=== PATIENT | female | born 1935 | race Caucasian/White ===

== ENCOUNTER 2016-12-27 10:29 | Emergency (ER) | payer OTHER ==
[~2016-12-27] VITALS: Ht 162.6 cm; Wt 73.0 kg
[~2016-12-27 10:29] MED LIST: ADVA500A INH; ALBU6.7H INH; ALEN1TAB48 PO; ANAS1TAB PO; ASPI1TAB69 PO; AZOP1SUS LEFT EYE; DOXY100C PO; FURO1TAB62 PO; LISI-515 PO; MEDR4PAK PO; SPIRCAP INH
[2016-12-27 10:35] VITALS: BP 156/74; PULSE 122; RESP 20; TEMP 98.3; O2SAT 93
[2016-12-27] MEDS ORDERED: SODIUM CHLORIDE 0.9% FLUSH 10 ML FLUSH IVF PRN (11:15)
[2016-12-27] MEDS ORDERED: methylPREDNISolone SOD SUCC 125 MG/2 ML VIAL IVP ONE (11:15)
[2016-12-27] MEDS: RESP: ALBUTEROL 2.5 MG/IPRATROPIUM 0.5 MG NEB (SCH) INH (11:25)
--- NOTE | 2016-12-27 11:30 | RADHPO ---
EXAM DATE/TIME: 12/27/2016 11:19 [facility] COMPARISON: CHEST SINGLE AP, August 08, 2016, 0:17. INDICATIONS : Short of breath. MEDICAL HISTORY : Hypertension. Chronic obstructive pulmonary disease. SURGICAL HISTORY : None. ENCOUNTER: Initial ACUITY: 1 day PAIN SCORE: 0/10 LOCATION: Bilateral chest FINDINGS: A single view of the chest demonstrates the lungs to be symmetrically aerated without evidence of mas s, infiltrate or effusion. Minimal linear densities in the lower lobes. The cardiomediastinal contou rs are unremarkable. Osseous structures are intact. CONCLUSION: Bibasilar subsegmental atelectasis. Eliazar Mojica MD on December 27, 2016 at 11:28 Board Certified Radiologist. This report was verified electronically.
[2016-12-27 11:33] LABS: AUTOMATED NEUTROPHIL # 3.9 TH/MM3 (1.8-7.7); BASOPHIL # 0.1 TH/MM3 (0-0.2); EOSINOPHIL # 0.2 TH/MM3 (0-0.4); EOSINOPHIL % 3.1 % (0.0-4.0); HEMATOCRIT 42.6 % (35.0-46.0); HEMO FLAGS DIFF FINAL; LYMPH % 17.3 % (9.0-44.0); MEAN CELL VOLUME 93.5 FL (80.0-100.0); MEAN CORPUSCULAR HEMOGLOBIN 30.9 PG (27.0-34.0); MEAN CORPUSCULAR HGB CONC 33.1 % (32.0-36.0); MONO % 8.3 % (0.0-8.0); NEUT % 70.3 % (16.0-70.0); PLATELET COUNT 201 TH/MM3 (150-450); RED BLOOD COUNT 4.55 MIL/MM3 (4.00-5.30); RED CELL DISTRIBUTION WIDTH 13.1 % (11.6-17.2); WHITE BLOOD COUNT 5.7 TH/MM3 (4.0-11.0)
--- NOTE | 2016-12-27 11:38 | PD ---
HPI Chief Complaint: Respiratory Symptoms Time Seen by Provider: 11:11 Travel History International Travel<30 days: No Contact w/Intl Traveler<30days: No Traveled to known affect area: No History of Present Illness HPI 81-year-old female with history of asthma, multiple medical issues, presents to the ER today because she was trying to unclog her drain and used 2 different drain caulking products at the same time this morning and it caused a chemical reaction and released feels that went into her face, and she states she started getting airway irritations and started getting shortness of breath and coughing. She states it is starting to subside now. She denies any splash in the face with the chemicals. She denies loss of consciousness, facial swelling , throat swelling, drooling, or any other issues. Modifying Factors: None Associated Signs & Symptoms: Throat irritation and shortness of breath after being exposed to chemical fumes from brush cleaner's Risk Factors: Asthma history PFSH Past Medical History Hx Anticoagulant Therapy: Yes Arthritis: Yes Cancer: Yes (breast right) Cardiovascular Problems: Yes (htn on meds) COPD: Yes Diminished Hearing: No GERD: Yes Herniated Disk: Yes Hypertension: Yes Respiratory: Yes (copd) Tetanus Vaccination: < 5 Years Influenza Vaccination: No ?: Not Menopausal: Yes Past Surgical History Appendectomy: Yes Eye Surgery: Yes (CATARACT REMOVAL- left eye) Gynecologic Surgery: Yes (right breast lumpectomy) Hysterectomy: Yes Other Surgery: Yes (back repair of herniated disc) Social History Alcohol Use: Yes ( GLASS WINE socially) Tobacco Use: No (quit 14 yrs ago smoked 3 ppd) Substance Use: No Allergies-Medications (Allergen,Severity, Reaction): Coded Allergies: Amoxicillin (Verified Allergy, Intermediate, NAUSEA/CRAMPING/VOMITING, 07/05) Reported Meds & Prescriptions Reported Meds & Active Scripts Active Reported Azopt Opth Drops (Brinzolamide) 1% Susp 1 Drop LEFT EYE DAILY Spiriva Handihaler (Tiotropium Inh) 18 Mcg Cap 18 Mcg INH DAILY 1 capsule = 18 mcg Lasix (Furosemide) 20 Mg Tab 20 Mg PO DAILY Aspirin 81 Mg Tabdr 81 Mg PO DAILY Lisinopril 20 Mg Tab 20 Mg PO BID Advair Diskus Inh (Fluticasone-Salmeterol Inh) 500-50 Mcg/Blist Aer 1 Puff INH BID Rinse mouth after use. Proventil Hfa 6.7 GM Inh (Albuterol Sulfate) 90 Mcg/Act Aer 2 Puff INH Q6H PRN Alendronate (Alendronate Sodium) 70 Mg Tab 70 Mg PO Q7D Anastrozole 1 Mg Tab 1 Mg PO DAILY Review of Systems Except as stated in HPI: all other systems reviewed are Neg Physical Exam Narrative GENERAL: Well-developed elderly white female patient who is in mild distress. Awake and oriented 3. SKIN: Focused skin assessment warm/dry. HEAD: Atraumatic. Normocephalic. EYES: Pupils equal and round. No scleral icterus. No injection or drainage. ENT: No nasal bleeding or discharge. Mucous membranes pink and moist. No significant airway edema. NECK: Trachea midline. No JVD. CARDIOVASCULAR: Regular rate and rhythm. No murmur appreciated. RESPIRATORY: No accessory muscle use. Mild wheezing throughout auscultation. Breath sounds equal bilaterally. GASTROINTESTINAL: Abdomen soft, non-tender, nondistended. Hepatic and splenic margins not palpable. MUSCULOSKELETAL: No obvious deformities. No clubbing. No cyanosis. No edema. NEUROLOGICAL: Awake and alert. No obvious cranial nerve deficits. Motor grossly within normal limits. Normal speech. PSYCHIATRIC: Appropriate mood and affect; insight and judgment normal. Data Data Last Documented VS Vital Signs Date Time Temp Pulse Resp B/P Pulse Ox O2 Delivery O2 Flow Rate FiO2 12/27/16 12:04 95 Nasal Cannula 2 12/27/16 12:04 130 20 154/55 12/27/16 10:35 98.3 Orders Complete Blood Count With Diff (12/27/16 11:11) Basic Metabolic Panel (Bmp) (12/27/16 11:11) Iv Access Insert/Monitor (12/27/16 11:11) Ecg Monitoring (12/27/16 11:11) Oximetry (12/27/16 11:11) Oxygen Administration (12/27/16 11:11) Chest, Single Ap (12/27/16 11:11) Sodium Chloride 0.9% Flush (Ns Flush) (12/27/16 11:15) Methylprednisolone So Succ Inj (Solumedr (12/27/16 11:15) Albuterol-Ipratropium Neb (Duoneb Neb) (12/27/16 11:15) Labs Laboratory Tests Test 12/27/16 11:25 White Blood Count 5.7 TH/MM3 Red Blood Count 4.55 MIL/MM3 Hemoglobin 14.1 GM/DL Hematocrit 42.6 % Mean Corpuscular Volume 93.5 FL Mean Corpuscular Hemoglobin 30.9 PG Mean Corpuscular Hemoglobin 33.1 % Concent Red Cell Distribution Width 13.1 % Platelet Count 201 TH/MM3 Mean Platelet Volume 8.6 FL Neutrophils (%) (Auto) 70.3 % Lymphocytes (%) (Auto) 17.3 % Monocytes (%) (Auto) 8.3 % Eosinophils (%) (Auto) 3.1 % Basophils (%) (Auto) 1.0 % Neutrophils # (Auto) 3.9 TH/MM3 Lymphocytes # (Auto) 1.0 TH/MM3 Monocytes # (Auto) 0.5 TH/MM3 Eosinophils # (Auto) 0.2 TH/MM3 Basophils # (Auto) 0.1 TH/MM3 CBC Comment DIFF FINAL Differential Comment Sodium Level 146 MEQ/L Potassium Level 3.9 MEQ/L Chloride Level 107 MEQ/L Carbon Dioxide Level 31.3 MEQ/L Anion Gap 8 MEQ/L Blood Urea Nitrogen 23 MG/DL Creatinine 1.40 MG/DL Estimat Glomerular Filtration 36 ML/MIN Rate Random Glucose 120 MG/DL Calcium Level 8.9 MG/DL [facility] Medical Decision Making Medical Screen Exam Complete: Yes Emergency Medical Condition: Yes Medical Record Reviewed: Yes Interpretation(s) Laboratory Tests Test 12/27/16 11:25 Neutrophils (%) (Auto) 70.3 % (16.0-70.0) Monocytes (%) (Auto) 8.3 % (0.0-8.0) Sodium Level 146 MEQ/L (136-145) Blood Urea Nitrogen 23 MG/DL (7-18) Creatinine 1.40 MG/DL (0.50-1.00) Estimat Glomerular Filtration 36 ML/MIN (>89) Rate Random Glucose 120 MG/DL (74-106) Last 24 hours Impressions Chest X-Ray 12/27/16 1111 Signed Impressions: Service Date/Time: , December 27, 2016 11:19 - CONCLUSION: Bibasilar subsegmental atelectasis. Eliazar Mojica MD Differential Diagnosis Coughing, shortness of breath after exposure to chemicalsasthma exacerbation versus allergic reaction/angioedema Narrative Course Case was discussed with poison control and they state that the main concern would be chlorine gas which is a airway irritant. Nebulizers and Solu-Medrol's was given in the ER. On reevaluation at 12 PM, she is feeling improved, states that she feels ready to go home. Vital signs are stable in the ER. Chest x- ray shows some subsegmental atelectasis but was otherwise unremarkable. At this point, my plan would be to release the patient with further treatment for asthma exacerbation. Return for any worsening in symptoms as needed. The plan has been discussed with her and she states understanding. Diagnosis Primary Impression: Chlorine gas exposure Additional Impression: Asthma exacerbation Med/Other Pt SpecificInfo: Prescription(s) given Scripts Albuterol 6.7 GM Inh (Proventil Hfa 6.7 GM Inh)90 Mcg/Act Aer2 Puff INH Q4-6H PRN (SHORTNESS OF BREATH) #1 INHALER Ref 0 Prov:Josué Ramirez MD 12/27/16 Prednisone 50 Mg Tab50 Mg PO DAILY #3 TAB Ref 0 Prov:Josué Ramirez MD 12/27/16 Disposition: 01 DISCHARGE HOME Condition: Stable Josué Ramirez MD December 27, 2016 11:38
[2016-12-27 11:45] LABS: BICARBONATE 31.3 MEQ/L (21.0-32.0)
[2016-12-27 11:49] LABS: POTASSIUM 3.9 MEQ/L (3.5-5.1)
[2016-12-27 12:04] VITALS: BP 154/55; PULSE 130; RESP 20; O2SAT 95
[2016-12-27] MEDS ORDERED: ALBU6.7H INH (12:14)
[2016-12-27] MEDS ORDERED: PRED50 PO (12:14)
== END 2016-12-27 12:27 | disposition home or self-care (01) ==
LOC: PHED 10:29
DX: J45.901 Unspecified asthma with (acute) exacerbation (principal); Z77.098 Contact with and (suspected) exposure to other hazardous, chiefly nonmedicinal, chemicals; J44.9 Chronic obstructive pulmonary disease, unspecified; I10 Essential (primary) hypertension; K21.9 Gastro-esophageal reflux disease without esophagitis; M19.90 Unspecified osteoarthritis, unspecified site; Z87.891 Personal history of nicotine dependence; Z79.899 Other long term (current) drug therapy; Z79.82 Long term (current) use of aspirin
CPT/HCPCS: 71010; 80048; 85025; 94640; 94664; 96374; 99284; J2930

== ENCOUNTER 2017-07-14 13:14 | Emergency (ER) | payer OTHER ==
[~2017-07-14] VITALS: Ht 162.6 cm; Wt 72.6 kg
[~2017-07-14 13:14] MED LIST changes: -DOXY100C PO; -MEDR4PAK PO; +PRED50 PO
[2017-07-14 13:48] VITALS: BP 107/52; PULSE 94; RESP 20; TEMP 99.5; O2SAT 95
--- NOTE | 2017-07-14 15:21 | PD ---
HPI Chief Complaint: Cold / Flu Symptoms Time Seen by Provider: 15:20 Travel History International Travel<30 days: No Contact w/Intl Traveler<30days: No Traveled to known affect area: No History of Present Illness HPI coughing over past 3 days, USUALLY HAS LOW BACK PAIN AT BASELINE THAT IMPROVES THROUGHOUT DAY WITH ACTIVITY....BUT SINCE THESE COUGHING FITS PATIENTS BACK PAIN HAS WORSENED. DENIES ANY URINARY/FECAL INCONTINENCE. DENIES FEVER/N/V/D/ pcp pmhx: copd, htn, PFSH Past Medical History Hx Anticoagulant Therapy: Yes Arthritis: Yes Cancer: Yes (breast right) Cardiovascular Problems: Yes (htn on meds) COPD: Yes Diminished Hearing: No GERD: Yes Herniated Disk: Yes Hypertension: Yes Respiratory: Yes (COPD) Menopausal: Yes Past Surgical History Appendectomy: Yes Eye Surgery: Yes (CATARACT REMOVAL- left eye) Gynecologic Surgery: Yes (right breast lumpectomy) Hysterectomy: Yes Other Surgery: Yes (back repair of herniated disc) Social History Alcohol Use: Yes ( GLASS WINE socially) Tobacco Use: No (quit 14 yrs ago smoked 3 ppd) Substance Use: No Allergies-Medications (Allergen,Severity, Reaction): Coded Allergies: amoxicillin (Unverified Allergy, Intermediate, NAUSEA/CRAMPING/VOMITING, 07/14/17) Reported Meds & Prescriptions Reported Meds & Active Scripts Active Naproxen EC (Naproxen) 375 Mg Tabdr 375 Mg PO BID Flexeril (Cyclobenzaprine HCl) 10 Mg Tab 10 Mg PO TID Reported Claritin (Loratadine) 10 Mg Cap 10 Mg PO DAILY PRN Hm Cinnamon (Cinnamon) 500 Mg Cap 1,000 Mg PO DAILY Calcium 600 with Vitamin D (Calcium Carbonate-Cholecalciferol) 600-400 mg-Unit Tab 1 Tab PO BID Magnesium 250 Mg Tab 500 Mg PO BID Aspirin Low Dose (Aspirin) 81 Mg Chew 81 Mg CHEW DAILY Azopt Opth Drops (Brinzolamide) 1% Susp 1 Drop LEFT EYE DAILY Spiriva Handihaler (Tiotropium Inh) 18 Mcg Cap 18 Mcg INH DAILY 1 capsule = 18 mcg Lasix (Furosemide) 20 Mg Tab 20 Mg PO DAILY Lisinopril 20 Mg Tab 20 Mg PO BID Advair Diskus Inh (Fluticasone-Salmeterol Inh) 500-50 Mcg/Blist Aer 1 Puff INH BID Rinse mouth after use. Proventil Hfa 6.7 GM Inh (Albuterol Sulfate) 90 Mcg/Act Aer 2 Puff INH Q6H PRN Alendronate (Alendronate Sodium) 70 Mg Tab 70 Mg PO Q7D Anastrozole 1 Mg Tab 1 Mg PO DAILY Review of Systems Except as stated in HPI: all other systems reviewed are Neg General / Constitutional: No: Fever Eyes: No: Visual changes HENT: No: Headaches Cardiovascular: No: Chest Pain or Discomfort Respiratory: No: Shortness of Breath Gastrointestinal: No: Abdominal Pain Genitourinary: No: Dysuria Musculoskeletal: Positive: Pain Skin: No Rash Neurologic: No: Weakness Psychiatric: No: Depression Endocrine: No: Polydipsia Hematologic/Lymphatic: No: Easy Bruising Physical Exam Narrative GENERAL: SKIN: Warm and dry. HEAD: Atraumatic. Normocephalic. EYES: Pupils equal and round. No scleral icterus. No injection or drainage. ENT: No nasal bleeding or discharge. Mucous membranes pink and moist. NECK: Trachea midline. No JVD. CARDIOVASCULAR: Regular rate and rhythm. RESPIRATORY: No accessory muscle use. Clear to auscultation. Breath sounds equal bilaterally. GASTROINTESTINAL: Abdomen soft, non-tender, nondistended. MUSCULOSKELETAL: Extremities without clubbing, cyanosis, or edema. No obvious deformities. MILD LOWER BACK SPASM NOTED, NEG SLR NEUROLOGICAL: Awake and alert. No obvious cranial nerve deficits. Motor grossly within normal limits. Five out of 5 muscle strength in the arms and legs. Normal speech. PSYCHIATRIC: Appropriate mood and affect; insight and judgment normal. Data Data Last Documented VS Vital Signs Date Time Temp Pulse Resp B/P (MAP) Pulse Ox O2 Delivery O2 Flow Rate FiO2 07/14/17 16:50 94 20 124/86 (99) 94 Room Air 07/14/17 13:48 99.5 Orders Orders Complete Blood Count With Diff (07/14/17 15:26) Comprehensive Metabolic Panel (07/14/17 15:26) Troponin I (07/14/17 15:26) Urinalysis - C+S If Indicated (07/14/17 15:26) Influenzae A/B Antigen (07/14/17 15:26) Iv Access Insert/Monitor (07/14/17 15:26) Electrocardiogram (07/14/17 15:26) Ecg Monitoring (07/14/17 15:26) Oximetry (07/14/17 15:26) Oxygen Administration (07/14/17 15:26) Chest, Single Ap (07/14/17 15:26) Sodium Chloride 0.9% Flush (Ns Flush) (07/14/17 15:30) Ct Abd/Pel W/O Iv Contrast (07/14/17 15:26) Ketorolac Inj (Toradol Inj) (07/14/17 15:30) Ed Discharge Order (07/14/17 18:06) Labs Laboratory Tests Test 07/14/17 16:23 White Blood Count 7.4 TH/MM3 Red Blood Count 4.24 MIL/MM3 Hemoglobin 13.5 GM/DL Hematocrit 39.4 % Mean Corpuscular Volume 92.9 FL Mean Corpuscular Hemoglobin 31.9 PG Mean Corpuscular Hemoglobin Concent 34.4 % Red Cell Distribution Width 13.3 % Platelet Count 147 TH/MM3 Mean Platelet Volume 8.8 FL Neutrophils (%) (Auto) 75.2 % Lymphocytes (%) (Auto) 11.3 % Monocytes (%) (Auto) 12.4 % Eosinophils (%) (Auto) 0.2 % Basophils (%) (Auto) 0.9 % Neutrophils # (Auto) 5.6 TH/MM3 Lymphocytes # (Auto) 0.8 TH/MM3 Monocytes # (Auto) 0.9 TH/MM3 Eosinophils # (Auto) 0.0 TH/MM3 Basophils # (Auto) 0.1 TH/MM3 CBC Comment DIFF FINAL Differential Comment Blood Urea Nitrogen 17 MG/DL Creatinine 1.20 MG/DL Random Glucose 109 MG/DL Total Protein 6.6 GM/DL Albumin 3.2 GM/DL Calcium Level 8.5 MG/DL Alkaline Phosphatase 71 U/L Aspartate Amino Transf (AST/SGOT) 16 U/L Alanine Aminotransferase (ALT/SGPT) 21 U/L Total Bilirubin 1.4 MG/DL Sodium Level 137 MEQ/L Potassium Level 3.7 MEQ/L Chloride Level 104 MEQ/L Carbon Dioxide Level 23.0 MEQ/L Anion Gap 10 MEQ/L Estimat Glomerular Filtration Rate 43 ML/MIN Troponin I 0.03 NG/ML MDM Medical Decision Making Medical Screen Exam Complete: Yes Emergency Medical Condition: Yes Medical Record Reviewed: Yes Interpretation(s) SINUS TACH, 102, PVC'S , LBBB, NO STEMI PATTERN Differential Diagnosis COPD FLARE V PNA V KIDNEY STONE Diagnosis Primary Impression: COPD FLARE MILD Additional Impression: Low back strain Qualified Codes: S39.012A - Strain of muscle, fascia and tendon of lower back , initial encounter Patient Instructions: General Instructions, Low Back Strain (ED) Scripts Naproxen DR (Naproxen EC) 375 Mg Tabdr 375 MG PO BID, #12 TAB 0 Refills Prov: Hal Bass MD 07/14/17 Cyclobenzaprine (Flexeril) 10 Mg Tab 10 MG PO TID for Muscle Spasm, #15 TAB 0 Refills Prov: Hal Bass MD 07/14/17 Disposition: 01 DISCHARGE HOME Condition: Stable Hal Bass MD Jul 14, 2017 15:21
[2017-07-14] MEDS ORDERED: KETOROLAC TROMETHAMINE 30 MG/ML (IVP) VIAL IV PUSH ONE (15:30)
[2017-07-14] MEDS ORDERED: SODIUM CHLORIDE 0.9% FLUSH 10 ML FLUSH IVF PRN (15:30)
[2017-07-14 15:35] VITALS: RESP 20; O2SAT 94
[2017-07-14 16:33] LABS: AUTOMATED NEUTROPHIL # 5.6 TH/MM3 (1.8-7.7); BASOPHIL # 0.1 TH/MM3 (0-0.2); BASOPHIL % 0.9 % (0.0-2.0); EOSINOPHIL % 0.2 % (0.0-4.0); HEMATOCRIT 39.4 % (35.0-46.0); HEMO FLAGS DIFF FINAL; LYMPH % 11.3 % (9.0-44.0); LYMPHOCYTE # 0.8 TH/MM3 (1.0-4.8); MEAN CELL VOLUME 92.9 FL (80.0-100.0); MEAN CORPUSCULAR HEMOGLOBIN 31.9 PG (27.0-34.0); MEAN CORPUSCULAR HGB CONC 34.4 % (32.0-36.0); MONO % 12.4 % (0.0-8.0); NEUT % 75.2 % (16.0-70.0); PLATELET COUNT 147 TH/MM3 (150-450); RED BLOOD COUNT 4.24 MIL/MM3 (4.00-5.30); RED CELL DISTRIBUTION WIDTH 13.3 % (11.6-17.2); WHITE BLOOD COUNT 7.4 TH/MM3 (4.0-11.0)
--- NOTE | 2017-07-14 16:34 | RADRPT ---
EXAM DATE/TIME: 07/14/2017 15:57 [facility] COMPARISON: No previous studies available for comparison. INDICATIONS : Bilateral flank pain. Evaluate for renal stone. ORAL CONTRAST: No oral contrast ingested. RADIATION DOSE: 22.19 CTDIvol (mGy) ; Patient motion MEDICAL HISTORY : Carcinoma, breast. Gastroesophageal reflux disease. Chronic obstructive pulmonary disease.Hypertensio n. SURGICAL HISTORY : Appendectomy. Hysterectomy. ENCOUNTER: Initial ACUITY: 2 days PAIN SCALE: 5/10 LOCATION: Bilateral flank TECHNIQUE: Volumetric scanning of the abdomen and pelvis was performed. Using automated exposure control and ad justment of the mA and/or kV according to patient size, radiation dose was kept as low as reasonably achievable to obtain optimal diagnostic quality images. DICOM format image data is available electro nically for review and comparison. FINDINGS: lung bases clear. No acute findings in the liver, spleen, adrenals or pancreas. Bilateral renal cysts . No renal calculi or obstructive uropathy identified. No free fluid or free air. No bowel obstruction. Mild constipation. CONCLUSION: 1. No acute findings. Specifically no renal calculi or obstructive uropathy. Bilateral renal cysts. Cedrick Sullivan MD on July 14, 2017 at 16:19 Board Certified Radiologist. This report was verified electronically.
[2017-07-14 16:41] LABS: CHLORIDE 104 MEQ/L (98-107); POTASSIUM 3.7 MEQ/L (3.5-5.1); SODIUM (NA) 137 MEQ/L (136-145)
[2017-07-14 16:45] LABS: ANION GAP 10 MEQ/L (5-15); BLOOD UREA NITROGEN 17 MG/DL (7-18)
[2017-07-14 16:48] LABS: ALT (GPT) 21 U/L (10-53); AST (GOT) 16 U/L (15-37); GLOMERULAR FILTRATION RATE 43 ML/MIN (>89)
[2017-07-14 16:49] LABS: TOTAL BILIRUBIN ADULT 1.4 MG/DL (0.2-1.0)
--- NOTE | 2017-07-14 16:49 | RADRPT ---
EXAM DATE/TIME: 07/14/2017 15:28 [place] Corrected on: July 16, 2017; fixed date and time [facility] COMPARISON: No previous studies available for comparison. INDICATIONS : Short of breath. MEDICAL HISTORY : None. SURGICAL HISTORY : None. ENCOUNTER: Initial ACUITY: 1 day PAIN SCORE: 6/10 LOCATION: Bilateral chest FINDINGS: A single view of the chest demonstrates the lungs to be symmetrically aerated without evidence of mas s, infiltrate or effusion. Linear atelectasis or scarring in the perihilar regions. The cardiomediast inal contours are unremarkable. Osseous structures are intact. CONCLUSION: 1. Minimal linear atelectasis or scarring in the perihilar regions. No focal consolidation or effusio n. Cedrick Sullivan MD on July 14, 2017 at 16:45 Board Certified Radiologist. Board Certified Radiologist. This report was verified electronically.
[2017-07-14 16:50] VITALS: BP 124/86; PULSE 94; RESP 20; O2SAT 94
[2017-07-14 16:51] LABS: ALKALINE PHOSPHATASE 71 U/L (45-117)
[2017-07-14] MEDS ORDERED: CLAR10CA3 PO (17:08)
[2017-07-14] MEDS ORDERED: ESSE250T PO (17:08)
[2017-07-14] MEDS ORDERED: CALC1TAB87 PO (17:08)
[2017-07-14] MEDS ORDERED: ASPI81CH6 CHEW (17:08)
[2017-07-14] MEDS ORDERED: CINN1CAP PO (17:08)
[2017-07-14 17:25] VITALS: BP 100/42; PULSE 96; RESP 18; O2SAT 96
[2017-07-14] MEDS ORDERED: CYCL10TA PO (17:41)
[2017-07-14] MEDS ORDERED: NAPR375T4 PO (17:41)
[2017-07-14 18:25] VITALS: BP 102/49; PULSE 94; RESP 18; O2SAT 95
[2017-07-14 18:40] VITALS: RESP 18
--- NOTE | 2017-07-14 21:32 | EKG ---
Date Performed: 07/14/2017 Time Performed: 15:36:57 PTAGE: 81 years EKG: SINUS TACHYCARDIA WITH OCCASIONAL VENTRICULAR PREMATURE COMPLEXES WITH OCCASIONAL SUPRAVENT RICULAR PREMATURE COMPLEXES LEFT BUNDLE BRANCH BLOCK ABNORMAL ECG PREVIOUS TRACING : 08/08/2016 00.20 Compared to previous tracing, PVCs and PAC are now presentl . DOCTOR: Fito Quijano Interpretating Date/Time 07/14/2017 21:31:06
== END 2017-07-14 19:01 | disposition home or self-care (01) ==
LOC: PHED 13:14
DX: J44.1 Chronic obstructive pulmonary disease with (acute) exacerbation (principal); S39.012A Strain of muscle, fascia and tendon of lower back, initial encounter; I10 Essential (primary) hypertension; R00.0 Tachycardia, unspecified; X58.XXXA Exposure to other specified factors, initial encounter; Z87.891 Personal history of nicotine dependence
CPT/HCPCS: 71010; 74176; 80053; 84484; 85025; 87804; 93005; 96374; 99285; J1885

== ENCOUNTER 2018-03-24 07:46 | Observation (INO) ==
[2018-03-24] MEDS ORDERED: Morphine Inj 4 MG/ML Vial IV.PUSH ONE (08:10)
--- NOTE | 2018-03-24 08:29 | ED ---
HPI General Chief complaint: Back Pain/Injury Stated complaint: Back Pain Time Seen by Provider: 03/24/18 08:03 Source: patient and RN notes reviewed Mode of arrival: wheelchair History of Present Illness HPI narrative: 82yF presenting with low back pain. The patient states that around 10:30 PM last night she began to have sudden-onset severe low back pain which occurred at rest, is constant, radiates down her left leg, severe, worse with movement/ weight bearing and not made better by anything, associated with "pins and needles" sensation in her LLE. She admits to falling at home 1 week ago but says that she landed on her right side. Denies head injury or LOC, neck pain, chest pain, or abdominal pain. Additionally denies bowel or bladder incontinence/ retention or saddle anesthesia. She had surgery on her lower back for herniated discs (L3) in the . She takes a baby aspirin daily but denies using other anticoagulants/ antiplatelets. Related Data Home Medications Medication Instructions Recorded Confirmed albuterol sulfate [Proventil HFA] 2 puff INHALATION QID PRN 03/24/18 03/24/18 alendronate 70 mg PO QWEEK 03/24/18 03/24/18 aspirin [Aspirin Low Dose] 81 mg PO DAILY 03/24/18 03/24/18 fluticasone-salmeterol [Advair 1 inh INHALATION Q12H 03/24/18 03/24/18 Diskus] lisinopril 20 mg PO DAILY 03/24/18 03/24/18 tiotropium bromide [Spiriva with 1 cap INHALATION DAILY 03/24/18 03/24/18 HandiHaler] Allergies Allergy/AdvReac Type Severity Reaction Status Date / Time amoxicillin Allergy Intermediate NAUSEA/CRAM Verified 03/24/18 07:53 PING/VOMITI NG Review of Systems Except as stated in HPI: all other systems reviewed are negative Constitutional Denies fever(s) ENT Denies nasal congestion Cardiovascular Denies chest pain Respiratory Denies cough Gastrointestinal Denies nausea and Denies vomiting Genitourinary Denies dysuria Musculoskeletal Reports back pain Neurologic Denies confusion Psychiatric Denies confusion PMFSH History History Provided By: Patient Medical History Medical History Back pain (Acute) Benign neoplasm (Acute) Benign neoplasm of colon (Acute) Breast cancer, right (Acute) COPD (chronic obstructive pulmonary disease) (Acute) Cataract (Acute) Cervicalgia (Acute) Glaucoma (Acute) H/O: hysterectomy (Acute) HTN (hypertension) (Acute) History of radiation therapy (Acute) Hyperlipidemia (Acute) Osteoporosis (Acute) Surgical History Surgical History History of appendectomy (Acute) Previous back surgery (Acute) Social History Social History Substance History: No History of Abuse Smoking Status: Former smoker Tobacco Type: Cigarettes How Often Do You Have a Drink Containing Alcohol: 2 to 3 times a week Recent Out of Country Travel within the Last 8 Weeks: No Immunization History Tetanus Immunization: <5 Years Hx Influenza Vaccine This Season: No Exam Const Other: Frail, mild to moderate painful distress HENMT Head: normocephalic and atraumatic Face and sinus: normal facial exam Eyes General: appearance normal, both eyes and all related structures Pupils: PERRL Neck Other: No midline C spine tenderness Chest Chest: normal inspection of the chest Resp Effort & Inspection: normal respiratory effort Auscultation: no rhonchi and no wheezes Cardio Rate: regular rate Rhythm: regular rhythm GI Inspection: non-distended Palpation: soft and nontender Skin General: no rashes or lesions noted Neuro General: alert, awake, oriented x3 and no focal motor deficits Extrem Other: Large ecchymosis to right hip, normal ROM (+) tenderness to left lateral hip, decreased ROM (+) midline lumbar tenderness, no step-off or deformity Motor strength 5/5 in right hip/ knee flexion/ extension and plantar/ dorsiflexion of foot Motor strength 4/5 in left hip/ knee flexion/ extension, plantar/ dorsiflexion of foot, no foot drop Sensation intact to bilateral lower extremities but patient reports paresthesias of LLE Psych Affect: normal affect Course Reevaluation(s) Reevaluation #1: Attempted to ambulate patient twice (after 1st and 2nd rounds of pain medications); even with 2 person assist, she is unable to ambulate in the ED. Will d/w inpatient team. Time: 12:52 Initial Documented Vital Signs Temperature 98.8 F 03/24/18 07:47 Pulse Rate 100 H 03/24/18 07:47 Respiratory Rate 20 03/24/18 07:47 Blood Pressure 111/51 L 08/06/18 07:47 Pulse Oximetry 96 03/24/18 07:47 Last Documented Vital Signs Temperature 98.8 F 03/24/18 07:47 Pulse Rate 98 H 03/24/18 10:50 Respiratory Rate 20 03/24/18 10:50 Blood Pressure 147/51 H 03/24/18 10:50 Pulse Oximetry 95 03/24/18 10:50 Medical Decision Making MDM Narrative Medical decision making narrative: Assessment: 82yF presenting with severe low back pain and LLE paresthesias/ weakness Plan: Pain control X-ray left hip MRI lumbar spine Addendum: Patient's MRI and X-ray left hip showed no acute pathology. Patient still unable to ambulate in ED even with 2 person assist. She was also found to have a UTI and mild TONY and was given IV fluids and cipro (allergic to amoxil). Case discussed with Dr. Schmitz, who agrees with keeping the patient for observation, pain control, PT eval. The patient understands and agrees with plan. Differential Diagnosis Differential Diagnosis: Differential diagnosis includes, but is not limited to: hip fracture, pelvic fracture, lumbar fracture, acute disc herniation, sciatica Lab Data Lab results reviewed: Yes I reviewed the patient's lab results. Result diagrams: 03/24/18 08:20 03/24/18 08:20 Lab Results 03/24/18 03/24/18 03/24/18 Range/Units 08:20 08:20 09:25 CBC w Diff Auto diff final WBC 8.1 (4.0-11.0) th/mm3 RBC 4.29 (4.00-5.30) mil/mm3 Hgb 13.4 (11.6-15.3) gm/dL Hct 40.6 (35.0-46.0) % MCV 94.8 (80.0-100.0) fL MCH 31.4 (27.0-34.0) pg MCHC 33.1 (32.0-36.0) % RDW 12.6 (11.6-17.2) % Plt Count 271 (150-450) th/mm3 MPV 9.1 (7.0-11.0) fL Neut % (Auto) 84.4 H (16.0-70.0) % Lymph % (Auto) 7.0 L (9.0-44.0) % [place] % (Auto) 6.6 (0.0-8.0) % Eos % (Auto) 1.4 (0.0-4.0) % Baso % (Auto) 0.6 (0.0-2.0) % Neut # (Auto) 6.9 (1.8-7.7) th/mm3 Lymph # (Auto) 0.6 L (1.0-4.8) th/mm3 [place] # (Auto) 0.5 (0.0-0.9) th/mm3 Eos # (Auto) 0.1 (0.0-0.4) th/mm3 Baso # (Auto) 0.0 (0.0-0.2) th/mm3 WBC Differential . Differential Comment . Sodium 138 (136-145) meq/L Potassium 3.8 (3.5-5.1) meq/L Chloride 100 (98-107) meq/L Carbon Dioxide 31.6 (21.0-32.0) meq/L Anion Gap 6 (5-15) meq/L BUN 28 H (7-18) mg/dL Creatinine 2.10 H (0.50-1.00) mg/dL Estimated GFR 22 L (>89) mL/min Random Glucose 108 H (74-106) mg/dL Calcium 8.8 (8.5-10.1) mg/dL Urine Color Yellow (Yellw/Straw) Urine Clarity Clear (Clear) Urine pH 6.0 (5.0-8.5) Ur Specific [place] 1.010 (1.002-1.035) Urine Protein Trace (Neg-Trace) mg/dL Urine Glucose (UA) Negative (Negative) mg/dL Urine Ketones Negative (Negative) mg/dL Urine Occult Blood Negative (Negative) Urine Nitrate Negative (Negative) Urine Bilirubin Negative (Negative) Urine Urobilinogen 0.2 (Less than 2) mg/dL Ur Leukocyte Esterase Moderate H (Negative) Urine RBC 0-3 (0-3) /hpf Urine WBC 6-8 H (0-5) /hpf Urine WBC Clumps Occasional H (None) Ur Squamous Epith Cells 0-5 (0-5) /hpf Micro UA Comment Culture indicated Urine Culture Comments Culture indicated Imaging Data Radiologist's impression: Hip X-Ray 03/24/18 08:10 CONCLUSION: 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 Lumbar Spine MRI 03/24/18 08:10 CONCLUSION: 1. No acute findings. Moderate degenerative change as above. Facet arthropathy. No significant canal or foraminal stenosis. Discharge Plan Discharge Disposition Patient Disposition: 30 Still Patient Discharge Condition Condition: Good Discharge Details Diagnosis: Sciatica, Intractable low back pain, Acute UTI, Acute kidney injury Physicians Team ED Provider: Raisa Chavez Primary Care Provider: Annabel Gamboa Rxs /Orders / Referrals /Forms Prescriptions: No Action lisinopril 20 mg Tablet 20 mg PO DAILY RF: 0 alendronate 70 mg Tablet 70 mg PO QWEEK RF: 0 aspirin [Aspirin Low Dose] 81 mg Tablet,Delayed Release (Dr/Ec) 81 mg PO DAILY RF: 0 fluticasone-salmeterol [Advair Diskus] 500-50 mcg/dose Blister With Device 1 inh INHALATION Q12H RF: 0 albuterol sulfate [Proventil HFA] 90 mcg/actuation Hfa Aerosol Inhaler 2 puff INHALATION QID PRN (Reason: Shortness Of Breath) RF: 0 tiotropium bromide [Spiriva with HandiHaler] 18 mcg Capsule, W/Inhalation Device 1 cap INHALATION DAILY RF: 0 Discharge Interventions Interventions: Vital Signs Last Done: 03/24/18 10:50 Status ED Status: With Doctor
[2018-03-24 08:45] LABS: Potassium 3.8 meq/L (3.5-5.1)
[2018-03-24 08:48] LABS: Calcium 8.8 mg/dL (8.5-10.1); Carbon Dioxide 31.6 meq/L (21.0-32.0)
[2018-03-24 08:49] LABS: Baso % (Auto) 0.6 % (0.0-2.0); Eos # (Auto) 0.1 th/mm3 (0.0-0.4); Eos % (Auto) 1.4 % (0.0-4.0); Hematocrit 40.6 % (35.0-46.0); Hemoglobin 13.4 gm/dL (11.6-15.3); Lymph # (Auto) 0.6 th/mm3 (1.0-4.8); Mean Corpuscular HGB Conc 33.1 % (32.0-36.0); Mean Corpuscular Hemoglobin 31.4 pg (27.0-34.0); Mean Corpuscular Volume 94.8 fL (80.0-100.0); Mean Platelet Volume 9.1 fL (7.0-11.0); Mono # (Auto) 0.5 th/mm3 (0.0-0.9); Mono % (Auto) 6.6 % (0.0-8.0); Neut # (Auto) 6.9 th/mm3 (1.8-7.7); Neut % (Auto) 84.4 % (16.0-70.0); Platelet Count 271 th/mm3 (150-450); Red Blood Count 4.29 mil/mm3 (4.00-5.30); Red Cell Distribution Width 12.6 % (11.6-17.2); White Blood Count 8.1 th/mm3 (4.0-11.0)
[2018-03-24] MEDS ORDERED: Sodium Chlor 0.9% Inj 500 ML IV.SIG ONE (09:09)
[2018-03-24 09:38] LABS: Bilirubin,Urine Negative (Negative); Clarity,Urine Clear (Clear); Color,Urine Yellow (Yellw/Straw); Glucose,Urine (UA) Negative (Negative); Leukocyte Esterase,Urine Moderate (Negative); Nitrite,Urine Negative (Negative); Urobilinogen,Urine 0.2 mg/dL (Less than 2)
--- NOTE | 2018-03-24 09:39 | XR ---
EXAM DATE: 03/24/2018 9:20 AM EDT AGE/SEX: 82 years / Female INDICATIONS: Left hip pain CLINICAL DATA: This is the patient's initial encounter. Patient reports that signs and symptoms have been present for 1 day and indicates a pain score of 10/10. MEDICAL/SURGICAL HISTORY: None. None. COMPARISON: No prior exams available for comparison. FINDINGS: Views of the pelvis and left hip are obtained. No fracture. Mild osteoarthritis of each hip. Osteitis pubis.. Osseous density is normal. Soft tissues are unremarkable. No radiopaque foreign bodies se en. Degenerative changes left SI joint. 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 Electronically signed by: Eliazar Mojica MD 03/24/2018 9:37 AM EDT
[2018-03-24 09:44] LABS: RBC,Urine 0-3 /hpf (0-3); Squamous Epithelial Cell,Urine 0-5 /hpf (0-5)
--- NOTE | 2018-03-24 11:39 | MR ---
EXAM DATE: 03/24/2018 11:22 AM EDT AGE/SEX: 82 years / Female INDICATIONS: Pain. CLINICAL DATA: This is the patient's initial encounter. Patient reports that signs and symptoms have been present for 3 days and indicates a pain score of 5/10. MEDICAL/SURGICAL HISTORY: Carcinoma, breast. Chronic obstructive pulmonary disease. Hypertens ion. Appendectomy. Fusion, lumbar. COMPARISON: No prior exams available for comparison. TECHNIQUE: Multiplanar, multisequence MRI of the lumbar spine was performed without contrast. Patie nt was scanned in a sitting position; neutral, flexion, and extension scans were performed in the sa gittal plane. FINDINGS: There is normal alignment of the lumbar spine. Degenerative disc disease at L3-4 results in minimal e ncroachment on the lateral recesses and neural foramina. There is mild to moderate facet arthropathy. There is no significant central canal stenosis within the lumbar spine. No direct nerve root compress ion is identified. Conus medullaris is intact. CONCLUSION: 1. No acute findings. Moderate degenerative change as above. Facet arthropathy. No significant canal or foraminal stenosis. Electronically signed by: Cedrick Sullivan MD 03/24/2018 11:38 AM EDT
[2018-03-24] MEDS ORDERED: Lidocaine 5% Patch T-DERMAL ONE (11:55)
[2018-03-24] MEDS ORDERED: predniSONE 20 MG Tablet PO ONE (11:55)
[2018-03-24] MEDS ORDERED: Ciprofloxacin 200 MG/100 ML 200 MG/100 ML PIGGYBACK IV.SIG ONE (13:03)
[2018-03-24] MEDS ORDERED: Bisacodyl 10 MG Supp RECTAL PRN ×2 (13:05→13:07)
[2018-03-24] MEDS ORDERED: Temazepam 15 MG Capsule PO PRN ×2 (13:05→13:07)
[2018-03-24] MEDS ORDERED: Morphine Sulfate Inj 2 MG/ML Vial IV.PUSH PRN (13:09)
[2018-03-24] MEDS ORDERED: Sod Chloride 0.9% Inj 1,000 ML IV.CONT SCH (13:15)
[2018-03-24] MEDS: Heparin - SQ 10,000 UNITS/ML Vial SQ SCH (14:07)
--- NOTE | 2018-03-24 17:01 | P.HPIM ---
History of Present Illness Service: [facility] Primary Care Physician: Annabel Gamboa MD Chief Complaint: Low back pain History of Present Illness: 82-year-old female with a medical history significant for COPD, chronic back pain, hypertension, osteoporosis who presented to the emergency room with complaint of acute low back pain. Patient reports it started suddenly. She reports the pain is associated with pins and needles sensation in her lower extremities. She reports that she had a fall at home a week ago when she landed on her right side. She has been feeling okay up until yesterday. In the emergency room, the patient was given pain medication. She was not able to ambulate in the emergency room. There has been no bowel or bladder incontinence. Imaging in the emergency room including lumbar MRI is unremarkable except for degenerated disease. - Diagnosis (1) Sciatica (2) Intractable low back pain (3) Acute kidney injury (4) Abnormal urinalysis PMFSH - History History Provided By: Patient - Medical History Medical History: Medical History (Last Reviewed 03/24/18 @ 17:10 by Mariana Schmitz MD) Back pain Benign neoplasm Benign neoplasm of colon Breast cancer, right COPD (chronic obstructive pulmonary disease) Cataract Cervicalgia Glaucoma H/O: hysterectomy HTN (hypertension) History of radiation therapy Hyperlipidemia Osteoporosis - Surgical History Surgical History: Surgical History (Last Reviewed 03/24/18 @ 17:10 by Mariana Schmitz MD) History of appendectomy Previous back surgery - Family History Family History: Family History (Last Updated 03/24/18 @ 17:10 by Mariana Schmitz MD) Other Family history non-contributory - Tobacco History Second Hand Smoke Exposure: No Tobacco Use In Past 30 Days: No Smoking Status: Former smoker Tobacco Type: Cigarettes - Alcohol History How Often Do You Have a Drink Containing Alcohol: 4 or more times a week - Substance Use History Substance History: No History of Abuse - Travel History Recent Travel Out of the Country Within the Last 8 Weeks: No - Immunization History Tetanus Immunization: Unsure Hx Influenza Vaccine This Season: No Medications and Allergies Active Medications: Active Medications Al Hydroxide/Mg Hydroxide (Milk Of Magnesia Liq) 30 ml PO Q12H PRN PRN Reason: Mild Constipation Albuterol (Ventolin Hfa Inh) 2 puff INH QID PRN PRN Reason: Shortness Of Breath Aspirin (Ecotrin) 81 mg PO DAILY [facility] Bisacodyl (Dulcolax Supp) 10 mg RECTAL DAILY PRN PRN Reason: SEVERE CONSITIPATION Budesonide/Formoterol Fumarate (Symbicort 160/4.5 Mcg Inh) 2 puff INH BID [facility] Heparin Sodium (Porcine) (Heparin Inj) 5,000 units SQ Q12H [facility] Last Admin: 03/24/18 14:07 Dose: 5,000 units Sodium Chloride (Ns Inj) 1,000 mls @ 100 mls/hr IV.CONT .Q10H [facility] Stop: 03/24/18 23:14 Last Admin: 03/24/18 14:06 Dose: 100 mls/hr Lactulose (Lactulose Liq) 30 ml PO DAILY PRN PRN Reason: SEVERE CONSITIPATION Lisinopril (Prinivil) 20 mg PO DAILY [facility] Morphine Sulfate (Morphine Inj) 2 mg IV.PUSH Q4H PRN PRN Reason: BREAKTHROUGH PAIN Oxycodone/Acetaminophen (Percocet 7.5/325 Mg) 1 tab PO Q4H PRN PRN Reason: PAIN SCALE 6 TO 10 Patch Removal (Remove Old Patch) 1 each T-DERMAL HS [facility] Stop: 03/24/18 21:01 Prednisone (Deltasone) 20 mg PO BID [facility] Senna/Docusate Sodium (Gali-Colace) 1 tab PO BID [facility] Sennosides (Senokot) 17.2 mg PO Q12H PRN PRN Reason: Moderate Constipation Temazepam (Restoril) 15 mg PO HS PRN PRN Reason: INSOMNIA Allergies Allergy/AdvReac Type Severity Reaction Status Date / Time amoxicillin Allergy Intermediate NAUSEA/CRAM Verified 03/24/18 14:23 PING/VOMITI NG Home Medications Medication Instructions Recorded Confirmed Type albuterol sulfate [Proventil HFA] 2 puff INHALATION QID PRN 03/24/18 03/24/18 History alendronate 70 mg PO QWEEK 03/24/18 03/24/18 History aspirin [Aspirin Low Dose] 81 mg PO DAILY 03/24/18 03/24/18 History fluticasone-salmeterol [Advair 1 inh INHALATION Q12H 03/24/18 03/24/18 History Diskus] lisinopril 20 mg PO DAILY 03/24/18 03/24/18 History tiotropium bromide [Spiriva with 1 cap INHALATION DAILY 03/24/18 03/24/18 History HandiHaler] Exam Vital signs: Vital Signs 03/24/18 07:47 03/24/18 09:00 03/24/18 10:50 Temperature 98.8 F Pulse Rate 100 H 97 H 98 H Respiratory Rate 20 20 20 Blood Pressure 111/51 L 138/64 147/51 H Pulse Oximetry 96 90 L 95 03/24/18 13:04 Temperature Pulse Rate 93 H Respiratory Rate 18 Blood Pressure 143/72 H Pulse Oximetry Intake & Output 03/23/18 03/24/18 03/24/18 18:59 06:59 18:59 Intake Total 500 / 500 Balance 500 / 500 Weight 69 kg Intake: IV 500 / 500 Narrative: GENERAL: This is a well-nourished, well-developed patient, in no apparent distress. CARDIOVASCULAR: Normal rate and regular rhythm without murmurs, gallops, or rubs. RESPIRATORY: Good respiratory efforts. Breath sounds equal and clear to auscultation bilaterally. GASTROINTESTINAL: Abdomen soft, non-tender, non-distended. Normal active bowel sounds MUSCULOSKELETAL: Tender to palpation over the left lumbosacral area. Some lumbar discomfort with left straight leg test. NEURO: Alert & Oriented x4 to person, place, time, situation. Moves all ext x4 PSYCH: Appropriate mood and affect. Results - Labs CBC & Chem 7: 03/24/18 08:20 03/24/18 08:20 Labs: Short CBC 03/24/18 Range/Units 08:20 WBC 8.1 (4.0-11.0) th/mm3 Hgb 13.4 (11.6-15.3) gm/dL Hct 40.6 (35.0-46.0) % Plt Count 271 (150-450) th/mm3 BMP 03/24/18 08:20 Sodium 138 Potassium 3.8 Chloride 100 Carbon Dioxide 31.6 BUN 28 H Creatinine 2.10 H Calcium 8.8 Urine 03/24/18 Range/Units 09:25 Urine Color Yellow (Yellw/Straw) Urine Clarity Clear (Clear) Urine pH 6.0 (5.0-8.5) Ur Specific [place] 1.010 (1.002-1.035) Urine Protein Trace (Neg-Trace) mg/dL Urine Glucose (UA) Negative (Negative) mg/dL - Imaging Impressions Hip X-Ray 03/24/18 08:10 CONCLUSION: 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 Lumbar Spine MRI 03/24/18 08:10 CONCLUSION: 1. No acute findings. Moderate degenerative change as above. Facet arthropathy. No significant canal or foraminal stenosis. Caprini VTE Risk Assessment Caprini VTE Risk Assessment: Moderate/High Risk (score >= 2) Caprini Risk Assessment Model: Point Value = 1 Point Value = 2 Point Value = 3 Point Value = 5 Age 41-60 Minor surgery BMI > 25 kg/m2 Swollen legs Varicose veins or History of unexplained or recurrent spontaneous Oral contraceptives or hormone replacement Sepsis (< 1 month) Serious lung disease, including pneumonia (< 1 month) Abnormal pulmonary function Acute myocardial infarction Congestive heart failure (< 1 month) History of inflammatory bowel disease Medical patient at bed rest Age 61-74 Arthroscopic surgery Major open surgery (> 45 min) Laparoscopic surgery (> 45 min) Malignancy Confined to bed (> 72 hours) Immobilizing plaster cast Central venous access Age >= 75 History of VTE Family history of VTE Factor V Leiden Prothrombin 51525L Lupus anticoagulant Anticardiolipin antibodies Elevated serum homocysteine Heparin-induced thrombocytopenia Other congenital or acquired thrombophilia Stroke (< 1 month) Elective arthroplasty Hip, pelvis, or leg fracture Acute spinal cord injury (< 1 month) Prophylaxis Regimen: Total Risk Factor Score Risk Level Prophylaxis Regimen 0-1 Low Early ambulation 2 Moderate Order ONE of the following: *Sequential Compression Device (SCD) *Heparin 5000 units SQ BID 3-4 Higher Order ONE of the following medications: *Heparin 5000 units SQ TID *Enoxaparin/Lovenox 40 mg SQ daily (WT < 150 kg, CrCl > 30 mL/min) *Enoxaparin/Lovenox 30 mg SQ daily (WT < 150 kg, CrCl > 10-29 mL/min) *Enoxaparin/Lovenox 30 mg SQ BID (WT < 150 kg, CrCl > 30 mL/min) AND/OR *Sequential Compression Device (SCD) 5 or more Highest Order ONE of the following medications: *Heparin 5000 units SQ TID (Preferred with Epidurals) *Enoxaparin/Lovenox 40 mg SQ daily (WT < 150 kg, CrCl > 30 mL/min) *Enoxaparin/Lovenox 30 mg SQ daily (WT < 150 kg, CrCl > 10-29 mL/min) *Enoxaparin/Lovenox 30 mg SQ BID (WT < 150 kg, CrCl > 30 mL/min) AND *Sequential Compression Device (SCD) Assessment and Plan - Assessment (1) Sciatica Code(s): M54.30 - Sciatica, unspecified side Status: Acute (2) Intractable low back pain Code(s): M54.5 - Low back pain Status: Acute (3) Acute kidney injury Code(s): N17.9 - Acute kidney failure, unspecified Status: Acute (4) Abnormal urinalysis Code(s): R82.90 - Unspecified abnormal findings in urine Status: Acute - Plan 82-year-old female with: Intractable back pain/inability to ambulate: Probably sciatica. MRI does not reveal any acute changes. Pain control with Percocet as needed and IV morphine for breakthrough. -Prednisone 20 mg twice daily. -PT to evaluate. Acute kidney injury: -Renal function worse compared to prior. Previous fall may be contributed to elevated creatinine. -Gentle IV fluid hydration. Follow-up renal function in the morning. Abnormal urinalysis: - No urinary tract symptoms. Hold off on antibiotics. Follow urine cultures. COPD: No acute exacerbation. -Continue home dose inhalers. Discharge Planning: Will probably need home health versus SNF. H&P: Quality - VTE Deep Vein Thrombosis/Pulmonary Embolism Present on Admission: No
[2018-03-24] MEDS ORDERED: Senna/Docusate Sodium 8.6/50 MG Tablet PO SCH (21:00)
[2018-03-24] MEDS: Budesonide-Formoterol 160/4.5 MCG 6 GM Inhaler INH SCH (21:01)
[2018-03-24] MEDS: Senna/Docusate Sodium 8.6/50 MG Tablet PO SCH (21:02)
[2018-03-24] MEDS: predniSONE 20 MG Tablet PO SCH (21:02)
[2018-03-25] MEDS: Heparin - SQ 10,000 UNITS/ML Vial SQ SCH ×3 (01:41→13:02)
[2018-03-25 06:57] LABS: Potassium 4.2 meq/L (3.5-5.1)
[2018-03-25 07:17] LABS: Calcium 7.9 mg/dL (8.5-10.1); Carbon Dioxide 27.6 meq/L (21.0-32.0)
[2018-03-25] MEDS: Budesonide-Formoterol 160/4.5 MCG 6 GM Inhaler INH SCH (08:37)
[2018-03-25] MEDS: predniSONE 20 MG Tablet PO SCH (08:39)
[2018-03-25] MEDS: Senna/Docusate Sodium 8.6/50 MG Tablet PO SCH (08:39)
[2018-03-25] MEDS ORDERED: Lisinopril 20 MG Tablet PO SCH (09:00)
--- NOTE | 2018-03-25 11:49 | P.PNIM ---
Subjective Interval history: Patient reports she is feeling much better today. Back pain is improved with the pain medication. She would like to go home. Physical Exam Vital signs: Vital Signs 03/24/18 13:04 03/24/18 17:35 03/24/18 20:00 Temperature 98.1 F 97.8 F Pulse Rate 93 H 93 H 83 Respiratory Rate 18 16 18 Blood Pressure 143/72 H 124/58 L 121/55 L Pulse Oximetry 93 L 94 L 03/25/18 00:00 03/25/18 08:00 Temperature 96.7 F L 96.7 F L Pulse Rate 65 85 Respiratory Rate 18 19 Blood Pressure 113/57 L 109/68 Pulse Oximetry 93 L 91 L Intake & Output 03/24/18 03/25/18 03/25/18 18:59 06:59 18:59 Intake Total 600 / 600 120 / 120 1000 / 1000 Balance 600 / 600 120 / 120 1000 / 1000 Weight 69 kg 71.3 kg Intake: IV 600 / 600 1000 / 1000 NS Inj 1,000 ML @ 100 mls/hr IV 1000 / 1000 .CONT .Q10H ANDREA Rx#:[id number] Cipro 200 MG/100 ML Inj 200 mg 100 / 100 In 100 ml @ 100 mls/hr IV.SIG ONCE ONE Rx#:[id number] Oral 120 / 120 Other: # Voids 2 Narrative: GENERAL: This is a well-nourished, well-developed patient, in no apparent distress. CARDIOVASCULAR: Normal rate and regular rhythm without murmurs, gallops, or rubs. RESPIRATORY: Good respiratory efforts. Breath sounds equal and clear to auscultation bilaterally. GASTROINTESTINAL: Abdomen soft, non-tender, non-distended. Normal active bowel sounds MUSCULOSKELETAL: Some tenderness to palpation over the lumbosacral area on the left. She reports some back discomfort when she lift her left leg off the bed. NEURO: Alert & Oriented x4 to person, place, time, situation. Moves all ext x4 PSYCH: Appropriate mood and affect. Results - Labs CBC & Chem 7: 03/24/18 08:20 03/25/18 06:30 Laboratory Results - last 24 hr 03/25/18 06:30 Sodium 142 Potassium 4.2 Chloride 107 Carbon Dioxide 27.6 Anion Gap 7 BUN 22 H Creatinine 1.30 H Estimated GFR 39 L Random Glucose 130 H Calcium 7.9 L D Assessment and Plan - Assessment (1) Sciatica Code(s): M54.30 - Sciatica, unspecified side Status: Acute (2) Intractable low back pain Code(s): M54.5 - Low back pain Status: Acute (3) Acute kidney injury Code(s): N17.9 - Acute kidney failure, unspecified Status: Acute (4) Abnormal urinalysis Code(s): R82.90 - Unspecified abnormal findings in urine Status: Acute - Plan 82-year-old female with: Intractable back pain/inability to ambulate on presentation: Probably sciatica. MRI does not reveal any acute changes. Pain control with Percocet as needed and IV morphine for breakthrough. -Prednisone 20 mg twice daily. -PT to evaluate today. Acute kidney injury: -Renal function worse on presentation compared to prior. Previous fall may be contributed to elevated creatinine. -Renal functions improved with IV hydration. Advised patient to continue with oral hydration at home. Abnormal urinalysis: - No urinary tract symptoms. DW Lab. Possible strep on preliminary culture - Will give short course of Cefuroxime. COPD: No acute exacerbation. -Continue home dose inhalers. Discharge Planning: Discharge patient to home Condition on discharge: Improved Regular Diet as tolerated Ad Vianca activity Rx written:Per med rec Follow-up with primary care physician
--- NOTE | 2018-03-25 12:11 | P.DCO ---
- Physical Therapy Order: Evaluate and treat, Improve ambulation, Strength and gait training - Home Health Nursing Order: Medical education, Nursing assessment with vital signs - Certification I have seen patient Jacquelyn Forbes on 03/25/18. My clinical findings support the need for the requested home health care services because: Deconditioned with increased weakness, Limited ability to care for self I certify that my clinical findings support that this patient is homebound because: Unsteady gait/balance
[2018-03-25 22:05] VITALS: BP 109/68; PULSE 85; RESP 19; TEMP 96.7; O2SAT 91
== END 2018-03-25 13:37 | disposition home health service (06) ==
LOC: PHEDA 07:46 → PHED 07:46 → PH3 07:46
PROVIDERS: ADMIT Family Medicine; ATTEND Family Medicine
DX: Z92.3 Personal history of irradiation; G89.29 Other chronic pain; E78.5 Hyperlipidemia, unspecified; Z79.82 Long term (current) use of aspirin; I10 Essential (primary) hypertension; Z79.83 Long term (current) use of bisphosphonates; M81.0 Age-related osteoporosis without current pathological fracture; N39.0 Urinary tract infection, site not specified; R82.90 Unspecified abnormal findings in urine; Z87.891 Personal history of nicotine dependence; M54.40 Lumbago with sciatica, unspecified side; N17.9 Acute kidney failure, unspecified; H40.9 Unspecified glaucoma; Z85.3 Personal history of malignant neoplasm of breast; Z79.899 Other long term (current) drug therapy; J44.9 Chronic obstructive pulmonary disease, unspecified

== ENCOUNTER 2018-06-02 07:38 | Inpatient (IN) ==
[2018-06-02] MEDS ORDERED: Sod Chloride 0.9% Inj 1,000 ML IV.CONT SCH (08:15)
--- NOTE | 2018-06-02 08:29 | ED ---
HPI General Chief complaint: QUALITY PROCESS LEAD Stated complaint: vaginal area pain Time Seen by Provider: 06/02/18 08:02 Source: patient Mode of arrival: ambulatory Limitations: no limitations History of Present Illness HPI narrative: This 82-year-old female is complaining of pubic pain. She says that this pain started yesterday and has been fairly constant. She has been having abdominal pain for about 2-1/2 months. The pain she has been having is pain that goes across her abdomen. It is quite severe at times. It seems worse during the day than at night. 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 She says she has had a 30 pound weight loss in the last 2 months. She says that she is vomiting at times. When she tries to eat she just has a few bites and then she has a loss of appetite. She has not noted that eating makes the pain worse. She says she has not been able to urinate feels she does not have to urinate. She was admitted to the hospital in March of this year for back pain and had an MRI at that time which did not show any cord compression. She has intermittent dry heaves. She says that 3 years ago she was diagnosed with breast cancer. She is on anastrozole and she believes she is in remission. She has a history of COPD stopped smoking about 15 years ago. Onset (ago): week(s) Location: abdomen and pelvis Radiation: abdomen Related Data Home Medications Medication Instructions Recorded Confirmed alendronate 70 mg PO QWEEK 06/02/18 06/02/18 anastrozole 1 mg PO DAILY 06/02/18 06/02/18 aspirin [Aspirin Low Dose] 81 mg PO DAILY 06/02/18 06/02/18 cinnamon bark [Cinnamon] 06/02/18 diltiazem HCl 120 mg PO DAILY 06/02/18 06/02/18 fluticasone-salmeterol [Advair 1 inh INHALATION Q12H 06/02/18 06/02/18 Diskus] magnesium 250 mg PO DAILY 06/02/18 06/02/18 omeprazole 20 mg PO DAILY 06/02/18 06/02/18 tiotropium bromide [Spiriva with 1 cap INHALATION DAILY 06/02/18 06/02/18 HandiHaler] Allergies Allergy/AdvReac Type Severity Reaction Status Date / Time amoxicillin Allergy Intermediate NAUSEA/CRAM Verified 06/02/18 07:54 PING/VOMITI NG Review of Systems Constitutional Reports poor appetite and Reports weight loss Gastrointestinal Reports abdominal pain, Reports change in bowel habits, Reports early satiety and Reports nausea Genitourinary Reports difficulty voiding [facility] Medical History Medical History Back pain (Acute) Benign neoplasm (Acute) Benign neoplasm of colon (Acute) Breast cancer, right (Acute) COPD (chronic obstructive pulmonary disease) (Acute) Cataract (Acute) Cervicalgia (Acute) Glaucoma (Acute) H/O: hysterectomy (Acute) HTN (hypertension) (Acute) History of radiation therapy (Acute) Hyperlipidemia (Acute) Osteoporosis (Acute) Surgical History Surgical History History of appendectomy (Acute) Previous back surgery (Acute) Family History Family History Other Family history non-contributory Social History Social History Substance History: No History of Abuse Second Hand Smoke Exposure: No Smoking Status: Former smoker Tobacco Type: Cigarettes How Often Do You Have a Drink Containing Alcohol: 4 or more times a week Recent Travel in [facility] within the Last 8 Weeks: No Recent Out of Country Travel within the Last 8 Weeks: No Immunization History Tetanus Immunization: Unsure Exam Narrative Exam Narrative: GENERAL: Elderly female SKIN: Focused skin assessment warm/dry. HEAD: Atraumatic. Normocephalic. EYES: Pupils equal and round. No scleral icterus. No injection or drainage. ENT: No nasal bleeding or discharge. Mucous membranes pink and moist. NECK: Trachea midline. No JVD. CARDIOVASCULAR: Regular rate and rhythm. No murmur appreciated. RESPIRATORY: No accessory muscle use. Clear to auscultation. Breath sounds equal bilaterally. GASTROINTESTINAL: Abdomen soft, non-tender, there appears to be some abdominal distention. The abdomen is soft. Hepatic and splenic margins not palpable. Pubic. Area is not tender MUSCULOSKELETAL: No obvious deformities. No clubbing. No cyanosis. No edema. NEUROLOGICAL: Awake and alert. No obvious cranial nerve deficits. Motor grossly within normal limits. Normal speech. Sensation of the legs including perineal sensation is intact PSYCHIATRIC: Appropriate mood and affect; insight and judgment normal. Course Reevaluation(s) Reevaluation #1: I was concerned that urinary distention might be causing her suprapubic pain. A Gonzales catheter was inserted and there is elevated residual volume of 500 cc. This has not alleviated her pain and she is continuing to have suprapubic pain. She says it is aggravated by movement. She has had a previous MRI of her back which showed degenerative changes but she now has urinary retention of unexplained origin on I feel we need to repeat an MRI. Initial Documented Vital Signs Temperature 98.6 F 06/02/18 07:48 Pulse Rate 85 06/02/18 07:48 Respiratory Rate 16 06/02/18 07:48 Blood Pressure 113/52 L 06/02/18 07:48 Pulse Oximetry 95 06/02/18 07:48 Last Documented Vital Signs Temperature 98.6 F 06/02/18 07:48 Pulse Rate 81 06/02/18 12:38 Respiratory Rate 16 06/02/18 12:38 Blood Pressure 116/46 L 06/02/18 12:38 Pulse Oximetry 91 L 06/02/18 12:38 Medical Decision Making MDM Narrative Medical decision making narrative: Patient complained of inability to void and a Gonzales catheter was inserted and 500 cc of urine obtained. Urinalysis is negative for infection. A CT of the abdomen and pelvis does not reveal an etiology for the weight loss and abdominal pain. Even after insertion of the Gonzales the patient was continuing to complain of pain in the suprapubic area. In view of the back pain and urinary retention and MRI of the back was done even though one had been done in March and again there is no evidence of cord compression. Patient continues to complain of pain. Her lab work shows a creatinine of 1.9 which is higher than normal and I suspect represents some dehydration. He is complaining of abdominal pain and weakness. I think she needs further evaluation Medical Screen Exam Complete: Yes Emergency Medical Condition: Yes Differential Diagnosis Differential Diagnosis: Differential includes bowel obstruction, abdominal cancer, diverticulitis, exacerbation of back pain Lab Data Result diagrams: 06/02/18 08:00 06/02/18 08:00 Lab Results 06/02/18 06/02/18 06/02/18 Range/Units 08:00 08:00 08:30 CBC w Diff Auto diff final WBC 6.7 (4.0-11.0) th/mm3 RBC 3.85 L (4.00-5.30) mil/mm3 Hgb 11.4 L (11.6-15.3) gm/dL Hct 36.0 (35.0-46.0) % MCV 93.4 (80.0-100.0) fL MCH 29.6 (27.0-34.0) pg MCHC 31.7 L (32.0-36.0) % RDW 15.3 (11.6-17.2) % Plt Count 216 (150-450) th/mm3 MPV 9.4 (7.0-11.0) fL Neut % (Auto) 71.5 H (16.0-70.0) % Lymph % (Auto) 13.5 (9.0-44.0) % [place] % (Auto) 11.6 H (0.0-8.0) % Eos % (Auto) 2.5 (0.0-4.0) % Baso % (Auto) 0.9 (0.0-2.0) % Neut # (Auto) 4.7 (1.8-7.7) th/mm3 Lymph # (Auto) 0.9 L (1.0-4.8) th/mm3 [place] # (Auto) 0.8 (0.0-0.9) th/mm3 Eos # (Auto) 0.2 (0.0-0.4) th/mm3 Baso # (Auto) 0.1 (0.0-0.2) th/mm3 WBC Differential . Differential Comment . Sodium 139 (136-145) meq/L Potassium 4.3 (3.5-5.1) meq/L Chloride 107 (98-107) meq/L Carbon Dioxide 22.0 (21.0-32.0) meq/L Anion Gap 10 (5-15) meq/L BUN 33 H (7-18) mg/dL Creatinine 1.90 H (0.50-1.00) mg/dL Estimated GFR 25 L (>89) mL/min Random Glucose 77 (74-106) mg/dL Calcium 8.3 L (8.5-10.1) mg/dL Total Bilirubin 0.9 (0.2-1.0) mg/dL AST 31 (15-37) U/L ALT 19 (10-53) U/L Alkaline Phosphatase 93 (45-117) U/L Total Protein 5.8 L (6.4-8.2) g/dL Albumin 2.7 L (3.4-5.0) g/dL Lipase 265 (73-393) U/L Urine Color Yellow (Yellw/Straw) Urine Clarity Clear (Clear) Urine pH 5.5 (5.0-8.5) Ur Specific [place] 1.020 (1.002-1.035) Urine Protein Negative (Neg-Trace) mg/dL Urine Glucose (UA) Negative (Negative) mg/dL Urine Ketones Negative (Negative) mg/dL Urine Occult Blood Negative (Negative) Urine Nitrate Negative (Negative) Urine Bilirubin Negative (Negative) Urine Urobilinogen 0.2 (Less than 2) mg/dL Ur Leukocyte Esterase Trace H (Negative) Urine WBC 0-5 (0-5) /hpf Ur Squamous Epith Cells 0-5 (0-5) /hpf Urine Bacteria Occasional H (None) /hpf Hyaline Casts 4-10 H (0-3) /lpf Urine Mucus Few H (Occasional) /lpf Micro UA Comment Cath-culture ind Ur Microscopic Review Microscopic reviewed Urine Culture Comments Cath-cult indicated Imaging Data Radiologist's impression: Abdomen/Pelvis CT 06/02/18 08:10 CONCLUSION: 1. No acute CT abnormality in the abdomen or pelvis. 2. Patient is status post hysterectomy with no significant adnexal mass. 3. 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 Lumbar Spine MRI 06/02/18 09:45 CONCLUSION: 1. No evidence for acute lumbar spine compression fracture. 2. Mild multilevel degenerative spondylosis of the lumbar spine without significant central canal or neural foraminal stenosis. 3. Please see above for detailed description of each level. Discharge Plan Discharge Disposition Patient Disposition: 30 Still Patient Discharge Condition Condition: Fair Discharge Details Diagnosis: Dehydration Physicians Team ED Provider: Fabián Read Primary Care Provider: Annabel Gamboa Rxs /Orders / Referrals /Forms Prescriptions: No Action anastrozole 1 mg Tablet 1 mg PO DAILY RF: 0 alendronate 70 mg Tablet 70 mg PO QWEEK RF: 0 aspirin [Aspirin Low Dose] 81 mg Tablet,Delayed Release (Dr/Ec) 81 mg PO DAILY RF: 0 fluticasone-salmeterol [Advair Diskus] 500-50 mcg/dose Blister With Device 1 inh INHALATION Q12H RF: 0 omeprazole 20 mg Capsule,Delayed Release(Dr/Ec) 20 mg PO DAILY RF: 0 diltiazem HCl 120 mg Capsule,Extended Release 24hr 120 mg PO DAILY RF: 0 magnesium 250 mg Tablet 250 mg PO DAILY RF: 0 tiotropium bromide [Spiriva with HandiHaler] 18 mcg Capsule, W/Inhalation Device 1 cap INHALATION DAILY RF: 0 cinnamon bark [Cinnamon] 500 mg Capsule RF: 0 Status ED Status: With Doctor
[2018-06-02 08:37] LABS: Baso # (Auto) 0.1 th/mm3 (0.0-0.2); Baso % (Auto) 0.9 % (0.0-2.0); Eos # (Auto) 0.2 th/mm3 (0.0-0.4); Eos % (Auto) 2.5 % (0.0-4.0); Hemoglobin 11.4 gm/dL (11.6-15.3); Lymph # (Auto) 0.9 th/mm3 (1.0-4.8); Lymph % (Auto) 13.5 % (9.0-44.0); Mean Corpuscular HGB Conc 31.7 % (32.0-36.0); Mean Corpuscular Hemoglobin 29.6 pg (27.0-34.0); Mean Corpuscular Volume 93.4 fL (80.0-100.0); Mean Platelet Volume 9.4 fL (7.0-11.0); Mono # (Auto) 0.8 th/mm3 (0.0-0.9); Mono % (Auto) 11.6 % (0.0-8.0); Neut # (Auto) 4.7 th/mm3 (1.8-7.7); Neut % (Auto) 71.5 % (16.0-70.0); Platelet Count 216 th/mm3 (150-450); Red Blood Count 3.85 mil/mm3 (4.00-5.30); Red Cell Distribution Width 15.3 % (11.6-17.2); White Blood Count 6.7 th/mm3 (4.0-11.0)
[2018-06-02 08:39] LABS: Bilirubin,Urine Negative (Negative); Clarity,Urine Clear (Clear); Color,Urine Yellow (Yellw/Straw); Glucose,Urine (UA) Negative (Negative); Leukocyte Esterase,Urine Trace (Negative); Nitrite,Urine Negative (Negative); PH,Urine 5.5 (5.0-8.5); Urobilinogen,Urine 0.2 mg/dL (Less than 2)
[2018-06-02 08:59] LABS: Chloride 107 meq/L (98-107); Potassium 4.3 meq/L (3.5-5.1); Sodium 139 meq/L (136-145)
[2018-06-02 09:01] LABS: Calcium 8.3 mg/dL (8.5-10.1)
[2018-06-02 09:01] LABS: Bacteria,Urine Occasional /hpf; Mucus,Urine Few /lpf (Occasional); Squamous Epithelial Cell,Urine 0-5 /hpf (0-5); WBC,Urine 0-5 /hpf (0-5)
[2018-06-02 09:02] LABS: Albumin 2.7 g/dL (3.4-5.0); Anion Gap 10 meq/L (5-15); Blood Urea Nitrogen 33 mg/dL (7-18); Glucose,Random 77 mg/dL (74-106); Lipase 265 U/L (73-393)
[2018-06-02 09:05] LABS: Alanine Aminotransferase 19 U/L (10-53); Aspartate Aminotransferase 31 U/L (15-37); Glomerular Filtration Rate 25 mL/min (>89)
[2018-06-02 09:06] LABS: Total Protein 5.8 g/dL (6.4-8.2)
[2018-06-02 09:08] LABS: Alkaline Phosphatase 93 U/L (45-117)
--- NOTE | 2018-06-02 09:10 | CT ---
EXAM DATE: 06/02/2018 8:26 AM EDT AGE/SEX: 82 years / Female INDICATIONS: Vaginal pain. No injury. CLINICAL DATA: This is the patient's initial encounter. Patient reports that signs and symptoms have been present for 1 day and indicates a pain score of 10/10. MEDICAL/SURGICAL HISTORY: Carcinoma, breast. Chronic obstructive pulmonary disease. Hypertens ion. Hysterectomy. Appendectomy. Back surgery. RADIATION DOSE: 12.30 CTDI (mGy) COMPARISON: [facility], US KIDNEY, BILATERAL, 05/28/2018. . TECHNIQUE: Multiple contiguous axial images were obtained through the abdomen. Images were obtained using multiple row detector helical technique. Using automated exposure control and adjustment of the mA and/or kV according to patient size, radiation dose was kept as low as reasonably achievable to o btain optimal diagnostic quality images. DICOM format image data is available electronically for rev iew and comparison. FINDINGS: LOWER LUNGS: The visualized lower lungs are clear. LIVER: Diffusely decreased hepatic density without volume loss. No intrahepatic ductal dilatation. SPLEEN: Homogeneous density without enlargement. PANCREAS: Grossly unremarkable. KIDNEYS: Kidneys are symmetrical in size without evidence for radiopaque renal calculi or hydronephr osis. There are multiple bilateral renal cysts with a dominant 2.2 cm cyst in the superior pole of th e right kidney. Several lesions are too small to fully characterize. There is a 5 mm hyperdense lesio n in the mid posterior left kidney likely reflecting a hemorrhagic cyst. ADRENAL GLANDS: Unremarkable. AORTA: Focal ectasia of the infrarenal abdominal aorta measuring up to 2.4 cm. BOWEL/MESENTERY: Mild sigmoid diverticulosis. Bowel otherwise appears unremarkable. No dilated small bowel loops. No free fluid or drainable fluid collections. ABDOMINAL WALL: Intact. BLADDER: Completely decompressed secondary to Gonzales catheter. REPRODUCTIVE: Uterus is surgically absent. No significant adnexal mass. BONY STRUCTURES: Degenerative spondylosis of the lumbar spine. CONCLUSION: 1. No acute CT abnormality in the abdomen or pelvis. 2. Patient is status post hysterectomy with no significant adnexal mass. 3. Extensive findings include hepatic steatosis, multiple bilateral renal cysts some of which are to o small to fully characterize, focal ectasia of the infrarenal aorta measuring up to 2.4 cm, sigmoid diverticulosis and degenerative spondylosis of the lumbar spine. Electronically signed by: Rodríguez Gaspar MD 06/02/2018 9:09 AM EDT
[2018-06-02] MEDS ORDERED: Morphine Sulfate Inj 2 MG/ML Vial IV.PUSH ONE (10:17)
--- NOTE | 2018-06-02 13:31 | MR ---
EXAM DATE: 06/02/2018 10:49 AM EDT AGE/SEX: 82 years / Female INDICATIONS: Pain. Low back pain and pelvic pain for two days. CLINICAL DATA: This is the patient's initial encounter. Patient reports that signs and symptoms have been present for 2 days and indicates a pain score of 7/10. MEDICAL/SURGICAL HISTORY: Hypertension. Carcinoma, breast. Chronic renal failure. COPD Hyst erectomy. Appendectomy. Back sx. COMPARISON: [facility], CT ABDOMEN & PELVIS W/O CONTRAST, 06/02/2018. . TECHNIQUE: Multiplanar, multisequence MRI of the lumbar spine was performed without contrast. Patie nt was scanned in a sitting position; neutral, flexion, and extension scans were performed in the sa gittal plane. FINDINGS: Vertebra: The most caudal-appearing lumbar vertebra is numbered as L5. Vertebral Body heights are in tact. Sagital alignment is maintained. Diffusely heterogeneous degenerative signal. Discs: Diffuse disc desiccation throughout the lumbar spine with disc space narrowing at L2-3 and L3 -4. Conus: Normal level and configuration. Paraspinal Soft Tissues: Multiple bilateral T2 hyperintense renal cystic lesions. Mild ectasia of the distal abdominal aorta similar to prior CT exam. No Retroperitoneal adenopathy. T12-L1: The thecal sac has a normal diameter. No evidence of disc bulge or protrusion. The neural foramina are patent bilaterally. L1-L2: Mild diffuse disc bulge. Mild effacement anterior thecal sac. No significant neural foramina l stenosis. L2-L3: Mild diffuse disc bulge with marginal osteophytes. Minimal ligamentum flavum hypertrophy and mild facet arthropathy. Mild effacement anterior thecal sac without significant neural foraminal ion nosis. L3-L4: Diffuse disc bulge with effacement of flavum hypertrophy and mild bilateral facet arthropath y. Mild effacement anterior thecal sac. No significant neural foraminal stenosis. L4-L5: Mild diffuse disc bulge, ligamentum flavum hypertrophy and bilateral facet arthropathy. Very mild effacement anterior thecal sac. No significant neural foraminal stenosis. L5-S1: Mild diffuse disc bulge and ligamentum flavum hypertrophy. Mild to moderate bilateral facet arthropathy. Mild effacement of the posterior lateral recesses, left greater than right secondary to facet hypertrophy. No significant neural foraminal stenosis. CONCLUSION: 1. No evidence for acute lumbar spine compression fracture. 2. Mild multilevel degenerative spondylosis of the lumbar spine without significant central canal or neural foraminal stenosis. 3. Please see above for detailed description of each level. Electronically signed by: Rodríguez Gaspar MD 06/02/2018 1:30 PM EDT
[2018-06-02] MEDS ORDERED: Bisacodyl 10 MG Supp RECTAL PRN (18:00)
[2018-06-02] MEDS ORDERED: Acetaminophen 325 MG Tablet PO PRN (18:00)
[2018-06-02] MEDS: Sod Chloride 0.9% Inj 1,000 ML IV.CONT SCH (18:21)
[2018-06-02] MEDS: Budesonide-Formoterol 160/4.5 MCG 6 GM Inhaler INH SCH (21:28)
[2018-06-02] MEDS: Senna/Docusate Sodium 8.6/50 MG Tablet PO SCH (21:28)
[2018-06-02] MEDS: Temazepam 15 MG Capsule PO PRN (21:32)
[2018-06-03] MEDS: Sod Chloride 0.9% Inj 1,000 ML IV.CONT SCH ×2 (04:21→14:23)
[2018-06-03 06:31] LABS: Baso # (Auto) 0.3 th/mm3 (0.0-0.2); Baso % (Auto) 4.5 % (0.0-2.0); Eos # (Auto) 0.1 th/mm3 (0.0-0.4); Eos % (Auto) 0.8 % (0.0-4.0); Hematocrit 31.7 % (35.0-46.0); Hemoglobin 10.9 gm/dL (11.6-15.3); Lymph # (Auto) 0.7 th/mm3 (1.0-4.8); Lymph % (Auto) 8.8 % (9.0-44.0); Mean Corpuscular HGB Conc 34.5 % (32.0-36.0); Mean Corpuscular Hemoglobin 31.8 pg (27.0-34.0); Mean Corpuscular Volume 92.3 fL (80.0-100.0); Mean Platelet Volume 9.9 fL (7.0-11.0); Mono # (Auto) 0.8 th/mm3 (0.0-0.9); Mono % (Auto) 10.3 % (0.0-8.0); Neut # (Auto) 5.5 th/mm3 (1.8-7.7); Neut % (Auto) 75.6 % (16.0-70.0); Platelet Count 174 th/mm3 (150-450); Red Blood Count 3.43 mil/mm3 (4.00-5.30); Red Cell Distribution Width 15.6 % (11.6-17.2); White Blood Count 7.4 th/mm3 (4.0-11.0)
[2018-06-03 06:43] LABS: Calcium 7.7 mg/dL (8.5-10.1)
[2018-06-03 06:44] LABS: Carbon Dioxide 22.8 meq/L (21.0-32.0)
[2018-06-03] MEDS ORDERED: Pantoprazole Sodium 20 MG DR Tablet PO SCH (09:00)
[2018-06-03] MEDS: dilTIAZem CD 120 MG Capsule PO SCH (09:05)
[2018-06-03] MEDS: Senna/Docusate Sodium 8.6/50 MG Tablet PO SCH ×2 (09:05→20:34)
--- NOTE | 2018-06-03 09:50 | P.HP ---
History of Present Illness Primary Care Physician: Annabel Gamboa MD Chief Complaint: Abdominal pain/pubic pain/back pain History of Present Illness: This is a pleasant 82-year-old female patient with a known medical history of breast cancer in remission, hypertension, COPD, hyperlipidemia, osteoporosis who presented to the ED with complaints of abdominal pain, pubic pain and back pain. Patient states that around Saturday in the morning as she was doing some housework she developed a sharp pain in her lower pubic area as well as her back. She states that the pain has been ongoing for the past couple days and is worse at night and with activity. Patient states that Saturday her significant other neighbor had to help her out of bed, with complaints of inability to walk. It should be noted that patient has had abdominal pain intermittently over the past couple months, she states that the abdominal pain is cramping and has been associated with nausea. She does have vomiting intermittently as well. She admits to a 30 pound weight loss over the past couple months. She has been unable to eat due to nausea and loss of appetite. PCP is Dr. Milian, last seen a week ago, was referred to a production controller who did adjust her blood pressure medications and stopped her diuretic. She does have some chronic kidney disease. It should be noted that patient was hospitalized in March for back pain, at that time an MRI was done and did not show any cord compression. Since that time patient has been suffering from intermittent back pain has been taking prescribed Percocet on and off as needed. Patient does have a scheduled appointment with a fire and explosion investigator in early June, she states that her last colonoscopy was years ago when with no significant findings. She denies any changes to her bowel habits, no bleeding or black stools. She does have a history of breast cancer is on anastrozole and she states that she has been in remission. She sees Dr. Alanis on a yearly basis, last seen in August. - Diagnosis (1) Intractable low back pain (2) Acute UTI (3) Acute kidney injury (4) Debility (5) Dehydration Review of Systems All other systems reviewed negative except as stated in HPI PMFSH - History History Provided By: Patient - Medical History Medical History: Medical History (Last Reviewed 06/03/18 @ 09:57 by Bonita Bceker) Back pain Benign neoplasm Benign neoplasm of colon Breast cancer, right COPD (chronic obstructive pulmonary disease) Cataract Cervicalgia Glaucoma H/O: hysterectomy HTN (hypertension) History of radiation therapy Hyperlipidemia Osteoporosis - Surgical History Surgical History: Surgical History (Last Reviewed 06/03/18 @ 09:57 by Bonita Becker) History of appendectomy Previous back surgery - Family History Family History: Family History (Last Reviewed 06/03/18 @ 09:57 by Bonita Becker) Other Family history non-contributory - Social History I have reviewed the patient's Social History: Yes - Tobacco History Second Hand Smoke Exposure: No Tobacco Use In Past 30 Days: No Smoking Status: Former smoker Tobacco Type: Cigarettes - Alcohol History How Often Do You Have a Drink Containing Alcohol: 4 or more times a week - Substance Use History Substance History: No History of Abuse - Travel History Recent Travel in the [place] Within the Last 8 Weeks: No Recent Travel Out of the Country Within the Last 8 Weeks: No - Immunization History Tetanus Immunization: Unsure Medications and Allergies Active Medications: Active Medications Acetaminophen (Tylenol) 650 mg PO Q4H PRN PRN Reason: Temp > 100.4, pain 1-5 Al Hydroxide/Mg Hydroxide (Milk Of Magnesia Liq) 30 ml PO Q12H PRN PRN Reason: Mild Constipation Anastrozole (Arimidex) 1 mg PO DAILY [facility] Aspirin (Ecotrin) 81 mg PO DAILY [facility] Last Admin: 06/03/18 09:05 Dose: 81 mg Bisacodyl (Dulcolax Supp) 10 mg RECTAL DAILY PRN PRN Reason: SEVERE CONSITIPATION Budesonide/Formoterol Fumarate (Symbicort 160/4.5 Mcg Inh) 2 puff INH BID [facility] Last Admin: 06/02/18 21:28 Dose: Not Given Diltiazem HCl (Cardizem Cd 24hr) 120 mg PO DAILY [facility] Last Admin: 06/03/18 09:05 Dose: 120 mg Sodium Chloride (Ns Inj) 1,000 mls @ 100 mls/hr IV.CONT .Q10H [facility] Last Admin: 06/03/18 04:21 Dose: 100 mls/hr Lactulose (Lactulose Liq) 30 ml PO DAILY PRN PRN Reason: SEVERE CONSITIPATION Ondansetron HCl (Zofran Inj) 4 mg IV.PUSH Q6H PRN PRN Reason: NAUSEA OR VOMITING Last Admin: 06/02/18 18:21 Dose: 4 mg Pantoprazole Sodium (Protonix) 20 mg PO DAILY [facility] Last Admin: 06/03/18 09:05 Dose: 20 mg Senna/Docusate Sodium (Gali-Colace) 1 tab PO BID [facility] Last Admin: 06/03/18 09:05 Dose: 1 tab Sennosides (Senokot) 17.2 mg PO Q12H PRN PRN Reason: Moderate Constipation Sodium Chloride (Ns Flush) 2 ml IV.FLUSH PRN PRN PRN Reason: FLUSH AFTER USING IV ACCESS Temazepam (Restoril) 15 mg PO HS PRN PRN Reason: INSOMNIA Last Admin: 06/02/18 21:32 Dose: 15 mg Tramadol HCl (Ultram) 50 mg PO Q8H PRN PRN Reason: PAIN SCALE 6 TO 10 Last Admin: 06/03/18 03:11 Dose: 50 mg Allergies Allergy/AdvReac Type Severity Reaction Status Date / Time amoxicillin Allergy Intermediate NAUSEA/CRAM Verified 06/02/18 07:54 PING/VOMITI NG Home Medications Medication Instructions Recorded Confirmed Type alendronate 70 mg PO QWEEK 06/02/18 06/02/18 History anastrozole 1 mg PO DAILY 06/02/18 06/02/18 History aspirin [Aspirin Low Dose] 81 mg PO DAILY 06/02/18 06/02/18 History cinnamon bark [Cinnamon] 06/02/18 History diltiazem HCl 120 mg PO DAILY 06/02/18 06/02/18 History fluticasone-salmeterol [Advair 1 inh INHALATION Q12H 06/02/18 06/02/18 History Diskus] magnesium 250 mg PO DAILY 06/02/18 06/02/18 History omeprazole 20 mg PO DAILY 06/02/18 06/02/18 History tiotropium bromide [Spiriva with 1 cap INHALATION DAILY 06/02/18 06/02/18 History HandiHaler] Exam Vital signs: Vital Signs 06/02/18 10:50 06/02/18 12:38 06/02/18 14:25 Temperature Pulse Rate 83 81 80 Respiratory Rate 16 16 16 Blood Pressure 116/40 L 116/46 L 118/49 L Pulse Oximetry 96 91 L 93 L 06/03/18 00:00 06/03/18 08:00 Temperature 97.6 F 97.7 F Pulse Rate 97 H 94 H Respiratory Rate 18 21 Blood Pressure 115/54 L 118/56 L Pulse Oximetry 96 95 Intake & Output 06/02/18 06/03/18 06/03/18 18:59 06:59 18:59 Intake Total 803 / 803 1000 / 1000 240 / 240 Output Total 550 / 550 500 / 500 Balance 253 / 253 500 / 500 240 / 240 Weight 62.2 kg Intake: IV 803 / 803 1000 / 1000 NS Inj 1,000 ML @ 100 mls/hr IV 803 / 803 1000 / 1000 .CONT .Q10H [facility] Rx#:[id number] Oral 0 / 0 240 / 240 Output: Urine 550 / 550 500 / 500 Other: Weight On Admission 62.2 kg Narrative: GENERAL: Well-developed, well-nourished patient complains of lower pubic and abdominal pain as well as back pain. Nauseous. SKIN: Warm and dry. No rash. HEAD: Normocephalic. Atraumatic. EYES: Pupils equal and round. No scleral icterus. No injection or drainage. ENT: No nasal bleeding or discharge. Mucous membranes pink and moist. NECK: Supple. Trachea midline. CARDIOVASCULAR: Regular rate and rhythm. S1, S2 noted. No murmur appreciated. Chest pain to palpation. RESPIRATORY: No accessory muscle use. Clear to auscultation. Breath sounds equal bilaterally. GASTROINTESTINAL: Abdomen soft, non-tender, nondistended. Normoactive bowel sounds x4. MUSCULOSKELETAL: No obvious deformities. Extremities without clubbing, cyanosis , or edema. NEUROLOGICAL: Awake and alert. No obvious cranial nerve deficits. Motor grossly within normal limits. 4/5 muscle strength in bilateral upper and lower extremities. Normal speech. PSYCHIATRIC: Appropriate mood and affect; insight and judgment normal. Results - Labs CBC & Chem 7: 06/03/18 06:15 06/03/18 06:15 Labs: Laboratory Results - last 24 hr 06/03/18 06/03/18 06:15 06:15 CBC w Diff Auto diff final WBC 7.4 RBC 3.43 L Hgb 10.9 L Hct 31.7 L MCV 92.3 MCH 31.8 MCHC 34.5 RDW 15.6 Plt Count 174 MPV 9.9 Neut % (Auto) 75.6 H Lymph % (Auto) 8.8 L [place] % (Auto) 10.3 H Eos % (Auto) 0.8 Baso % (Auto) 4.5 H Neut # (Auto) 5.5 Lymph # (Auto) 0.7 L [place] # (Auto) 0.8 Eos # (Auto) 0.1 Baso # (Auto) 0.3 H WBC Differential . Differential Comment . Sodium 144 Potassium 4.0 Chloride 112 H Carbon Dioxide 22.8 Anion Gap 9 BUN 22 H Creatinine 1.10 H Estimated GFR 47 L Random Glucose 66 L Calcium 7.7 L - Imaging Impressions Lumbar Spine MRI 06/02/18 09:45 CONCLUSION: 1. No evidence for acute lumbar spine compression fracture. 2. Mild multilevel degenerative spondylosis of the lumbar spine without significant central canal or neural foraminal stenosis. 3. Please see above for detailed description of each level. Caprini VTE Risk Assessment Caprini VTE Risk Assessment: Moderate/High Risk (score >= 2) Caprini Risk Assessment Model: Point Value = 1 Point Value = 2 Point Value = 3 Point Value = 5 Age 41-60 Minor surgery BMI > 25 kg/m2 Swollen legs Varicose veins or History of unexplained or recurrent spontaneous Oral contraceptives or hormone replacement Sepsis (< 1 month) Serious lung disease, including pneumonia (< 1 month) Abnormal pulmonary function Acute myocardial infarction Congestive heart failure (< 1 month) History of inflammatory bowel disease Medical patient at bed rest Age 61-74 Arthroscopic surgery Major open surgery (> 45 min) Laparoscopic surgery (> 45 min) Malignancy Confined to bed (> 72 hours) Immobilizing plaster cast Central venous access Age >= 75 History of VTE Family history of VTE Factor V Leiden Prothrombin [id number] Lupus anticoagulant Anticardiolipin antibodies Elevated serum homocysteine Heparin-induced thrombocytopenia Other congenital or acquired thrombophilia Stroke (< 1 month) Elective arthroplasty Hip, pelvis, or leg fracture Acute spinal cord injury (< 1 month) Prophylaxis Regimen: Total Risk Factor Score Risk Level Prophylaxis Regimen 0-1 Low Early ambulation 2 Moderate Order ONE of the following: *Sequential Compression Device (SCD) *Heparin 5000 units SQ BID 3-4 Higher Order ONE of the following medications: *Heparin 5000 units SQ TID *Enoxaparin/Lovenox 40 mg SQ daily (WT < 150 kg, CrCl > 30 mL/min) *Enoxaparin/Lovenox 30 mg SQ daily (WT < 150 kg, CrCl > 10-29 mL/min) *Enoxaparin/Lovenox 30 mg SQ BID (WT < 150 kg, CrCl > 30 mL/min) AND/OR *Sequential Compression Device (SCD) 5 or more Highest Order ONE of the following medications: *Heparin 5000 units SQ TID (Preferred with Epidurals) *Enoxaparin/Lovenox 40 mg SQ daily (WT < 150 kg, CrCl > 30 mL/min) *Enoxaparin/Lovenox 30 mg SQ daily (WT < 150 kg, CrCl > 10-29 mL/min) *Enoxaparin/Lovenox 30 mg SQ BID (WT < 150 kg, CrCl > 30 mL/min) AND *Sequential Compression Device (SCD) Assessment and Plan - Assessment (1) Intractable low back pain Code(s): M54.5 - Low back pain Status: Acute (2) Acute UTI Code(s): N39.0 - Urinary tract infection, site not specified Status: Acute (3) Acute kidney injury Code(s): N17.9 - Acute kidney failure, unspecified Status: Acute (4) Debility Code(s): R53.81 - Other malaise Status: Acute (5) Dehydration Code(s): E86.0 - Dehydration Status: Acute - Plan This is a pleasant 82-year-old female patient with: Debility, inability to walk Intractable back pain -Patient states she has been unable to walk times 2 days. Patient states she is usually able to walk at baseline and perform ADLs per self, uses walker at home. -MRI of lumbar spine was done did not show any cord compression. -Physical therapy has been consulted, evaluation pending. -Pain control with Ultram as needed per pain scale. IV morphine added as well. -Supportive care. Abnormal UA rule out UTI Acute on chronic kidney disease Urinary retention in ED -Creatinine 1.9 on presentation, has improved with IV fluids overnight. Will continue. -Avoid nephrotoxins. -Continue to monitor BMP. -UA showing presence of leukocyte esterase as well as white blood cells. Urine culture pending and follow. For now we will start on ciprofloxacin IV. Continue to monitor. -A Gonzales catheter was placed in ED, will attempt removal, monitor for any retention. Abdominal pain Loss of appetite Nausea and vomiting -Reports of 30-pound weight loss over the past 2 months as well as chronic nausea and abdominal pain. -Abdominal/pelvis CT done in ED, and reviewed showing no obvious etiology for the weight loss of abdominal pain. -MRI of the back as above. -IV Zofran available for nausea. Megace added to the regimen. -Supportive care. Ensure hydration, continue IV fluids for now. Encourage p.o. intake. History of hypertension: Continue to monitor BP trends. Continue home medications. History of hyperlipidemia: Continue home statin. DVT prophylaxis: SCDs. Heparin.
[2018-06-03] MEDS ORDERED: Aluminum/Magnesium/Simethacone Susp 30 ML UDC PO PRN (09:52)
[2018-06-03] MEDS: Budesonide-Formoterol 160/4.5 MCG 6 GM Inhaler INH SCH ×2 (10:22→20:35)
[2018-06-03] MEDS: Morphine Sulfate Inj 2 MG/ML Vial IV.PUSH PRN ×2 (10:35→16:19)
[2018-06-03] MEDS: Ciprofloxacin 400 MG/200 ML 400 MG/200 ML PIGGYBACK IV.SIG SCH ×2 (10:44→22:41)
[2018-06-03] MEDS: Anastrozole 1 MG Tablet PO SCH (12:49)
[2018-06-03] MEDS: Temazepam 15 MG Capsule PO PRN (20:34)
[2018-06-04] MEDS: Morphine Sulfate Inj 2 MG/ML Vial IV.PUSH PRN ×3 (02:40→22:39)
[2018-06-04] MEDS: Sod Chloride 0.9% Inj 1,000 ML IV.CONT SCH (02:46)
[2018-06-04] MEDS: Anastrozole 1 MG Tablet PO SCH (08:52)
[2018-06-04] MEDS: Senna/Docusate Sodium 8.6/50 MG Tablet PO SCH ×2 (08:53→22:40)
[2018-06-04] MEDS: dilTIAZem CD 120 MG Capsule PO SCH (08:53)
[2018-06-04] MEDS: Tiotropium Bromide 18 MCG/ACT Inhaler INH SCH (08:56)
[2018-06-04] MEDS: Budesonide-Formoterol 160/4.5 MCG 6 GM Inhaler INH SCH ×2 (08:57→22:40)
--- NOTE | 2018-06-04 09:29 | P.PNIM ---
Subjective Interval history: Follow up inability to walk, generalized weakness, and UTI. Patient seen and examined, no acute events overnight. Slept well. This morning she is complaining of continued abdominal pain, requiring prn Morphine. Abdomen is mildly distended. Has been eating slightly more. Continued on IVF. Still working with PT. Encouraged OOB to chair today. PT with recs to rehab at this point. Will continue to monitor. VSS. Afebrile. Physical Exam Vital signs: Vital Signs 06/03/18 10:37 06/03/18 12:00 06/03/18 16:00 Temperature 97.8 F 99.5 F Pulse Rate 61 90 Respiratory Rate 18 21 21 Blood Pressure 175/73 H 107/62 Pulse Oximetry 99 95 06/03/18 18:21 06/03/18 20:00 06/04/18 00:00 Temperature 99.1 F 98.7 F Pulse Rate 86 85 Respiratory Rate 18 18 17 Blood Pressure 108/51 L 106/50 L Pulse Oximetry 93 L 94 L 06/04/18 02:53 Temperature Pulse Rate Respiratory Rate 18 Blood Pressure Pulse Oximetry Intake & Output 06/03/18 06/04/18 06/04/18 18:59 06:59 18:59 Intake Total 1440 / 1440 1120 / 1120 Output Total 400 / 400 450 / 450 Balance 1040 / 1040 670 / 670 Weight 62.5 kg Intake: IV 1200 / 1200 1000 / 1000 NS Inj 1,000 ML @ 42 mls/hr IV. 1000 / 1000 800 / 800 CONT .[id number] [facility]RE[facility] Rx#: [id number] Cipro 400 MG/200 ML Inj 400 mg 200 / 200 200 / 200 In 200 ml @ 200 mls/hr IV.SIG Q12H [facility] Rx#:[id number] Oral 240 / 240 120 / 120 Output: Urine Amount (Catheter) 400 / 400 450 / 450 Indwelling Urethral Catheter 400 / 400 Straight 450 / 450 Narrative: GENERAL: Well-developed, well-nourished patient complains of lower pubic and abdominal pain SKIN: Warm and dry. No rash. HEAD: Normocephalic. Atraumatic. EYES: Pupils equal and round. No scleral icterus. No injection or drainage. ENT: No nasal bleeding or discharge. Mucous membranes pink and moist. NECK: Supple. Trachea midline. CARDIOVASCULAR: Regular rate and rhythm. S1, S2 noted. No murmur appreciated. Chest pain to palpation. RESPIRATORY: No accessory muscle use. Clear to auscultation. Breath sounds equal bilaterally. GASTROINTESTINAL: Abdomen soft, mildly distended. Pain to palpation in lower quadrants. Normoactive bowel sounds x4. MUSCULOSKELETAL: No obvious deformities. Extremities without clubbing, cyanosis , or edema. NEUROLOGICAL: Awake and alert. No obvious cranial nerve deficits. Motor grossly within normal limits. 4/5 muscle strength in bilateral upper and lower extremities. Normal speech. PSYCHIATRIC: Appropriate mood and affect; insight and judgment normal. - Urinary Catheter Management Indwelling Urethral Catheter Cath placed during this visit: yes Reason for continuing: Not indwelling catheter Insertion date: 06/02/18 Insertion time: 08:22 Straight Cath placed during this visit: yes, but has since been removed by the nurse Reason for continuing: Not indwelling catheter Insertion date: 06/04/18 Insertion time: 02:25 Removal date: 06/04/18 Removal time: 02:35 Results - Labs CBC & Chem 7: 06/03/18 06:15 06/03/18 06:15 Laboratory Results - last 24 hr 06/02/18 08:30 Urine Color Yellow Urine Clarity Clear Urine pH 5.5 Ur Specific [place] 1.020 Urine Protein Negative Urine Glucose (UA) Negative Urine Ketones Negative Urine Occult Blood Negative Urine Nitrate Negative Urine Bilirubin Negative Urine Urobilinogen 0.2 Ur Leukocyte Esterase Trace H Urine WBC 0-5 Ur Squamous Epith Cells 0-5 Urine Bacteria Occasional H Hyaline Casts 4-10 H Urine Mucus Few H Micro UA Comment Cath-culture ind Ur Microscopic Review Microscopic reviewed Urine Culture Comments Cath-cult indicated Microbiology 06/02/18 08:30 Catheterized Urine Urine Culture - Final Klebsiella pneumoniae Assessment and Plan - Assessment (1) Intractable low back pain Code(s): M54.5 - Low back pain Status: Acute (2) Acute UTI Code(s): N39.0 - Urinary tract infection, site not specified Status: Acute (3) Acute kidney injury Code(s): N17.9 - Acute kidney failure, unspecified Status: Acute (4) Debility Code(s): R53.81 - Other malaise Status: Acute (5) Dehydration Code(s): E86.0 - Dehydration Status: Acute - Plan This is a pleasant 82-year-old female patient with: Debility, inability to walk Intractable back pain -Patient states she has been unable to walk times 2 days. Patient states she is usually able to walk at baseline and perform ADLs per self, uses walker at home. -MRI of lumbar spine was done did not show any cord compression. -Physical therapy has been consulted, appreciate input recommendations. -Pain control with Ultram as needed per pain scale. IV morphine added as well. -Supportive care. UTI Acute on chronic kidney disease Urinary retention in ED -Creatinine 1.9 on presentation, has improved with IV fluids overnight. Will continue. -Avoid nephrotoxins. -Continue to monitor BMP. -UA showing presence of leukocyte esterase as well as white blood cells. Urine culture showing Klebsiella. Continue on ciprofloxacin IV. -A Gonzales catheter was placed in ED, will attempt removal, monitor for any retention. No retention overnight. Abdominal pain, continued Loss of appetite Nausea and vomiting -Reports of 30-pound weight loss over the past 2 months as well as chronic nausea and abdominal pain. -Abdominal/pelvis CT done in ED, and reviewed showing no obvious etiology for the weight loss of abdominal pain. -MRI of the back as above. -IV Zofran available for nausea. Megace added to the regimen. -Supportive care. Ensure hydration, continue IV fluids for now. Encourage p.o. intake. -Will add KUB today. Mildly distended. History of hypertension: Continue to monitor BP trends. Continue home medications. History of hyperlipidemia: Continue home statin. DVT prophylaxis: SCDs. Heparin. Discharge Planning: Await clinical improvement. Patient still with abdominal pain and pubic pain as well as generalized weakness.
[2018-06-04] MEDS: Ciprofloxacin 400 MG/200 ML 400 MG/200 ML PIGGYBACK IV.SIG SCH ×2 (10:31→22:39)
--- NOTE | 2018-06-04 13:51 | XR ---
EXAM DATE: 06/04/2018 12:00 AM EDT AGE/SEX: 82 years / Female INDICATIONS: Abdominal pain and distention. CLINICAL DATA: This is the patient's subsequent encounter. Patient reports that signs and symptoms h ave been present for 1 day and indicates a pain score of 5/10. MEDICAL/SURGICAL HISTORY: None. None. COMPARISON: No prior exams available for comparison. FINDINGS: There is mild gaseous distention of colon throughout. Small bowel is minimally distended. The appear ance would be potentially suggestive of some degree of ileus. No suspicious calcific densities. Nothi ng to suggest mass or visceromegaly. Degenerative changes in the spine and hips. CONCLUSION: Mild gaseous distention of bowel. Electronically signed by: Francisco Scales MD 06/04/2018 1:50 PM EDT
[2018-06-04] MEDS ORDERED: Simethicone 80 MG Chew Tablet PO ONE (13:53)
[2018-06-04] MEDS ORDERED: Fluconazole 100 MG Tablet PO ONE (14:48)
--- NOTE | 2018-06-04 18:43 | XR ---
EXAM DATE: 06/04/2018 12:00 AM EDT AGE/SEX: 82 years / Female INDICATIONS: Pain in back. CLINICAL DATA: This is the patient's subsequent encounter. Patient reports that signs and symptoms h ave been present for 2 days and indicates a pain score of 5/10. MEDICAL/SURGICAL HISTORY: Carcinoma, breast. Chronic obstructive pulmonary disease. Hypertens ion. Hysterectomy. Appendectomy. Back surgery. COMPARISON: [facility], HIP LEFT W AP PELVIS 2V, 03/24/2018. . FINDINGS: Examination of the pelvis demonstrates no evidence of fracture or dislocation. Bony mineralization i s decreased. Diffuse ileus noted. CONCLUSION: No acute bony abnormality. Osteopenia. Diffuse ileus. Electronically signed by: Cedrick Sullivan MD 06/04/2018 6:41 PM EDT
--- NOTE | 2018-06-04 19:23 | MB ---
cc: Alejo Szymanskin [place] DO DATE: 06/04/2018 HISTORY OF PRESENT ILLNESS: Ms. Forbes is a very pleasant 82-year-old female who developed pelvic pain on Saturday and had difficulty with urination as well as ambulation. She states that she is unable to empty her bladder and she had a Gonzales catheter inserted at that time for over 1 liter of fluid. Approximately 2 months ago, she states she developed a urinary tract infection. Along with this, she developed abdominal distention, bloating with nausea. She said she has had bowel movements, but denies any constipation. She denies any urinary retention prior to this episode. She also denies any prior urinary tract infections other than the one 2 months ago. She notes nocturia x 1 in the past. 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 A KUB x-ray was performed, consistent with an ileus. ALLERGIES: SHE IS ALLERGIC TO AMOXICILLIN. PAST MEDICAL HISTORY: Includes breast cancer, chronic low back pain, COPD, cataracts, glaucoma, hyperlipidemia, osteoporosis, hypertension. PAST SURGICAL HISTORY: Right breast lumpectomy, followed by XRT, hysterectomy for fibroid disease, appendectomy and back surgery. FAMILY HISTORY: Noncontributory. SOCIAL HISTORY: Former smoker, occasional drinker. No history of abuse. REVIEW OF SYSTEMS: Generalized weakness, difficulty ambulating, pelvic pain, abdominal distention, nausea, incomplete bladder emptying all noted. Denies chest pain, shortness of breath, headaches, vision changes. She does have a history of sciatica. The remaining review of systems were reviewed and were negative. PHYSICAL EXAMINATION: VITAL SIGNS: Temperature 98.3, heart rate 84, respiratory rate 20, blood pressure 104/51. GENERAL: Well-developed, well-nourished, 82-year-old female in no acute distress. HEENT: Normocephalic, atraumatic. Pupils equal, round, regular and reactive to light. Extraocular movements intact. NECK: Supple. HEART: Regular rate and rhythm. LUNGS: Clear bilaterally. ABDOMEN: Distended. It is soft. There is no rebound or guarding. She has pain on palpation over the symphysis pubis region and pain with abducting her lower extremities. Gonzales catheter is in place draining clear urine. EXTREMITIES: Show no cyanosis, clubbing, or edema. NEUROLOGIC: Cranial nerves 2-12 intact. LABORATORY DATA: White count 7.4, hemoglobin 10.9, hematocrit 31.7, platelet count 174, sodium 144, potassium 4.0, chloride 112, CO2 22.8, BUN 20, creatinine 1.10, down from 1.9, glucose is 7.7. Urinalysis: Occasional bacteria, 0-5 white cells, nitrate is negative. No blood was noted. ASSESSMENT AND PLAN: An 82-year-old white female with abdominal distention, possibly due to ileus with urinary tract infection 2 months ago, now with urinary retention with severe pelvic pain limiting mobility. Recommend maintaining Gonzales catheter. Would recommend orthopedic consult to evaluate for pelvic pain over the pubic tubercle and symphysis pubic region. Weaning narcotics is appropriate as this will affect retention. Continue Gonzales catheter now until the patient is ambulating, pain is controlled and ileus has resolved, then will give a void trial. Thank you for the consult and allowing me to participate in the care of this patient. DO Micheal Barriga , 05:48 PM , 05:59 PM
[2018-06-04] MEDS ORDERED: Sod Chloride 0.9% Inj 1,000 ML IV.SIG SCH (23:23)
[2018-06-05] MEDS: Sod Chloride 0.9% Inj 1,000 ML IV.CONT SCH ×3 (01:26→22:56)
[2018-06-05 06:35] LABS: Baso # (Auto) 0.1 th/mm3 (0.0-0.2); Baso % (Auto) 0.6 % (0.0-2.0); Eos % (Auto) 0.5 % (0.0-4.0); Hematocrit 31.1 % (35.0-46.0); Hemoglobin 10.3 gm/dL (11.6-15.3); Lymph # (Auto) 0.4 th/mm3 (1.0-4.8); Mean Corpuscular HGB Conc 33.1 % (32.0-36.0); Mean Corpuscular Hemoglobin 30.9 pg (27.0-34.0); Mean Corpuscular Volume 93.6 fL (80.0-100.0); Mean Platelet Volume 9.9 fL (7.0-11.0); Mono # (Auto) 0.8 th/mm3 (0.0-0.9); Neut # (Auto) 7.7 th/mm3 (1.8-7.7); Neut % (Auto) 84.9 % (16.0-70.0); Platelet Count 149 th/mm3 (150-450); Red Blood Count 3.33 mil/mm3 (4.00-5.30); Red Cell Distribution Width 14.8 % (11.6-17.2)
[2018-06-05 06:54] LABS: Potassium 3.7 meq/L (3.5-5.1)
[2018-06-05 07:18] LABS: Calcium 7.6 mg/dL (8.5-10.1)
--- NOTE | 2018-06-05 09:36 | P.PNIM ---
Subjective Interval history: Follow-up generalized weakness, inability to walk, urinary retention and severe pain. Patient seen and examined, lying flat in bed with continued pain in pubic area. She states she did sleep well overnight. Eating minimal amounts. Decreased appetite. Daughter at bedside and updated. Patient with continued Gonzales catheter, urology and to see patient yesterday. Encourage increase in mobility. It is felt that patient has a ileus. Continued gas distention of the abdomen. No BM times 3 days. Rest bowel. Continue IV fluids. Woke to family at length regarding patient's decompensation as well as debility and increased weakness. A palate of care consult has been placed to determine goals of care. Physical Exam Vital signs: Vital Signs 06/04/18 12:00 06/04/18 16:00 06/04/18 20:00 Temperature 98.3 F 99.1 F 98.9 F Pulse Rate 84 97 H 95 H Respiratory Rate 20 20 Blood Pressure 104/51 L 110/52 L 108/57 L Pulse Oximetry 91 L 92 L 92 L 06/04/18 23:19 06/05/18 00:35 06/05/18 04:00 Temperature 97.4 F L 99.2 F Pulse Rate 80 88 Respiratory Rate 18 20 Blood Pressure 88/45 L 96/45 L 105/55 L Pulse Oximetry 92 L 92 L 06/05/18 08:00 Temperature 98.5 F Pulse Rate 87 Respiratory Rate 20 Blood Pressure 119/58 L Pulse Oximetry 93 L Intake & Output 06/04/18 06/05/18 06/05/18 18:59 06:59 18:59 Intake Total 680 / 680 2320 / 2320 Output Total 600 / 600 625 / 625 Balance 80 / 80 1695 / 1695 Weight 61.4 kg Intake: IV 200 / 200 2200 / 2200 NS Inj 1,000 ML @ 42 mls/hr IV. 1000 / 1000 CONT .[id number] ANDREA Rx#: [id number] Cipro 400 MG/200 ML Inj 400 mg 200 / 200 200 / 200 In 200 ml @ 200 mls/hr IV.SIG Q12H ANDREA Rx#:[id number] NS Inj 1,000 ML @ Wide Open IV. 1000 / 1000 SIG BOLUS ANDREA Rx#:[id number] Oral 480 / 480 120 / 120 Output: Urine 600 / 600 625 / 625 Narrative: GENERAL: Well-developed, well-nourished patient complains of lower pubicpain SKIN: Warm and dry. No rash. HEAD: Normocephalic. Atraumatic. EYES: Pupils equal and round. No scleral icterus. No injection or drainage. ENT: No nasal bleeding or discharge. Mucous membranes pink and moist. NECK: Supple. Trachea midline. CARDIOVASCULAR: Regular rate and rhythm. S1, S2 noted. No murmur appreciated. Chest pain to palpation. RESPIRATORY: No accessory muscle use. Clear to auscultation. Breath sounds equal bilaterally. GASTROINTESTINAL: Abdomen soft, mildly distended. Pain to palpation in lower quadrants. Normoactive bowel sounds x4. MUSCULOSKELETAL: No obvious deformities. Extremities without clubbing, cyanosis , or edema. NEUROLOGICAL: Awake and alert. No obvious cranial nerve deficits. Motor grossly within normal limits. 3/5 muscle strength in bilateral upper and lower extremities. Normal speech. PSYCHIATRIC: Appropriate mood and affect; insight and judgment normal. - Urinary Catheter Management Indwelling Urethral Catheter Cath placed during this visit: yes Reason for continuing: Not indwelling catheter Insertion date: 06/02/18 Insertion time: 08:22 Straight Cath placed during this visit: yes, but has since been removed by the nurse Reason for continuing: Acute urinary retention Insertion date: 06/04/18 Insertion time: 15:00 Removal date: 06/04/18 Removal time: 02:35 Results - Labs CBC & Chem 7: 06/05/18 06:08 06/05/18 06:08 Laboratory Results - last 24 hr 06/05/18 06/05/18 06:08 06:08 CBC w Diff Auto diff final WBC 9.0 RBC 3.33 L Hgb 10.3 L Hct 31.1 L MCV 93.6 MCH 30.9 MCHC 33.1 RDW 14.8 Plt Count 149 L MPV 9.9 Neut % (Auto) 84.9 H Lymph % (Auto) 5.0 L [place] % (Auto) 9.0 H Eos % (Auto) 0.5 Baso % (Auto) 0.6 Neut # (Auto) 7.7 Lymph # (Auto) 0.4 L [place] # (Auto) 0.8 Eos # (Auto) 0.0 Baso # (Auto) 0.1 WBC Differential . Differential Comment . Sodium 138 Potassium 3.7 Chloride 107 Carbon Dioxide 23.0 Anion Gap 8 BUN 12 Creatinine 0.92 Estimated GFR 58 L Random Glucose 97 Calcium 7.6 L Microbiology 06/02/18 08:30 Catheterized Urine Urine Culture - Final Klebsiella pneumoniae - Imaging Impressions Abdomen X-Ray 06/04/18 00:00 CONCLUSION: Mild gaseous distention of bowel. Pelvis X-Ray 06/04/18 00:00 CONCLUSION: No acute bony abnormality. Osteopenia. Diffuse ileus. Assessment and Plan - Assessment (1) Intractable low back pain Code(s): M54.5 - Low back pain Status: Acute (2) Acute UTI Code(s): N39.0 - Urinary tract infection, site not specified Status: Acute (3) Acute kidney injury Code(s): N17.9 - Acute kidney failure, unspecified Status: Acute (4) Debility Code(s): R53.81 - Other malaise Status: Acute (5) Dehydration Code(s): E86.0 - Dehydration Status: Acute - Plan This is a pleasant 82-year-old female patient with: Debility, inability to walk Intractable back pain -Patient states she has been unable to walk times 2 days. Patient states she is usually able to walk at baseline and perform ADLs per self, uses walker at home. -MRI of lumbar spine was done did not show any cord compression. -Physical therapy has been consulted, appreciate input recommendations. Ultimately will need rehab at discharge. -Pain control with Ultram as needed per pain scale. IV morphine added as well. -Supportive care. UTI Acute on chronic kidney disease Urinary retention in ED -Creatinine 1.9 on presentation, has improved with IV fluids overnight. Will continue. GFR improved to 58 today creatinine within normal. -Avoid nephrotoxins. -Continue to monitor BMP. -UA showing presence of leukocyte esterase as well as white blood cells. Urine culture showing Klebsiella. Continue on ciprofloxacin IV. -A Gonzales catheter was placed in ED, attempted removal of catheter patient had resultant urinary retention. Consult placed to urology, appreciate input. Increase mobility. Abdominal pain, continued Loss of appetite Nausea and vomiting -Reports of 30-pound weight loss over the past 2 months as well as chronic nausea and abdominal pain. -Abdominal/pelvis CT done in ED, and reviewed showing no obvious etiology for the weight loss of abdominal pain. -MRI of the back as above. Will add MRI of the pelvis. -IV Zofran available for nausea. Megace added to the regimen. -Supportive care. Ensure hydration, continue IV fluids for now. -KUB showing mild ileus. Mildly distended. Rest bowel. Clear liquid diet. Pain control. History of hypertension: Continue to monitor BP trends. Continue home medications. History of hyperlipidemia: Continue home statin. DVT prophylaxis: SCDs. Heparin. Discharge Planning: Await clinical improvement. Patient still with abdominal pain and pubic pain as well as generalized weakness. Palliative care consult today.
[2018-06-05] MEDS: Morphine Sulfate Inj 2 MG/ML Vial IV.PUSH PRN ×3 (09:50→21:01)
[2018-06-05] MEDS: Anastrozole 1 MG Tablet PO SCH (09:55)
[2018-06-05] MEDS: dilTIAZem CD 120 MG Capsule PO SCH (09:55)
[2018-06-05] MEDS: Senna/Docusate Sodium 8.6/50 MG Tablet PO SCH ×2 (09:58→21:01)
[2018-06-05] MEDS: Tiotropium Bromide 18 MCG/ACT Inhaler INH SCH (09:59)
[2018-06-05] MEDS: Budesonide-Formoterol 160/4.5 MCG 6 GM Inhaler INH SCH ×2 (10:02→21:07)
[2018-06-05] MEDS: Ciprofloxacin 400 MG/200 ML 400 MG/200 ML PIGGYBACK IV.SIG SCH ×2 (11:08→22:32)
--- NOTE | 2018-06-05 11:17 | P.CONPAL ---
Consult Service: Palliative Care Requesting Physician: Bonita Becker Reason for Consult: a. To assist with evaluation and management of symptoms including: pain, debility, decreased appetite b. To assist medical decision maker(s) with: better understanding of current medical conditions; weighing benefits/burdens of medical treatment options; making medical treatment decisions. Primary Care Provider: Annabel Gamboa MD History of Present Illness History of Present Illness: Ms. Forbes is an 82-year-old female who presented to [facility] [place] on 06/02/2018 for evaluation of pubic pain that began 1 day earlier and had been relatively constant since that time. She reported that she has had diffuse abdominal pain that can be severe at times for approximately 2-1/2 months. Pain seems to be worse during the day and is exacerbated by eating. She reports intermittent vomiting and dry heaves. Patient reported a decrease in appetite with associated weight loss of approximately 30 pounds in the past 2 months. Patient has a history of chronic kidney disease. Her PCP (Dr. Milian) referred her to a insect control inspector who adjusted her blood pressure medications and stopped her diuretic. Patient was hospitalized in March with back pain. An MRI done at that time show any cord compression. Patient reports that since then she pain and has been using Percocet off and on as needed. She has an appointment to see a anesthesia associate in early June. Patient states her last colonoscopy was many years ago with no significant findings. Denies changes in bowel habits, rectal bleeding or black stools. Patient does have a history of breast cancer, diagnosed approximately 3 years ago. She is on anastrozole and believes she is in remission. She sees Dr. Alanis annually, last seen in August. Diagnostic data: * Vital signs: Pulse 85, respirations 16, BP 113/52, oxygen saturation 95% on room air and oral temperature 98.6 * WBC: 6.7, hemoglobin 11.4, hematocrit 36.0, platelets 216, neutrophils 71.5% * Sodium: 139, potassium 4.3, chloride 107, carbon dioxide 22.0, glucose 77, calcium 8.3 * BUN: 33, creatinine 1.90, GFR 25 * Total bilirubin: 0.9, AST 31, ALT 19, alkaline phosphatase 93 * Total protein: 5.8, albumin 2.7 * UA showing presence of leukocyte esterase as well as white blood cells. * CT abdomen/pelvis revealed no acute abnormalities. Stents of findings include hepatic steatosis, multiple bilateral renal cysts some of which are too small to characterize, focal ectasia of the infrarenal aorta measuring up to 2.4 cm degenerative spondylolisthesis lumbar spine. * MRI spine showed no evidence of acute lumbar spine compression fracture; mild multilevel degenerative spondylosis of the lumbar spine without significant central canal or neural foraminal stenosis Patient complained of inability to void. A Gonzales catheter was inserted and 500 mL's of urine drained. CT abdomen/pelvis did not reveal etiology for weight loss or abdominal pain. Her creatinine was slightly elevated from her baseline likely secondary to some dehydration. Patient was admitted for further evaluation. Urinalysis showing presence of leukocyte esterase as well as WBCs. Patient was started on IV ciprofloxacin. Urine culture + Klebsiella pneumoniae. KUB revealed mild gaseous distention of the bowel. Pelvis x-ray showed no acute bony abnormality; osteopenia; diffuse ileus. Urology was consulted to evaluate abdominal distention, possibly related to ileus with UTI a few months ago. Patient now has urinary retention and significant pelvic pain limiting mobility. Weaning narcotics is appropriate as they will affect urinary retention. Dr. Szymanski recommended orthopedic consult to evaluate for pelvic pain over the pubic tubercle and symphysis pubic region. Will maintain Gonzales catheter for now until the patient is ambulating, pain and ileus have resolved, then will attempt voiding trial. Follow-up chest x-ray this morning 06/05/2018 showing worsening gaseous colonic distention. Patient having ongoing generalized weakness, overall debilitation. She continues to have moderate pain in pubic symphysis region. Appetite is poor, eating small amounts. Persistent gas distention of the abdomen. No BM times 3 + days per patient. Patient is on a clear diet, receiving IVF. Palliative Care was consulted to assist with symptom management and to discuss with the family the benefits and burdens of her current illnesses and the options regarding future care. Function/Cognitive Trajectory: Patient/family report an acute decline in the past few months. Daughter states the patient was traveling to [facility] in January and [place] in February. Patient reports increased weakness and decreased appetite. She states she eats a few bites and then can not eat. Having intermittent vomiting and dry heaves. In recent days, the patient as been non-ambulatory secondary to pain and weakness. Review of Systems Constitutional: Reports anorexia, Reports weight loss (30 pound reported weight loss in the past 2 months) Gastrointestinal: Reports abdominal pain, Reports constipation (No BM in 3+ days ), Reports vomiting (Intermittent), Reports other (Abdominal distention) Comments: Urinary retention Psychiatric: Reports change in appetite (Decreased appetite) PMFSH - History History Provided By: Patient (Attention) - Medical History Medical History: Medical History (Last Updated 06/05/18 @ 10:45 by MARINA Delgado) Back pain Benign neoplasm of colon Breast cancer, right COPD (chronic obstructive pulmonary disease) Cataract Cervicalgia Glaucoma HTN (hypertension) History of radiation therapy Hyperlipidemia Osteoporosis - Surgical History Surgical History: Surgical History (Last Updated 06/05/18 @ 10:45 by MARINA Delgado) History of hysterectomy (Acute) History of appendectomy Previous back surgery - Family History Family History: Family History (Last Updated 06/05/18 @ 10:48 by MARINA Delgado) Mother Hypertension Hemorrhagic stroke Father Hypertension Hemorrhagic stroke - Social History I have reviewed the patient's Social History: Yes - Tobacco History Second Hand Smoke Exposure: No Tobacco Use In Past 30 Days: No Smoking Status: Former smoker (Quit smoking 15 years ago) Tobacco Type: Cigarettes years: 100 - Alcohol History How Often Do You Have a Drink Containing Alcohol: 4 or more times a week - Substance Use History Substance History: No History of Abuse - Travel History Recent Travel in the [place] Within the Last 8 Weeks: No Recent Travel Out of the Country Within the Last 8 Weeks: No - Immunization History Tetanus Immunization: Unsure Medications and Allergies Active Medications: Active Medications Acetaminophen (Tylenol) 650 mg PO Q4H PRN PRN Reason: Temp > 100.4, pain 1-5 Al Hydrox/Mg Hydrox/Simethicone (Mag-Al Plus Susp Liq) 30 ml PO Q6H PRN PRN Reason: DYSPEPSIA Al Hydroxide/Mg Hydroxide (Milk Of Magnesia Liq) 30 ml PO Q12H PRN PRN Reason: Mild Constipation Last Admin: 06/04/18 15:41 Dose: 30 ml Anastrozole (Arimidex) 1 mg PO DAILY [facility] Last Admin: 06/05/18 09:55 Dose: 1 mg Aspirin (Ecotrin) 81 mg PO DAILY [facility] Last Admin: 06/05/18 09:57 Dose: 81 mg Bisacodyl (Dulcolax Supp) 10 mg RECTAL DAILY PRN PRN Reason: SEVERE CONSITIPATION Budesonide/Formoterol Fumarate (Symbicort 160/4.5 Mcg Inh) 2 puff INH BID [facility] Last Admin: 06/05/18 10:02 Dose: 2 puff Clonidine HCl (Catapres) 0.1 mg PO Q6H PRN PRN Reason: SBP>160, DBP>90 Diltiazem HCl (Cardizem Cd 24hr) 120 mg PO DAILY [facility] Last Admin: 06/05/18 09:55 Dose: 120 mg Sodium Chloride (Ns Inj) 1,000 mls @ 42 mls/hr IV.CONT .[id number] [facility] Last Admin: 06/05/18 01:26 Dose: 42 mls/hr Ciprofloxacin/Dextrose (Cipro 400 Mg/200 Ml Inj) 400 mg in 200 mls @ 200 mls/ hr IV.SIG Q12H [facility] Last Infusion: 06/05/18 01:25 Dose: Infused Lactulose (Lactulose Liq) 30 ml PO DAILY PRN PRN Reason: SEVERE CONSITIPATION Megestrol Acetate (Megace) 40 mg PO BID [facility] Last Admin: 06/05/18 09:56 Dose: 40 mg Morphine Sulfate (Morphine Inj) 2 mg IV.PUSH Q4H PRN PRN Reason: PAIN SCALE 1 TO 10 Last Admin: 06/05/18 09:50 Dose: 2 mg Ondansetron HCl (Zofran Inj) 4 mg IV.PUSH Q6H PRN PRN Reason: NAUSEA OR VOMITING Last Admin: 06/04/18 12:08 Dose: 4 mg Pantoprazole Sodium (Protonix) 40 mg PO DAILY [facility] Last Admin: 06/05/18 09:57 Dose: 40 mg Senna/Docusate Sodium (Gali-Colace) 1 tab PO BID [facility] Last Admin: 06/05/18 09:58 Dose: 1 tab Sennosides (Senokot) 17.2 mg PO Q12H PRN PRN Reason: Moderate Constipation Sodium Chloride (Ns Flush) 2 ml IV.FLUSH PRN PRN PRN Reason: FLUSH AFTER USING IV ACCESS Last Admin: 06/03/18 10:37 Dose: 2 ml Tamsulosin HCl (Flomax) 0.4 mg PO DAILY [facility] Last Admin: 06/05/18 09:57 Dose: 0.4 mg Temazepam (Restoril) 15 mg PO HS PRN PRN Reason: INSOMNIA Last Admin: 06/03/18 20:34 Dose: 15 mg Tiotropium [place] (Spiriva 18 Mcg Inh) 18 mcg INH DAILY [facility] Last Admin: 06/05/18 09:59 Dose: Not Given Tramadol HCl (Ultram) 50 mg PO Q8H PRN PRN Reason: PAIN SCALE 6 TO 10 Last Admin: 06/05/18 03:23 Dose: 50 mg Allergies Allergy/AdvReac Type Severity Reaction Status Date / Time amoxicillin Allergy Intermediate NAUSEA/CRAM Verified 06/02/18 07:54 PING/VOMITI NG Home Medications Medication Instructions Recorded Confirmed Type alendronate 70 mg PO QWEEK 06/02/18 06/02/18 History anastrozole 1 mg PO DAILY 06/02/18 06/02/18 History aspirin [Aspirin Low Dose] 81 mg PO DAILY 06/02/18 06/02/18 History cinnamon bark [Cinnamon] 06/02/18 History diltiazem HCl 120 mg PO DAILY 06/02/18 06/02/18 History fluticasone-salmeterol [Advair 1 inh INHALATION Q12H 06/02/18 06/02/18 History Diskus] magnesium 250 mg PO DAILY 06/02/18 06/02/18 History omeprazole 20 mg PO DAILY 06/02/18 06/02/18 History tiotropium bromide [Spiriva with 1 cap INHALATION DAILY 06/02/18 06/02/18 History HandiHaler] Advance Directives Advance Directives Date on File: 08/25/13 Living Will: Yes Healthcare Surrogate: Yes Health Care Surrogate Name and Number: Maryebl Lares (daughter) Today's verbally stated goals: Goals are aggressive at this time. Patient's primary goal is symptom management of pain and then rehab to become stronger. Family/friends goals: Daughter states they will be supportive what ever the patient verbalizes as her medical treatment goals. She states she would not want her mother to suffer unnecessarily if she were to be diagnosed with a terminal condition or no treatment options were available to her. Ethical and Legal Issues: No known ethical or legal issues at this time. Physical Exam Vital Signs: Vital Signs - 24 hr 06/04/18 12:00 06/04/18 16:00 06/04/18 20:00 Temperature 98.3 F 99.1 F 98.9 F Pulse Rate 84 97 H 95 H Respiratory Rate 20 20 Blood Pressure 104/51 L 110/52 L 108/57 L Pulse Oximetry 91 L 92 L 92 L 06/04/18 23:19 06/05/18 00:35 06/05/18 04:00 Temperature 97.4 F L 99.2 F Pulse Rate 80 88 Respiratory Rate 18 20 Blood Pressure 88/45 L 96/45 L 105/55 L Pulse Oximetry 92 L 92 L 06/05/18 08:00 06/05/18 10:06 Temperature 98.5 F Pulse Rate 87 Respiratory Rate 20 17 Blood Pressure 119/58 L Pulse Oximetry 93 L I&O: Intake & Output 06/03/18 06/04/18 06/05/18 06/06/18 06:59 06:59 06:59 06:59 Intake Total 1803 / 1803 2560 / 2560 3000 / 3000 Output Total 1050 / 1050 850 / 850 1225 / 1225 Balance 753 / 753 1710 / 1710 1775 / 1775 Weight 62.2 kg 62.5 kg 61.4 kg Physical Exam: CONSTITUTIONAL/GENERAL: This is a frail, elderly female patient experiencing moderate abdominal pain TUBES/LINES/DRAINS: PIVm, Gonzales catheter SKIN: No jaundice, rashes, or lesions. No wounds seen anteriorly. Skin temperature appropriate. Not diaphoretic. HEAD: Atraumatic. Normocephalic. EYES: Pupils equal and round and reactive. Extraocular motions intact. No scleral icterus. No injection or drainage. Fundi not examined. ENT: Hearing grossly normal. Nose without bleeding or purulent drainage. NECK: Trachea midline. Supple, nontender. No palpable thyroid enlargement or nodularity. CARDIOVASCULAR: Regular rate and rhythm without murmurs, gallops, or rubs. No JVD. Peripheral pulses symmetric. RESPIRATORY/CHEST: Symmetric, unlabored respirations. Clear to auscultation. Breath sounds equal bilaterally. No wheezes, rales, or rhonchi. GASTROINTESTINAL: Abdomen distended, painful to palpation. Bowel sounds hypoactive GENITOURINARY: Without palpable bladder distension. Gonzales catheter in place. MUSCULOSKELETAL: Extremities without clubbing, cyanosis, or edema. No mottling or clubbing. LYMPHATICS: No palpable cervical or supraclavicular adenopathy. NEUROLOGICAL: Awake and alert. Motor and sensory grossly within normal limits. Follows commands. Cognitively sharp. Moves all extremities. PSYCHIATRIC: No obvious anxiety/depression. No apparent hallucinations or other psychotic thought process. Diagnostic Tests Laboratory: Laboratory Results - last 72 hr 06/02/18 06/03/18 06/03/18 08:30 06:15 06:15 CBC w Diff Auto diff final WBC 7.4 RBC 3.43 L Hgb 10.9 L Hct 31.7 L MCV 92.3 MCH 31.8 MCHC 34.5 RDW 15.6 Plt Count 174 MPV 9.9 Neut % (Auto) 75.6 H Lymph % (Auto) 8.8 L [place] % (Auto) 10.3 H Eos % (Auto) 0.8 Baso % (Auto) 4.5 H Neut # (Auto) 5.5 Lymph # (Auto) 0.7 L [place] # (Auto) 0.8 Eos # (Auto) 0.1 Baso # (Auto) 0.3 H WBC Differential . Differential Comment . Sodium 144 Potassium 4.0 Chloride 112 H Carbon Dioxide 22.8 Anion Gap 9 BUN 22 H Creatinine 1.10 H Estimated GFR 47 L Random Glucose 66 L Calcium 7.7 L Urine Color Yellow Urine Clarity Clear Urine pH 5.5 Ur Specific [place] 1.020 Urine Protein Negative Urine Glucose (UA) Negative Urine Ketones Negative Urine Occult Blood Negative Urine Nitrate Negative Urine Bilirubin Negative Urine Urobilinogen 0.2 Ur Leukocyte Esterase Trace H Urine WBC 0-5 Ur Squamous Epith Cells 0-5 Urine Bacteria Occasional H Hyaline Casts 4-10 H Urine Mucus Few H Micro UA Comment Cath-culture ind Ur Microscopic Review Microscopic reviewed Urine Culture Comments Cath-cult indicated 06/05/18 06/05/18 06:08 06:08 CBC w Diff Auto diff final WBC 9.0 RBC 3.33 L Hgb 10.3 L Hct 31.1 L MCV 93.6 MCH 30.9 MCHC 33.1 RDW 14.8 Plt Count 149 L MPV 9.9 Neut % (Auto) 84.9 H Lymph % (Auto) 5.0 L [place] % (Auto) 9.0 H Eos % (Auto) 0.5 Baso % (Auto) 0.6 Neut # (Auto) 7.7 Lymph # (Auto) 0.4 L [place] # (Auto) 0.8 Eos # (Auto) 0.0 Baso # (Auto) 0.1 WBC Differential . Differential Comment . Sodium 138 Potassium 3.7 Chloride 107 Carbon Dioxide 23.0 Anion Gap 8 BUN 12 Creatinine 0.92 Estimated GFR 58 L Random Glucose 97 Calcium 7.6 L Urine Color Urine Clarity Urine pH Ur Specific [place] Urine Protein Urine Glucose (UA) Urine Ketones Urine Occult Blood Urine Nitrate Urine Bilirubin Urine Urobilinogen Ur Leukocyte Esterase Urine WBC Ur Squamous Epith Cells Urine Bacteria Hyaline Casts Urine Mucus Micro UA Comment Ur Microscopic Review Urine Culture Comments Result Diagrams: 06/05/18 06:08 06/05/18 06:08 Microbiology: Microbiology 06/02/18 08:30 Urine Culture - Final Catheterized Urine Klebsiella pneumoniae Imaging: Abdomen/Pelvis CT 06/02/18 08:10 CONCLUSION: 1. No acute CT abnormality in the abdomen or pelvis. 2. Patient is status post hysterectomy with no significant adnexal mass. 3. 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 Lumbar Spine MRI 06/02/18 09:45 CONCLUSION: 1. No evidence for acute lumbar spine compression fracture. 2. Mild multilevel degenerative spondylosis of the lumbar spine without significant central canal or neural foraminal stenosis. 3. Please see above for detailed description of each level. Pelvis X-Ray 06/04/18 00:00 CONCLUSION: No acute bony abnormality. Osteopenia. Diffuse ileus. Abdomen X-Ray 06/05/18 00:00 CONCLUSION: Worsening gaseous colonic distention. Patient/Family Conference Issues Discussed: * Palliative care role, purpose, approach * Additional medical, psychosocial, and spiritual history * Patients general health, functional status, and cognitive changes in the months leading up to the current hospitalization * Patient/family understanding of the current medical problems * Patient/family understanding of prognosis * Patients goals of care as best understood from advance directives and/or conversations and/or values * Current medical treatment options and benefits/burdens of those options * Likely scenarios comparing ongoing aggressive care with a transition to comfort measures only * Questions answered to the best of my ability * Palliative care contact information provided Assessment and Plan - Disease Oriented Problem List (1) Acute UTI (2) Acute kidney injury (3) Dehydration Pertinent Non-Medical Issues: Psychosocial: Patient is originally from [place]. She and her family moved to [place] in the mid 1970s. She is a retired business sales clerk supervisor. She is . She had 4 adult children apparently only 2 children are living. She has had a significant other for approximately 20 years; his name is Luis. Spiritual: Islam salvador Legal: Patient completed a living will in 2013. Her daughter, Marybel, is designated as the healthcare surrogate decision-maker. Ethical issues impacting care: No known ethical issues impacting care at this time. Important Contacts: Luis Heart, significant other: [phone] (H) or [phone] (W) Marybel Lares, daughter: [phone] Prognosis: Patient is an 82-year-old female who has experienced an acute decline in recent months as evidenced by increased weakness, poor appetite and a 30 pound weight loss. She currently hospitalized with acute UTI, acute kidney injury and dehydration. She has severe abdominal pain, etiology unknown. Additional information is necessary to determine patient's overall prognosis, however given her poor performance status he will likely need rehab at discharge. Code Status: Full Code Plan: * FULL CODE * Decision making: Patient has designated her daughter, Marybel as the healthcare surrogate decision-maker. * Goals are aggressive at this time. Patient's primary goal is symptom management of pain and then rehab to become stronger. * Discussed patient with Bonita Becker APRN, case management and RN * Palliative care contact information was provided to the patient's family * Symptom management: Pain: Patient reports moderate to severe abdominal pain that began a few months ago. Pain is diffuse. Pain is currently being managed with Ultram PRN. IV morphine was added to the regimen. Decreased appetite: Patient reports a 30 pound weight loss over the past 2 months with associated nausea and abdominal pain. She states she eats a few bites and then has no appetite. CT done in the ED showed no obvious etiology for weight loss or abdominal pain. PRN Zofran is available for nausea. Megace was added to the regimen. Debility: Patient reports increased weakness in recent months that recently became severe she states she has been unable to walk for The past few days. MRI of the lumbar spine did not show any cord compression. Patient states she ambulates with a walker at home and is independent with ADLs. Physical therapy has been consulted. Patient will need rehabilitation at discharge. * Palliative care will continue to follow this patient throughout her hospitalization to establish trust, assist with symptom management and clarification of medical treatment goals. Appreciation Thank you for the opportunity to participate in the care of Jacquelyn Forbes.
--- NOTE | 2018-06-05 13:45 | XR ---
EXAM DATE: 06/05/2018 12:00 AM EDT AGE/SEX: 82 years / Female INDICATIONS: Abdominal pain & distention. CLINICAL DATA: This is the patient's subsequent encounter. Patient reports that signs and symptoms h ave been present for 4 - 6 days and indicates a pain score of 10/10. MEDICAL/SURGICAL HISTORY: Hypertension. Carcinoma, breast. Chronic renal failure. COPD Hysterec gregorio. Back sx. Appendectomy. COMPARISON: [facility], ABDOMEN 1V KUB, 06/04/2018. . FINDINGS: Moderate gaseous distention of bowel throughout. There is slightly worse than on prior exam. This ap pears to be mostly colon with nondilated small bowel loops seen over the pelvis. CONCLUSION: Worsening gaseous colonic distention. Electronically signed by: Francisco Scales MD 06/05/2018 1:44 PM EDT
[2018-06-05] MEDS ORDERED: Gadobutrol PF 7.5 MMOL/7.5 ML Vial (for RAD) IV.SIG ONE (15:38)
--- NOTE | 2018-06-05 16:02 | MR ---
EXAM DATE: 06/05/2018 2:26 PM EDT AGE/SEX: 82 years / Female INDICATIONS: Metastatic disease. CLINICAL DATA: This is the patient's initial encounter. Patient reports that signs and symptoms have been present for 1 day and indicates a pain score of 6/10. MEDICAL/SURGICAL HISTORY: Carcinoma, breast. Hypertension. Hysterectomy. Appendectomy. Back s urgery. COMPARISON: [facility], ABDOMEN 1V KUB, 06/05/2018. . TECHNIQUE: Multiplanar, multisequence MRI examination of the pelvis was performed with 6.1 ml Gada vist (gadobutrol) contrast and without contrast as a single exam dose. FINDINGS: Bowel/Mesentery: Moderate gaseous distention of the colon. Bladder: Decompressed with Gonzales catheter. Retroperitoneum: No evidence of deep pelvic adenopathy. The fat planes about the pelvic sidewalls ar e intact. Reproductive Organs: Uterus surgically absent. Vaginal cuff is unremarkable. Inguinal: Grossly unremarkable. Bony Structures: No suspicious marrow signal abnormalities.. Free Fluid: Minimal Post Contrast: No abnormal areas of enhancement seen. CONCLUSION: 1. Gaseous distention of the colon. 2. Minimal free pelvic fluid. Electronically signed by: Francisco Scales MD 06/05/2018 4:00 PM EDT
[2018-06-06] MEDS ORDERED: Bisacodyl 10 MG Supp RECTAL ONE (08:00)
--- NOTE | 2018-06-06 09:13 | P.PNIM ---
Subjective Interval history: Follow up generalized weakness, abdominal pain and ileus. Patient seen and examined, lying in bed with continued NGT, states she feels some relief with the ngt LIWS. Continued intermittent nausea. Pain is improving. Spoke to daughter extensively regarding patient's status and plan. MRI results reviewed and updated about plan. Will continue to monitor for resolution of the patient' s ileus. VSS. Keep NPO for now. Physical Exam Vital signs: Vital Signs 06/05/18 10:06 06/05/18 12:00 06/05/18 16:00 Temperature 97.1 F L 99.6 F Pulse Rate 98 H 93 H Respiratory Rate 17 20 20 Blood Pressure 119/56 L 104/52 L Pulse Oximetry 93 L 93 L 06/05/18 20:00 06/06/18 00:00 06/06/18 04:00 Temperature 99.1 F 98.1 F 98.2 F Pulse Rate 91 H 96 H 96 H Respiratory Rate 20 20 20 Blood Pressure 112/52 L 103/54 L 113/55 L Pulse Oximetry 92 L 90 L 92 L Intake & Output 06/05/18 06/06/18 06/06/18 18:59 06:59 18:59 Intake Total 1320 / 1320 260 / 260 Output Total 250 / 250 350 / 350 Balance 1070 / 1070 -90 / -90 Weight 64.9 kg Intake: IV 1200 / 1200 200 / 200 NS Inj 1,000 ML @ 42 mls/hr IV. 1000 / 1000 CONT .[id number] [facility] Rx#: [id number] Cipro 400 MG/200 ML Inj 400 mg 200 / 200 200 / 200 In 200 ml @ 200 mls/hr IV.SIG Q12H [facility] Rx#:[id number] Oral 120 / 120 60 / 60 Output: Urine 250 / 250 350 / 350 Other: Date of Last Bowel Movement 06/01/18 Narrative: GENERAL: Well-developed, well-nourished patient lying in bed with NGT in place. SKIN: Warm and dry. No rash. HEAD: Normocephalic. Atraumatic. EYES: Pupils equal and round. No scleral icterus. No injection or drainage. ENT: No nasal bleeding or discharge. Mucous membranes pink and moist. NECK: Supple. Trachea midline. CARDIOVASCULAR: Regular rate and rhythm. S1, S2 noted. No murmur appreciated. Chest pain to palpation. RESPIRATORY: No accessory muscle use. Clear to auscultation. Breath sounds equal bilaterally. GASTROINTESTINAL: Abdomen soft. Mild pain to palpation in lower quadrants. Normoactive bowel sounds x4. NGT in place. MUSCULOSKELETAL: No obvious deformities. Extremities without clubbing, cyanosis , or edema. NEUROLOGICAL: Awake and alert. No obvious cranial nerve deficits. Motor grossly within normal limits. 3/5 muscle strength in bilateral upper and lower extremities. Normal speech. PSYCHIATRIC: Appropriate mood and affect; insight and judgment normal. - Urinary Catheter Management Indwelling Urethral Catheter Cath placed during this visit: yes Reason for continuing: Acute urinary retention Insertion date: 06/02/18 Insertion time: 08:22 Straight Cath placed during this visit: yes, but has since been removed by the nurse Reason for continuing: Acute urinary retention Insertion date: 06/04/18 Insertion time: 15:00 Removal date: 06/04/18 Removal time: 02:35 Results - Labs CBC & Chem 7: 06/05/18 06:08 06/05/18 06:08 - Imaging Impressions Abdomen X-Ray 06/05/18 00:00 CONCLUSION: Worsening gaseous colonic distention. Pelvis MRI 06/05/18 00:00 CONCLUSION: 1. Gaseous distention of the colon. 2. Minimal free pelvic fluid. Assessment and Plan - Assessment (1) Intractable low back pain Code(s): M54.5 - Low back pain Status: Acute (2) Acute UTI Code(s): N39.0 - Urinary tract infection, site not specified Status: Acute (3) Acute kidney injury Code(s): N17.9 - Acute kidney failure, unspecified Status: Acute (4) Debility Code(s): R53.81 - Other malaise Status: Acute (5) Dehydration Code(s): E86.0 - Dehydration Status: Acute - Plan This is a pleasant 82-year-old female patient with: Debility, inability to walk Intractable back pain, improving -Patient states she has been unable to walk x 2 days prior to presentation. Patient's baseline is ability to walk at baseline and perform ADLs per self, uses walker at home. -MRI of lumbar spine was done did not show any cord compression. MRI of the pelvis is showing ileus. Pelvis x-ray unremarkable for fracture. -Physical therapy has been consulted, appreciate input recommendations. Ultimately will need rehab at discharge. -Pain control with Ultram as needed per pain scale. IV morphine added as well. -Supportive care. Urinary tract infection Acute on chronic kidney disease Acute urinary retention -Creatinine 1.9 on presentation, has improved with IV fluids overnight. Will continue. GFR improved to 58 today creatinine within normal. -Avoid nephrotoxins. -Continue to monitor BMP. -UA showing presence of leukocyte esterase as well as white blood cells. Urine culture showing Klebsiella. Continue on ciprofloxacin IV. -A Gonzales catheter was placed in ED, attempted removal of catheter, patient had resultant urinary retention. Consult placed to urology, appreciate input. Increase mobility. Continue Gonzales catheter for now. Abdominal pain, improving Loss of appetite Nausea and vomiting, improving -Reports of 30-pound weight loss over the past 2 months as well as chronic nausea and abdominal pain. -Abdominal/pelvis CT done in ED, and reviewed showing no obvious etiology for the weight loss of abdominal pain. -MRI of the back as above. MRI pelvis showing presence of ileus. -IV Zofran available for nausea. Megace added to the regimen. -Supportive care. Ensure hydration, continue IV fluids for now. -KUB showing mild ileus. Mildly distended. Rest bowel. NPO. Pain control. NGT to LIWS. History of hypertension: Continue to monitor BP trends. Continue home medications. History of hyperlipidemia: Continue home statin. DVT prophylaxis: SCDs. Heparin. Discharge Planning: Await clinical improvement. Patient still with abdominal pain and pubic pain as well as generalized weakness. Palliative care following.
[2018-06-06] MEDS: Senna/Docusate Sodium 8.6/50 MG Tablet PO SCH ×2 (09:30→20:11)
[2018-06-06] MEDS: Budesonide-Formoterol 160/4.5 MCG 6 GM Inhaler INH SCH ×2 (10:01→22:20)
[2018-06-06] MEDS: Tiotropium Bromide 18 MCG/ACT Inhaler INH SCH (10:02)
[2018-06-06] MEDS ORDERED: Sod Phosphate/Sod Biphosphate (Adult) Enema 133 ML Bottle RECTAL ONE (11:00)
[2018-06-06] MEDS: Anastrozole 1 MG Tablet PO SCH (12:25)
[2018-06-06] MEDS: Morphine Sulfate Inj 2 MG/ML Vial IV.PUSH PRN (13:32)
[2018-06-06] MEDS: Ciprofloxacin 400 MG/200 ML 400 MG/200 ML PIGGYBACK IV.SIG SCH ×2 (13:32→22:20)
[2018-06-06] MEDS: dilTIAZem CD 120 MG Capsule PO SCH (14:39)
--- NOTE | 2018-06-06 15:37 | P.PNPAL ---
Reason for Visit Reason for visit: a. To assist with evaluation and management of symptoms including: pain, debility, decreased appetite b. To assist medical decision maker(s) with: better understanding of current medical conditions; weighing benefits/burdens of medical treatment options; making medical treatment decisions. Subjective Subjective/Interval History: Follow up visit for symptom management of pain, debility and decreased appetite as well as clarification of medical treatment goals. Patient seen and assessed lying in bed. MRI of the pelvis on 06/05/18 showed gaseous distention of the colon;minimal free fluid. Patient reports some relief secondary to NGT to LIWS. She continues to have some intermittent nausea; PRN Zofran is available for nausea. Patient reports abdominal pain has decreased somewhat. Will continue to monitor for resolution of the patient's ileus; patient remains NPO for now. Physical therapy continues to follow reporting patient was able to participate more today. Daughter was present, educated on assisting patient with gentle ROM in bilateral lower extremities. Recommendations for rehab at discharge. Advance Directives Advance Directives Date on File: 08/25/13 Health Care Surrogate Name and Number: Marybel Lares (daughter) Objective Vital Signs: Vital Signs 06/05/18 16:00 06/05/18 20:00 06/06/18 00:00 Temperature 99.6 F 99.1 F 98.1 F Pulse Rate 93 H 91 H 96 H Respiratory Rate 20 20 20 Blood Pressure 104/52 L 112/52 L 103/54 L Pulse Oximetry 93 L 92 L 90 L 06/06/18 04:00 06/06/18 08:00 06/06/18 12:00 Temperature 98.2 F 97.1 F L 97.0 F L Pulse Rate 96 H 92 H 87 Respiratory Rate 20 19 20 Blood Pressure 113/55 L 118/56 L 110/51 L Pulse Oximetry 92 L 92 L 92 L Intake & Output 06/05/18 06/06/18 06/06/18 18:59 06:59 18:59 Intake Total 1320 / 1320 260 / 260 200 / 200 Output Total 250 / 250 350 / 350 Balance 1070 / 1070 -90 / -90 200 / 200 Weight 64.9 kg Intake: IV 1200 / 1200 200 / 200 200 / 200 NS Inj 1,000 ML @ 42 mls/hr IV. 1000 / 1000 CONT .[id number] [facility] Rx#: [id number] Cipro 400 MG/200 ML Inj 400 mg 200 / 200 200 / 200 200 / 200 In 200 ml @ 200 mls/hr IV.SIG Q12H [facility] Rx#:[id number] Oral 120 / 120 60 / 60 Output: Urine 250 / 250 350 / 350 Other: Date of Last Bowel Movement 06/01/18 Physical Exam: CONSTITUTIONAL/GENERAL: This is a frail, elderly female patient experiencing moderate abdominal pain TUBES/LINES/DRAINS: PIVm, Gonzales catheter SKIN: No jaundice, rashes, or lesions. No wounds seen anteriorly. Skin temperature appropriate. Not diaphoretic. HEAD: Atraumatic. Normocephalic. EYES: Pupils equal and round and reactive. Extraocular motions intact. No scleral icterus. No injection or drainage. Fundi not examined. ENT: Hearing grossly normal. Nose without bleeding or purulent drainage. NECK: Trachea midline. Supple, nontender. No palpable thyroid enlargement or nodularity. CARDIOVASCULAR: Regular rate and rhythm without murmurs, gallops, or rubs. No JVD. Peripheral pulses symmetric. RESPIRATORY/CHEST: Symmetric, unlabored respirations. Clear to auscultation. Breath sounds equal bilaterally. No wheezes, rales, or rhonchi. GASTROINTESTINAL: Abdomen distended, tender to palpation. NGT to LIWS GENITOURINARY: Without palpable bladder distension. Gonzales catheter in place. MUSCULOSKELETAL: Extremities without clubbing, cyanosis, or edema. No mottling or clubbing. LYMPHATICS: No palpable cervical or supraclavicular adenopathy. NEUROLOGICAL: Awake and alert. Lethargic. Answers questions;follows simple 1 step commands. PSYCHIATRIC: No obvious anxiety/depression. No apparent hallucinations or other psychotic thought process. Diagnostic Tests Laboratory: Laboratory Results - last 72 hr 06/05/18 06/05/18 06:08 06:08 CBC w Diff Auto diff final WBC 9.0 RBC 3.33 L Hgb 10.3 L Hct 31.1 L MCV 93.6 MCH 30.9 MCHC 33.1 RDW 14.8 Plt Count 149 L MPV 9.9 Neut % (Auto) 84.9 H Lymph % (Auto) 5.0 L Ritchie % (Auto) 9.0 H Eos % (Auto) 0.5 Baso % (Auto) 0.6 Neut # (Auto) 7.7 Lymph # (Auto) 0.4 L Ritchie # (Auto) 0.8 Eos # (Auto) 0.0 Baso # (Auto) 0.1 WBC Differential . Differential Comment . Sodium 138 Potassium 3.7 Chloride 107 Carbon Dioxide 23.0 Anion Gap 8 BUN 12 Creatinine 0.92 Estimated GFR 58 L Random Glucose 97 Calcium 7.6 L Result Diagrams: 06/09/18 05:53 06/09/18 05:53 Microbiology: Microbiology 06/02/18 08:30 Urine Culture - Final Catheterized Urine Klebsiella pneumoniae Imaging: Abdomen/Pelvis CT 06/02/18 08:10 CONCLUSION: 1. No acute CT abnormality in the abdomen or pelvis. 2. Patient is status post hysterectomy with no significant adnexal mass. 3. 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 Lumbar Spine MRI 06/02/18 09:45 CONCLUSION: 1. No evidence for acute lumbar spine compression fracture. 2. Mild multilevel degenerative spondylosis of the lumbar spine without significant central canal or neural foraminal stenosis. 3. Please see above for detailed description of each level. Pelvis X-Ray 06/04/18 00:00 CONCLUSION: No acute bony abnormality. Osteopenia. Diffuse ileus. Abdomen X-Ray 06/05/18 00:00 CONCLUSION: Worsening gaseous colonic distention. Pelvis MRI 06/05/18 00:00 CONCLUSION: 1. Gaseous distention of the colon. 2. Minimal free pelvic fluid. Procedures: 06/06/2018: NGT to [facility] Assessment and Plan - Disease Oriented Problem List (1) Acute UTI (2) Dehydration (3) [id number] kidney injury - Symptom Scale (1) Pain 0-10 Scale: Unable to quantify (2) Debility 0-10 Scale: Unable to quantify (3) Decreased appetite 0-10 Scale: Unable to quantify Pertinent Non-Medical Issues: Psychosocial: Patient is originally from [place]. She and her family moved to [place] in the mid 1970s. She is a retired business intermodal owner operator truck driver. She is . She had 4 adult children apparently only 2 children are living. She has had a significant other for approximately 20 years; his name is Luis. Spiritual: Islam salvador Legal: Patient completed a living will in 2013. Her daughter, Marybel, is designated as the healthcare surrogate decision-maker. Ethical issues impacting care: No known ethical issues impacting care at this time. Important Contacts: Luis Heart, significant other: [phone] (H) or [phone] (W) Marybel Lares, daughter: [phone] Prognosis: Patient is an 82-year-old female who has experienced an acute decline in recent months as evidenced by increased weakness, poor appetite and a 30 pound weight loss. She currently hospitalized with acute UTI, acute kidney injury and dehydration. She has severe abdominal pain, etiology unknown. Additional information is necessary to determine patient's overall prognosis, however given her poor performance status he will likely need rehab at discharge. Code Status: Full Code Plan: * FULL CODE * Decision making: Patient has designated her daughter, Marybel as the healthcare surrogate decision-maker. * Goals are aggressive at this time. Patient's primary goal is symptom management of pain and then rehab to become stronger. * Discussed patient with Bonita Becker APRN * Symptom management: Pain: Patient admitted with severe abdominal pain that began a few months ago. Pain is diffuse. PRN Ultram, Toradol and IV Morphine available. MRI of the pelvis on 06/05/18 showed gaseous distention of the colon; minimal free fluid. Patient reports some relief secondary to NGT to LIWS. Patient reports pain has decreased somewhat Decreased appetite: Patient reports a 30 pound weight loss over the past 2 months with associated nausea and abdominal pain. She states she eats a few bites and then has no appetite. CT done in the ED showed no obvious etiology for weight loss or abdominal pain. She continues to have intermittent nausea; PRN Zofran is available. Patient is NPO for now. Debility: Patient reports increased weakness in recent months that recently became severe she states she has been unable to walk for The past few days. MRI of the lumbar spine did not show any cord compression. Patient states she ambulates with a walker at home and is independent with ADLs. Physical therapy continues to follow reporting patient was able to participate more today. Daughter was present, educated on assisting patient with gentle ROM in bilateral lower extremities. Patient will need rehabilitation at discharge. * Palliative care will continue to follow this patient throughout her hospitalization to establish trust, assist with symptom management and clarification of medical treatment goals. Attestation Attestation: To help prompt me to consider important information that might be impacting today's encounter and assessment, information from prior notes written by myself or my colleagues may have been "brought forward" into today's note. My signature on this note, however, is an attestation that I personally performed the exam, history, and/or decision-making noted today, and, unless otherwise indicated, the interactions with patient, family, and staff as well as the review of records all occurred today. I also attest that the listed assessment and stated plan reflect my best clinical judgment today based on the combination of historical information, prior notes, and today's exam/ interactions. When time spent is documented, it refers only to time spent today by the signer, or if indicated, combined time spent today by collaborating physician/nurse practitioner.
[2018-06-06] MEDS ORDERED: Morphine Sulfate Inj 2 MG/ML Vial IV.PUSH PRN (16:39)
[2018-06-06] MEDS: Ketorolac Inj 30 MG/ML (IVP) Vial IV.PUSH PRN (17:01)
[2018-06-06] MEDS: Sod Chloride 0.9% Inj 1,000 ML IV.CONT SCH (18:09)
[2018-06-07] MEDS: Sod Chloride 0.9% Inj 1,000 ML IV.CONT SCH ×3 (05:30→22:11)
[2018-06-07 07:59] LABS: Potassium 3.4 meq/L (3.5-5.1)
[2018-06-07 08:02] LABS: Calcium 7.4 mg/dL (8.5-10.1); Carbon Dioxide 22.9 meq/L (21.0-32.0)
[2018-06-07 08:35] LABS: Total Protein 4.6 g/dL (6.4-8.2)
[2018-06-07] MEDS: dilTIAZem CD 120 MG Capsule PO SCH (08:48)
[2018-06-07] MEDS: Anastrozole 1 MG Tablet PO SCH (08:48)
[2018-06-07] MEDS: Senna/Docusate Sodium 8.6/50 MG Tablet PO SCH ×2 (08:48→20:43)
--- NOTE | 2018-06-07 09:09 | XR ---
EXAM DATE: 06/07/2018 12:00 AM EDT AGE/SEX: 82 years / Female INDICATIONS: Abdominal pain. Follow-up colonic distention. CLINICAL DATA: This is the patient's subsequent encounter. Patient reports that signs and symptoms h ave been present for 3 days and indicates a pain score of 10/10. MEDICAL/SURGICAL HISTORY: . Hypertension. Carcinoma, breast. Chronic renal failure. COPD . Hysterectomy. Back sx. Appendectomy. COMPARISON: [facility], ABDOMEN 1V KUB, 06/05/2018. . FINDINGS: 2 AP portable views of the chest interval placement of a nasogastric tube with the tip in the proxim al stomach. The side port is located near the gastroesophageal junction. Moderate gaseous distention of the colon is again noted which appears slightly more prominent. The transverse colon now measures up to approximately 9.4 cm in greatest diameter compared to 8.3 cm. There are multiple loops of nondi lated air-containing small bowel again noted. There is no evidence of free air on this supine study. The bony structures are stable and intact. CONCLUSION: 1. Interval placement of nasogastric tube with the tip in the proximal stomach. The side port appear s located at the level of gastroesophageal junction and could be advanced. 2. Mild increasing gaseous distention in the colon. Electronically signed by: Facundo Vann MD 06/07/2018 9:07 AM EDT
--- NOTE | 2018-06-07 09:37 | P.PNIM ---
Subjective Interval history: Follow-up generalized weakness, abdominal pain, ileus and UTI. Patient seen and examined, lying in bed awake and alert, there is some improvement today in pain, not as tender to bilateral lower quadrants. NG tube continued. Abdominal x-ray worsened at this morning. Gastroenterology consulted and awaiting input. Patient does state pain relief with the Toradol. Will continue. Still complained of nausea. Reports of 2 bowel movements overnight. Physical Exam Vital signs: Vital Signs 06/06/18 12:00 06/06/18 12:35 06/06/18 16:00 Temperature 97.0 F L 98.1 F Pulse Rate 87 97 H 92 H Respiratory Rate 20 20 Blood Pressure 110/51 L 114/54 L Pulse Oximetry 92 L 92 L 06/06/18 20:00 06/07/18 00:00 06/07/18 04:00 Temperature 97.2 F L 96.7 F L 96.6 F L Pulse Rate 81 82 87 Respiratory Rate 18 18 18 Blood Pressure 98/52 L 105/52 L 103/51 L Pulse Oximetry 93 L 92 L 92 L Intake & Output 06/06/18 06/07/18 06/07/18 18:59 06:59 18:59 Intake Total 1200 / 1200 1200 / 1200 Output Total 250 / 250 150 / 150 100 / 100 Balance 950 / 950 1050 / 1050 -100 / -100 Weight 64.7 kg Intake: IV 1200 / 1200 1200 / 1200 NS Inj 1,000 ML @ 84 mls/hr IV. 1000 / 1000 1000 / 1000 CONT .[id number] [facility] Rx#: [id number] Cipro 400 MG/200 ML Inj 400 mg 200 / 200 200 / 200 In 200 ml @ 200 mls/hr IV.SIG Q12H [facility] Rx#:[id number] Oral 0 / 0 Output: Urine 150 / 150 Urine Amount (Catheter) 250 / 250 Indwelling Urethral Catheter 250 / 250 Gastric Drainage 100 / 100 Left Nare Nasogastric Tube 100 / 100 Other: Date of Last Bowel Movement 06/01/18 # Bowel Movements 2 Narrative: GENERAL: Well-developed, well-nourished patient lying in bed with NGT in place. SKIN: Warm and dry. No rash. HEAD: Normocephalic. Atraumatic. EYES: Pupils equal and round. No scleral icterus. No injection or drainage. ENT: No nasal bleeding or discharge. Mucous membranes pink and moist. NECK: Supple. Trachea midline. CARDIOVASCULAR: Regular rate and rhythm. S1, S2 noted. No murmur appreciated. Chest pain to palpation. RESPIRATORY: No accessory muscle use. Clear to auscultation. Breath sounds equal bilaterally. GASTROINTESTINAL: Abdomen soft, round. Mild pain to palpation in lower quadrants. Normoactive bowel sounds x4. NGT in place. MUSCULOSKELETAL: No obvious deformities. Extremities without clubbing, cyanosis , or edema. NEUROLOGICAL: Awake and alert. No obvious cranial nerve deficits. Motor grossly within normal limits. 3/5 muscle strength in bilateral upper and lower extremities. Normal speech. PSYCHIATRIC: Appropriate mood and affect; insight and judgment normal. - Urinary Catheter Management Indwelling Urethral Catheter Cath placed during this visit: yes Reason for continuing: Acute urinary retention Insertion date: 06/02/18 Insertion time: 08:22 Straight Cath placed during this visit: yes, but has since been removed by the nurse Reason for continuing: Acute urinary retention Insertion date: 06/04/18 Insertion time: 15:00 Removal date: 06/04/18 Removal time: 02:35 Results - Labs CBC & Chem 7: 06/05/18 06:08 06/07/18 06:55 Laboratory Results - last 24 hr 06/07/18 06:55 Sodium 139 Potassium 3.4 L Chloride 107 Carbon Dioxide 22.9 Anion Gap 9 BUN 19 H Creatinine 1.10 H Estimated GFR 47 L Random Glucose 80 Calcium 7.4 L* Prot Corrected Calcium 8.8 Total Protein 4.6 L D - Imaging Impressions Abdomen X-Ray 06/07/18 00:00 CONCLUSION: 1. Interval placement of nasogastric tube with the tip in the proximal stomach. The side port appears located at the level of gastroesophageal junction and could be advanced. 2. Mild increasing gaseous distention in the colon. Assessment and Plan - Assessment (1) Intractable low back pain Code(s): M54.5 - Low back pain Status: Acute (2) Acute UTI Code(s): N39.0 - Urinary tract infection, site not specified Status: Acute (3) Acute kidney injury Code(s): N17.9 - Acute kidney failure, unspecified Status: Acute (4) Debility Code(s): R53.81 - Other malaise Status: Acute (5) Dehydration Code(s): E86.0 - Dehydration Status: Acute - Plan This is a pleasant 82-year-old female patient with: Debility, inability to walk Generalized weakness Intractable back pain, improving -Patient states she has been unable to walk x 2 days prior to presentation. Patient's baseline is ability to walk at baseline and perform ADLs per self, uses walker at home. -MRI of lumbar spine was done did not show any cord compression. MRI of the pelvis is showing ileus, no acute findings to explain weakness. Pelvis x-ray unremarkable for fracture. -Physical therapy has been consulted, appreciate input recommendations. Ultimately will need rehab at discharge. -Pain control with Ultram as needed per pain scale. IV morphine added as well. -Supportive care. Urinary tract infection Acute on chronic kidney disease, improving Acute urinary retention -Creatinine 1.9 on presentation, has improved with IV fluids overnight. Will continue. GFR improved to 58 today creatinine within normal. -Avoid nephrotoxins. -Continue to monitor BMP. -UA showing presence of leukocyte esterase as well as white blood cells. Urine culture showing Klebsiella. Continue on ciprofloxacin IV. -A Gonzales catheter was placed in ED, attempted removal of catheter, patient had resultant urinary retention. -Consult placed to urology, appreciate input. Recommendations to increase mobility as tolerated. Continue Gonzales catheter for now. Bowel training when mobility improved. Abdominal pain, improving Nausea and vomiting, improving -Reports of 30-pound weight loss over the past 2 months as well as chronic nausea and abdominal pain. -Abdominal/pelvis CT done in ED, and reviewed showing no obvious etiology for the weight loss of abdominal pain. -MRI of the back as above. MRI pelvis showing presence of ileus. -IV Zofran available for nausea. Megace added to the regimen. -Supportive care. Ensure hydration, continue IV fluids for now. -KUB showing mild ileus, worsening imaging today despite NGT placement. Mildly distended. Rest bowel. NPO. Pain control. NGT to LIWS. -Bowel regimen, reports of 2 BMs yesterday. Active bowel sounds. -Add Reglan. -Gastroenterology consulted and spoke to personally, input and recommendations pending. Will see her today. History of hypertension: Continue to monitor BP trends. Continue home medications. History of hyperlipidemia: Continue home statin. DVT prophylaxis: SCDs. Heparin. Discharge Planning: Await clinical improvement. Patient still with ileus as well as generalized weakness. GI consulted. Palliative care following.
[2018-06-07] MEDS: Tiotropium Bromide 18 MCG/ACT Inhaler INH SCH (10:26)
[2018-06-07] MEDS: Budesonide-Formoterol 160/4.5 MCG 6 GM Inhaler INH SCH ×2 (10:26→22:11)
[2018-06-07] MEDS: Ciprofloxacin 400 MG/200 ML 400 MG/200 ML PIGGYBACK IV.SIG SCH ×2 (10:26→22:11)
[2018-06-07] MEDS: Ketorolac Inj 30 MG/ML (IVP) Vial IV.PUSH PRN (10:27)
--- NOTE | 2018-06-08 02:18 | MB ---
cc: Joaquina Livingston MD DATE: 06/07/2018 REASON FOR REFERRAL: Abdominal distention, abnormal imaging. Thank you for the consultation. HISTORY OF PRESENT ILLNESS: An 82-year-old lady with multiple medical problems. The patient has breast cancer, hypertension, COPD. The patient came to the emergency room with abdominal pain, back pain. The patient stated that the abdominal pain has been going on for a few days and the back pain also more chronic than that. The patient was found to have a UTI and dehydration. The patient started having distention of her abdomen a little bit. Imaging showed possible distention of her colon, consistent with ileus. The patient had an NG tube placed with minimal output, about 200 mL in the last 18 hours according to the patient and her family. The patient is stating that she is having a hard time passing gas or stool and she is having more generalized abdominal pain with some nausea. REVIEW OF SYSTEMS: All 12-points negative except as in HPI. PAST MEDICAL HISTORY: Significant for: 1. Back pain. 2. Colon polyps. 3. Breast cancer. 4. COPD. 5. Glaucoma. 6. Hysterectomy. 7. Hypertension. 8. Radiation therapy. 9. Hyperlipidemia. 10. Osteoporosis. 11. Appendectomy. 12. Back surgery. SOCIAL HISTORY: Negative for tobacco at this point. She used to smoke in the past. Occasional alcohol use. No drugs. No travel. FAMILY HISTORY: Noncontributory. MEDICATIONS: Reviewed in the chart. ALLERGIES: PENICILLIN. PHYSICAL EXAMINATION: GENERAL: Alert, oriented, in no acute distress at this time. VITAL SIGNS: Stable. No fever. HEENT: Pupils are reactive to light. NECK: Supple. SKIN: Dry and warm. CHEST: Clear to auscultation and percussion at this time. CARDIAC: Regular rate and rhythm. No murmur or gallops. ABDOMEN: Soft, mild tenderness. The patient has an NG tube. Reduced bowel sounds. NEUROLOGIC: Intact, alert, oriented. Muscle strength symmetrical and appropriate for age. PSYCHOLOGIC: Appropriate. LABORATORY DATA: White count 9.0, hemoglobin 10.3, platelets 149. Liver function test normal. Lipase 265 a few days ago. Albumin 2.7, BUN 19, creatinine 1.0. IMAGING: Abdominal x-ray showed gaseous distention of the colon, slightly worse from the previous exam. No dilation of small bowel. The patient had CT scan on admission. This showed no acute CT abnormality. 1. Status post hysterectomy. 2. Extensive findings including hepatic steatosis. 3. Renal cyst. 4. Focal ectasia. 5. Diverticulosis. ASSESSMENT AND PLAN: An 82-year-old lady with a history of breast cancer. The patient came complaining of abdominal pain. She had a urinary tract infection. The patient is also on pain medication, could be causing ileus. I advised to try to reduce the pain medication as much as possible, continue treatment for urinary tract infection, continue NG tube. If symptoms persist, we might need to repeat CT scan and maybe place a rectal tube. The patient was encouraged to try to move around to try to promote bowel movements and the patient verbalized understanding. MD BERTIN Childs/merry , 10:44 PM , 10:55 PM
[2018-06-08] MEDS: Sod Chloride 0.9% Inj 1,000 ML IV.CONT SCH ×2 (05:49→10:05)
[2018-06-08] MEDS ORDERED: Albumin Human 25% Inj 100 ML IV.SIG ONE (07:33)
[2018-06-08 08:03] LABS: Baso % (Auto) 0.5 % (0.0-2.0); Eos # (Auto) 0.4 th/mm3 (0.0-0.4); Eos % (Auto) 7.5 % (0.0-4.0); Hematocrit 31.2 % (35.0-46.0); Hemoglobin 10.7 gm/dL (11.6-15.3); Lymph # (Auto) 0.4 th/mm3 (1.0-4.8); Lymph % (Auto) 8.2 % (9.0-44.0); Mean Corpuscular HGB Conc 34.3 % (32.0-36.0); Mean Corpuscular Hemoglobin 31.4 pg (27.0-34.0); Mean Corpuscular Volume 91.5 fL (80.0-100.0); Mean Platelet Volume 9.6 fL (7.0-11.0); Mono # (Auto) 0.8 th/mm3 (0.0-0.9); Mono % (Auto) 15.5 % (0.0-8.0); Neut # (Auto) 3.7 th/mm3 (1.8-7.7); Neut % (Auto) 68.3 % (16.0-70.0); Platelet Count 225 th/mm3 (150-450); Red Blood Count 3.41 mil/mm3 (4.00-5.30); Red Cell Distribution Width 15.9 % (11.6-17.2); White Blood Count 5.3 th/mm3 (4.0-11.0)
[2018-06-08 08:13] LABS: Potassium 3.2 meq/L (3.5-5.1)
[2018-06-08 08:20] LABS: Calcium 7.1 mg/dL (8.5-10.1); Carbon Dioxide 18.8 meq/L (21.0-32.0)
[2018-06-08 08:46] LABS: Total Protein 4.9 g/dL (6.4-8.2)
--- NOTE | 2018-06-08 08:53 | P.PNIM ---
Subjective Interval history: Follow-up generalized weakness, back pain, UTI and ileus. Patient seen and examined, lying in bed with continued NG tube. Pain is improved, she does express discouragement regarding continued lack of improvement with ileus. She is not passing gas. Bowel movement yesterday. Continued nausea. GI consulted and appreciated input and recommendations. Continue supportive care. Physical Exam Vital signs: Vital Signs 06/07/18 12:50 06/07/18 16:00 06/07/18 20:00 Temperature 96 F L 98.1 F 97.2 F L Pulse Rate 92 H 94 H 80 Respiratory Rate 18 Blood Pressure 113/53 L 116/56 L 105/52 L Pulse Oximetry 94 L 91 L 92 L 06/08/18 00:00 06/08/18 04:00 06/08/18 07:53 Temperature 97.2 F L 97.7 F Pulse Rate 88 91 H Respiratory Rate 18 18 Blood Pressure 106/53 L 117/54 L Pulse Oximetry 91 L 91 L 93 L Intake & Output 06/07/18 06/08/18 06/08/18 18:59 06:59 18:59 Intake Total 1440 / 1440 1200 / 1200 Output Total 250 / 250 150 / 150 Balance 1190 / 1190 1050 / 1050 Weight 64.2 kg Intake: IV 1200 / 1200 1200 / 1200 NS Inj 1,000 ML @ 84 mls/hr IV. 1000 / 1000 1000 / 1000 CONT .[id number] [facility] Rx#: [id number] Cipro 400 MG/200 ML Inj 400 mg 200 / 200 200 / 200 In 200 ml @ 200 mls/hr IV.SIG Q12H [facility] Rx#:[id number] Oral 240 / 240 0 / 0 Output: Urine 150 / 150 150 / 150 Urine/Stool Mix 0 / 0 Gastric Drainage 100 / 100 Left Nare Nasogastric Tube 100 / 100 Other: # Voids 1 Date of Last Bowel Movement 06/07/18 06/07/18 Narrative: GENERAL: Well-developed, well-nourished patient lying in bed with NGT in place. SKIN: Warm and dry. No rash. HEAD: Normocephalic. Atraumatic. EYES: Pupils equal and round. No scleral icterus. No injection or drainage. ENT: No nasal bleeding or discharge. Mucous membranes pink and moist. NECK: Supple. Trachea midline. CARDIOVASCULAR: Regular rate and rhythm. S1, S2 noted. No murmur appreciated. Chest pain to palpation. RESPIRATORY: No accessory muscle use. Clear to auscultation. Breath sounds equal bilaterally. GASTROINTESTINAL: Abdomen soft, round. No tenderness today. Normoactive bowel sounds x4. NGT in place. MUSCULOSKELETAL: No obvious deformities. Extremities without clubbing, cyanosis , or edema. NEUROLOGICAL: Awake and alert. No obvious cranial nerve deficits. Motor grossly within normal limits. 4/5 muscle strength in bilateral upper and lower extremities. Normal speech. PSYCHIATRIC: Appropriate mood and affect; insight and judgment normal. - Urinary Catheter Management Indwelling Urethral Catheter Cath placed during this visit: yes Reason for continuing: Acute urinary retention Insertion date: 06/02/18 Insertion time: 08:22 Straight Cath placed during this visit: yes, but has since been removed by the nurse Reason for continuing: Acute urinary retention Insertion date: 06/04/18 Insertion time: 15:00 Removal date: 06/04/18 Removal time: 02:35 Results - Labs CBC & Chem 7: 06/08/18 06:55 06/08/18 06:55 Laboratory Results - last 24 hr 06/08/18 06/08/18 06:55 06:55 CBC w Diff Auto diff final WBC 5.3 RBC 3.41 L Hgb 10.7 L Hct 31.2 L MCV 91.5 MCH 31.4 MCHC 34.3 RDW 15.9 Plt Count 225 D MPV 9.6 Neut % (Auto) 68.3 Lymph % (Auto) 8.2 L [place] % (Auto) 15.5 H Eos % (Auto) 7.5 H Baso % (Auto) 0.5 Neut # (Auto) 3.7 Lymph # (Auto) 0.4 L [place] # (Auto) 0.8 Eos # (Auto) 0.4 Baso # (Auto) 0.0 WBC Differential . Differential Comment . Sodium 144 Potassium 3.2 L Chloride 110 H Carbon Dioxide 18.8 L Anion Gap 15 BUN 21 H Creatinine 1.30 H Estimated GFR 39 L Random Glucose 59 L Calcium 7.1 L* Prot Corrected Calcium 8.3 L Total Protein 4.9 L - Imaging Impressions Abdomen X-Ray 06/07/18 00:00 CONCLUSION: 1. Interval placement of nasogastric tube with the tip in the proximal stomach. The side port appears located at the level of gastroesophageal junction and could be advanced. 2. Mild increasing gaseous distention in the colon. Assessment and Plan - Assessment (1) Intractable low back pain Code(s): M54.5 - Low back pain Status: Acute (2) Acute UTI Code(s): N39.0 - Urinary tract infection, site not specified Status: Acute (3) Acute kidney injury Code(s): N17.9 - Acute kidney failure, unspecified Status: Acute (4) Debility Code(s): R53.81 - Other malaise Status: Acute (5) Dehydration Code(s): E86.0 - Dehydration Status: Acute - Plan This is a pleasant 82-year-old female patient with: Debility, inability to walk Generalized weakness Intractable back pain, improving -Patient states she has been unable to walk x 2 days prior to presentation. Patient's baseline is ability to walk at baseline and perform ADLs per self, uses walker at home. -MRI of lumbar spine was done did not show any cord compression. MRI of the pelvis is showing ileus, no acute findings to explain weakness. Pelvis x-ray unremarkable for fracture. -Physical therapy has been consulted, appreciate input recommendations. Ultimately will need rehab at discharge. -Pain control with Ultram as needed per pain scale. IV morphine added as well. Pain is more controlled today. -Supportive care. Urinary tract infection Acute on chronic kidney disease, improving Acute urinary retention -Creatinine 1.9 on presentation, has improved overall although is not trending up. We will continue to monitor. -Avoid nephrotoxins. -Continue to monitor BMP. -UA showing presence of leukocyte esterase as well as white blood cells. Urine culture showing Klebsiella. Continue on ciprofloxacin IV. -A Gonzales catheter was placed in ED, attempted removal of catheter, patient had resultant urinary retention. -Consult placed to urology, appreciate input. Recommendations to increase mobility as tolerated. Continue Gonzales catheter for now. Bowel training when mobility improved. Abdominal pain, improving Nausea and vomiting, improving -Reports of 30-pound weight loss over the past 2 months as well as chronic nausea and abdominal pain. -Abdominal/pelvis CT done in ED, and reviewed showing no obvious etiology for the weight loss of abdominal pain. -MRI of the back as above. MRI pelvis showing presence of ileus. -IV Zofran available for nausea. Megace added to the regimen. -Supportive care. Ensure hydration, continue IV fluids for now. -KUB showing ileus. Rest bowel. NPO. Pain control with NSAIDs, limit narcotics. NGT to LIWS. -Bowel regimen, reports of BM yesterday. Active bowel sounds. -Continue Reglan. -Gastroenterology consulted and spoke to personally, input and recommendations appreciated. History of hypertension: Continue to monitor BP trends. Continue home medications. History of hyperlipidemia: Continue home statin. DVT prophylaxis: SCDs. Heparin. Discharge Planning: Await clinical improvement. Patient still with ileus as well as generalized weakness. GI consulted. Palliative care following.
[2018-06-08] MEDS: Tiotropium Bromide 18 MCG/ACT Inhaler INH SCH (09:57)
[2018-06-08] MEDS: Ketorolac Inj 30 MG/ML (IVP) Vial IV.PUSH PRN ×2 (09:58→17:16)
[2018-06-08] MEDS: Senna/Docusate Sodium 8.6/50 MG Tablet PO SCH ×2 (10:01→21:15)
[2018-06-08] MEDS: dilTIAZem CD 120 MG Capsule PO SCH (10:01)
[2018-06-08] MEDS: Anastrozole 1 MG Tablet PO SCH (10:01)
[2018-06-08] MEDS: Budesonide-Formoterol 160/4.5 MCG 6 GM Inhaler INH SCH ×2 (10:03→21:13)
[2018-06-08] MEDS: Ciprofloxacin 400 MG/200 ML 400 MG/200 ML PIGGYBACK IV.SIG SCH (10:16)
--- NOTE | 2018-06-08 11:06 | P.PNGI ---
Subjective Interval history: Patient still laying in bed, NG tube in place with minimal output, still complaining of abdominal distention and mild discomfort, not passing gas, little bit frustrated with that Physical Exam Vital signs: Vital Signs 06/07/18 12:50 06/07/18 16:00 06/07/18 20:00 Temperature 96 F L 98.1 F 97.2 F L Pulse Rate 92 H 94 H 80 Respiratory Rate 20 20 18 Blood Pressure 113/53 L 116/56 L 105/52 L Pulse Oximetry 94 L 91 L 92 L 06/08/18 00:00 06/08/18 04:00 06/08/18 07:53 Temperature 97.2 F L 97.7 F Pulse Rate 88 91 H Respiratory Rate 18 18 Blood Pressure 106/53 L 117/54 L Pulse Oximetry 91 L 91 L 93 L 06/08/18 08:00 Temperature 97.6 F Pulse Rate 97 H Respiratory Rate 20 Blood Pressure 120/58 L Pulse Oximetry 95 Intake & Output 06/07/18 06/08/18 06/08/18 18:59 06:59 18:59 Intake Total 1440 / 1440 1200 / 1200 1000 / 1000 Output Total 250 / 250 150 / 150 Balance 1190 / 1190 1050 / 1050 1000 / 1000 Weight 64.2 kg Intake: IV 1200 / 1200 1200 / 1200 1000 / 1000 NS Inj 1,000 ML @ 100 mls/hr IV 1000 / 1000 1000 / 1000 1000 / 1000 .CONT .Q10H [facility] Rx#:[id number] Cipro 400 MG/200 ML Inj 400 mg 200 / 200 200 / 200 In 200 ml @ 200 mls/hr IV.SIG Q12H [facility] Rx#:[id number] Oral 240 / 240 0 / 0 Output: Urine 150 / 150 150 / 150 Urine/Stool Mix 0 / 0 Gastric Drainage 100 / 100 Left Nare Nasogastric Tube 100 / 100 Other: # Voids 1 Date of Last Bowel Movement 06/07/18 06/07/18 - Constitutional no acute distress - Routine HEENT Exam Head: Present: normocephalic Eye: Present: EOMI, PERRL ENT: Present: mucous membranes moist - Routine Neck Exam Present: supple, full ROM - Routine Respiratory Exam Present: CTA bilaterally - Routine Cardiovascular Exam Present: RRR, S1, S2 - Routine Abdominal Exam Present: soft, tenderness, distended (Decrease to absent bowel movement and sound) - Urinary Catheter Management Indwelling Urethral Catheter Cath placed during this visit: yes Reason for continuing: Acute urinary retention Insertion date: 06/02/18 Insertion time: 08:22 Straight Cath placed during this visit: yes, but has since been removed by the nurse Reason for continuing: Acute urinary retention Insertion date: 06/04/18 Insertion time: 15:00 Removal date: 06/04/18 Removal time: 02:35 Results - Labs CBC & Chem 7: 06/08/18 06:55 06/08/18 06:55 Laboratory Results - last 24 hr 06/08/18 06/08/18 06:55 06:55 CBC w Diff Auto diff final WBC 5.3 RBC 3.41 L Hgb 10.7 L Hct 31.2 L MCV 91.5 MCH 31.4 MCHC 34.3 RDW 15.9 Plt Count 225 D MPV 9.6 Neut % (Auto) 68.3 Lymph % (Auto) 8.2 L [place] % (Auto) 15.5 H Eos % (Auto) 7.5 H Baso % (Auto) 0.5 Neut # (Auto) 3.7 Lymph # (Auto) 0.4 L [place] # (Auto) 0.8 Eos # (Auto) 0.4 Baso # (Auto) 0.0 WBC Differential . Differential Comment . Sodium 144 Potassium 3.2 L Chloride 110 H Carbon Dioxide 18.8 L Anion Gap 15 BUN 21 H Creatinine 1.30 H Estimated GFR 39 L Random Glucose 59 L Calcium 7.1 L* Prot Corrected Calcium 8.3 L Total Protein 4.9 L Assessment and Plan - Plan Patient is 82-year-old lady with breast cancer patient has ileus most likely related to pain medication, still no bowel movement, no gas, we will encourage patient to move around, PT is going to come and help her, we can give her Relistor injection if not better We will check KUB in the morning
[2018-06-08] MEDS: Ciprofloxacin 250 MG Tablet PO SCH (21:15)
[2018-06-09 06:57] LABS: Baso % (Auto) 0.4 % (0.0-2.0); Eos # (Auto) 0.4 th/mm3 (0.0-0.4); Eos % (Auto) 7.8 % (0.0-4.0); Hematocrit 26.2 % (35.0-46.0); Hemoglobin 9.2 gm/dL (11.6-15.3); Lymph # (Auto) 0.5 th/mm3 (1.0-4.8); Lymph % (Auto) 8.2 % (9.0-44.0); Mean Corpuscular Hemoglobin 31.8 pg (27.0-34.0); Mean Corpuscular Volume 90.9 fL (80.0-100.0); Mean Platelet Volume 8.9 fL (7.0-11.0); Mono # (Auto) 0.7 th/mm3 (0.0-0.9); Mono % (Auto) 12.8 % (0.0-8.0); Neut # (Auto) 3.9 th/mm3 (1.8-7.7); Neut % (Auto) 70.8 % (16.0-70.0); Platelet Count 217 th/mm3 (150-450); Red Blood Count 2.88 mil/mm3 (4.00-5.30); White Blood Count 5.5 th/mm3 (4.0-11.0)
[2018-06-09 07:04] LABS: Potassium 3.7 meq/L (3.5-5.1)
[2018-06-09 07:18] LABS: Calcium 7.3 mg/dL (8.5-10.1); Carbon Dioxide 17.8 meq/L (21.0-32.0)
[2018-06-09 07:34] LABS: Total Protein 4.4 g/dL (6.4-8.2)
--- NOTE | 2018-06-09 07:42 | P.PNIM ---
Subjective Interval history: Follow-up generalized weakness, abdominal pain, nausea and vomiting and UTI. Patient seen and examined, lying in bed comfortably no apparent distress. Patient states she feels much improved today, the best she has felt since presentation. She denies any abdominal pain for the first time since presentation, denies any nausea. Has been tolerating clear liquids as well as pills. Will remove NG tube today and advance diet as tolerated. Vital signs are stable overnight. Afebrile. We will continue to monitor. Denies any chest pain, headache, shortness of breath. Physical Exam Vital signs: Vital Signs 06/08/18 07:53 06/08/18 08:00 06/08/18 12:00 Temperature 97.7 F 96.8 F L Pulse Rate 92 H 96 H Respiratory Rate 18 20 Blood Pressure 108/52 L 113/59 L Pulse Oximetry 93 L 91 L 95 06/08/18 16:00 06/08/18 20:00 06/09/18 00:00 Temperature 97.4 F L 97.7 F 97.4 F L Pulse Rate 93 H 93 H 87 Respiratory Rate 20 18 18 Blood Pressure 97/46 L 108/52 L 113/55 L Pulse Oximetry 91 L 91 L 94 L 06/09/18 04:00 Temperature 96.9 F L Pulse Rate 91 H Respiratory Rate 18 Blood Pressure 109/53 L Pulse Oximetry 92 L Intake & Output 06/08/18 06/09/18 06/09/18 18:59 06:59 18:59 Intake Total 1420 / 1420 0 / 0 Output Total 300 / 300 300 / 300 Balance 1120 / 1120 -300 / -300 Intake: IV 1420 / 1420 NS Inj 1,000 ML @ 100 mls/hr IV 1120 / 1120 .CONT .Q10H [facility] Rx#:[id number] Flexbumin 25% Inj 100 ML @ 60 100 / 100 mls/hr IV.SIG ONCE ONE Rx#: [id number] Cipro 400 MG/200 ML Inj 400 mg 200 / 200 In 200 ml @ 200 mls/hr IV.SIG Q12H [facility] Rx#:[id number] Oral 0 / 0 0 / 0 Output: Urine 300 / 300 Urine Amount (Catheter) 300 / 300 Indwelling Urethral Catheter 300 / 300 Other: Date of Last Bowel Movement 06/08/18 06/08/18 Narrative: GENERAL: Well-developed, well-nourished patient lying in bed in no apparent distress. NG tube removed. SKIN: Warm and dry. No rash. HEAD: Normocephalic. Atraumatic. EYES: Pupils equal and round. No scleral icterus. No injection or drainage. ENT: No nasal bleeding or discharge. Mucous membranes pink and moist. NECK: Supple. Trachea midline. CARDIOVASCULAR: Regular rate and rhythm. S1, S2 noted. No murmur appreciated. No chest pain to palpation. RESPIRATORY: No accessory muscle use. Clear to auscultation. Breath sounds equal bilaterally. GASTROINTESTINAL: Abdomen soft, soft, nondistended. No tenderness today. Normoactive bowel sounds x4. MUSCULOSKELETAL: No obvious deformities. Extremities without clubbing, cyanosis , or edema. NEUROLOGICAL: Awake and alert. No obvious cranial nerve deficits. Motor grossly within normal limits. 4/5 muscle strength in bilateral upper and lower extremities. Normal speech. PSYCHIATRIC: Appropriate mood and affect; insight and judgment normal. - Urinary Catheter Management Indwelling Urethral Catheter Cath placed during this visit: yes Reason for continuing: Chronic Urinary Retention Insertion date: 06/04/18 Insertion time: 08:22 Straight Cath placed during this visit: yes, but has since been removed by the nurse Reason for continuing: Acute urinary retention Insertion date: 06/04/18 Insertion time: 15:00 Removal date: 06/04/18 Removal time: 02:35 Results - Labs CBC & Chem 7: 06/09/18 05:53 06/09/18 05:53 Laboratory Results - last 24 hr 06/08/18 06/08/18 06/09/18 06:55 06:55 05:53 CBC w Diff Auto diff final Auto diff final WBC 5.3 5.5 RBC 3.41 L 2.88 L Hgb 10.7 L 9.2 L Hct 31.2 L 26.2 L MCV 91.5 90.9 MCH 31.4 31.8 MCHC 34.3 35.0 RDW 15.9 16.0 Plt Count 225 D 217 MPV 9.6 8.9 Neut % (Auto) 68.3 70.8 H Lymph % (Auto) 8.2 L 8.2 L [place] % (Auto) 15.5 H 12.8 H Eos % (Auto) 7.5 H 7.8 H Baso % (Auto) 0.5 0.4 Neut # (Auto) 3.7 3.9 Lymph # (Auto) 0.4 L 0.5 L [place] # (Auto) 0.8 0.7 Eos # (Auto) 0.4 0.4 Baso # (Auto) 0.0 0.0 WBC Differential . . Differential Comment . . Sodium 144 Potassium 3.2 L Chloride 110 H Carbon Dioxide 18.8 L Anion Gap 15 BUN 21 H Creatinine 1.30 H Estimated GFR 39 L Random Glucose 59 L Calcium 7.1 L* Prot Corrected Calcium 8.3 L Total Protein 4.9 L 06/09/18 05:53 CBC w Diff WBC RBC Hgb Hct MCV MCH MCHC RDW Plt Count MPV Neut % (Auto) Lymph % (Auto) [place] % (Auto) Eos % (Auto) Baso % (Auto) Neut # (Auto) Lymph # (Auto) [place] # (Auto) Eos # (Auto) Baso # (Auto) WBC Differential Differential Comment Sodium 142 Potassium 3.7 Chloride 110 H Carbon Dioxide 17.8 L Anion Gap 14 BUN 22 H Creatinine 1.70 H Estimated GFR 29 L Random Glucose 52 L Calcium 7.3 L* Prot Corrected Calcium 8.8 Total Protein 4.4 L Assessment and Plan - Assessment (1) Intractable low back pain Code(s): M54.5 - Low back pain Status: Acute (2) Acute UTI Code(s): N39.0 - Urinary tract infection, site not specified Status: Acute (3) Acute kidney injury Code(s): N17.9 - Acute kidney failure, unspecified Status: Acute (4) Debility Code(s): R53.81 - Other malaise Status: Acute (5) Dehydration Code(s): E86.0 - Dehydration Status: Acute - Plan This is a pleasant 82-year-old female patient with: Debility, inability to walk Generalized weakness, improving. Intractable back pain, improving. Chronic back pain -Patient states she has been unable to walk x 2 days prior to presentation. Patient's baseline is ability to walk at baseline and perform ADLs per self, uses walker at home. -MRI of lumbar spine was done did not show any cord compression. MRI of the pelvis is showing ileus, no acute findings to explain weakness. Pelvis x-ray unremarkable for fracture. -Physical therapy has been consulted, appreciate input recommendations. Ultimately will need rehab at discharge. -Pain control with Ultram as needed per pain scale. IV morphine added as well. Pain is more controlled today. -Supportive care. Urinary tract infection, + Klebsiella Acute on chronic kidney disease suspect secondary to above and retention -Daughter reports patient has a history of chronic kidney disease, actually told at one point she was at stage IV. -Creatinine 1.9 on presentation, has improved overall initially although is now trending back up. -UA showing presence of leukocyte esterase as well as white blood cells. Urine culture showing Klebsiella. Continued on ciprofloxacin PO. -Attempted diuretics yesterday secondary to low urinary output and third spacing. Diuresing well although with continued fluid balance. TONY at 1.7/GFR 29 today. IVF dc'd. -Monitor intake and output closely. Avoid nephrotoxins. -Will continue to monitor. BMP in am. Acute urinary retention suspect secondary to immobility -A Gonzales catheter was placed in ED, attempted removal of catheter, patient had resultant urinary retention. -Consult placed to urology, appreciate input. Recommendations to increase mobility as tolerated. -Continue Gonzales catheter for now. Urinary training when mobility improved. -May need to be dc'd with catheter and follow up outpatient urology. Monitor progress. Acute abdominal ileus Abdominal pain, improved. Nausea and vomiting, improved. -Reports of 30-pound weight loss over the past 2 months as well as chronic nausea and abdominal pain. -Abdominal/pelvis CT done in ED, and reviewed showing no obvious etiology for the weight loss of abdominal pain. -MRI of the back as above. MRI pelvis showing presence of ileus. -IV Zofran available for nausea. Megace added to the regimen. -KUB initially showing ileus. Rested bowel. Pain control with NSAIDs, limit narcotics. NGT to LIWS has been removed today. Attempt clear liquids for now, advance as tolerated. -Bowel regimen, reports of BM yesterday. Active bowel sounds. -Continue Reglan. -Gastroenterology consulted, input and recommendations appreciated. -Await clinical improvement and advancement of diet. History of hypertension: Continue to monitor BP trends. Continue home medications. History of hyperlipidemia: Continue home statin. DVT prophylaxis: SCDs. Heparin. Discharge Planning: Await clinical improvement. Ileus resolving, advance diet and assess tolerance. Still increased weakness, await improvement. Continued PT. Ultimately will need rehab placement upon dc.
[2018-06-09] MEDS: Anastrozole 1 MG Tablet PO SCH (10:20)
[2018-06-09] MEDS: Ciprofloxacin 250 MG Tablet PO SCH ×2 (10:21→22:01)
[2018-06-09] MEDS: Senna/Docusate Sodium 8.6/50 MG Tablet PO SCH ×2 (10:22→22:01)
[2018-06-09] MEDS: dilTIAZem CD 120 MG Capsule PO SCH (10:22)
[2018-06-09] MEDS: Budesonide-Formoterol 160/4.5 MCG 6 GM Inhaler INH SCH ×2 (10:23→22:01)
[2018-06-09] MEDS: Tiotropium Bromide 18 MCG/ACT Inhaler INH SCH (10:23)
[2018-06-09] MEDS ORDERED: Morphine Sulfate Inj 2 MG/ML Vial IV.PUSH PRN (12:34)
--- NOTE | 2018-06-09 13:02 | P.PNGI ---
Subjective Interval history: Feels better with passage of gas rectally. Denies BM . Physical Exam Vital signs: Vital Signs 06/08/18 16:00 06/08/18 20:00 06/09/18 00:00 Temperature 97.4 F L 97.7 F 97.4 F L Pulse Rate 93 H 93 H 87 Respiratory Rate 20 18 18 Blood Pressure 97/46 L 108/52 L 113/55 L Pulse Oximetry 91 L 91 L 94 L 06/09/18 04:00 06/09/18 08:00 06/09/18 08:18 Temperature 96.9 F L 97.5 F L Pulse Rate 91 H 88 Respiratory Rate 18 18 Blood Pressure 109/53 L 112/54 L Pulse Oximetry 92 L 92 L 92 L 06/09/18 12:00 Temperature 97.2 F L Pulse Rate 89 Respiratory Rate 18 Blood Pressure 108/53 L Pulse Oximetry 92 L Intake & Output 06/08/18 06/09/18 06/09/18 18:59 06:59 18:59 Intake Total 1420 / 1420 0 / 0 Output Total 300 / 300 300 / 300 Balance 1120 / 1120 -300 / -300 Intake: IV 1420 / 1420 NS Inj 1,000 ML @ 100 mls/hr IV 1120 / 1120 .CONT .Q10H [facility] Rx#:[id number] Flexbumin 25% Inj 100 ML @ 60 100 / 100 mls/hr IV.SIG ONCE ONE Rx#: [id number] Cipro 400 MG/200 ML Inj 400 mg 200 / 200 In 200 ml @ 200 mls/hr IV.SIG Q12H [facility] Rx#:[id number] Oral 0 / 0 0 / 0 Output: Urine 300 / 300 Urine Amount (Catheter) 300 / 300 Indwelling Urethral Catheter 300 / 300 Other: Date of Last Bowel Movement 06/08/18 06/08/18 06/08/18 - Constitutional no acute distress - Routine HEENT Exam Head: Present: normocephalic Eye: Present: EOMI - Routine Neck Exam Present: supple - Routine Respiratory Exam Present: CTA bilaterally - Routine Cardiovascular Exam Present: RRR - Routine Abdominal Exam Present: soft, distended - Urinary Catheter Management Indwelling Urethral Catheter Cath placed during this visit: yes Reason for continuing: Chronic Urinary Retention Insertion date: 06/04/18 Insertion time: 08:22 Straight Cath placed during this visit: yes, but has since been removed by the nurse Reason for continuing: Acute urinary retention Insertion date: 06/04/18 Insertion time: 15:00 Removal date: 06/04/18 Removal time: 02:35 Results - Labs CBC & Chem 7: 06/09/18 05:53 06/09/18 05:53 Laboratory Results - last 24 hr 06/09/18 06/09/18 05:53 05:53 CBC w Diff Auto diff final WBC 5.5 RBC 2.88 L Hgb 9.2 L Hct 26.2 L MCV 90.9 MCH 31.8 MCHC 35.0 RDW 16.0 Plt Count 217 MPV 8.9 Neut % (Auto) 70.8 H Lymph % (Auto) 8.2 L [place] % (Auto) 12.8 H Eos % (Auto) 7.8 H Baso % (Auto) 0.4 Neut # (Auto) 3.9 Lymph # (Auto) 0.5 L [place] # (Auto) 0.7 Eos # (Auto) 0.4 Baso # (Auto) 0.0 WBC Differential . Differential Comment . Sodium 142 Potassium 3.7 Chloride 110 H Carbon Dioxide 17.8 L Anion Gap 14 BUN 22 H Creatinine 1.70 H Estimated GFR 29 L Random Glucose 52 L Calcium 7.3 L* Prot Corrected Calcium 8.8 Total Protein 4.4 L Assessment and Plan - Plan Seen and examined with family. Reports feeling better but no BM yet. Previous CT without contrast -ve for obstruction. Gastrografin enema recommended, sreekanth case.
[2018-06-09] MEDS ORDERED: Diatrizoate Meglum/Diatrizoate Sod Liq 120 ML Bottle (for RAD diag) RECTAL ONE (16:00)
--- NOTE | 2018-06-09 16:19 | XR ---
EXAM DATE: 06/09/2018 3:00 PM EDT AGE/SEX: 82 years / Female INDICATIONS: Abdomen pain CLINICAL DATA: This is the patient's subsequent encounter. Patient reports that signs and symptoms h ave been present for 4 - 6 days and indicates a pain score of 4/10. MEDICAL/SURGICAL HISTORY: . Hypertension. Carcinoma, breast. Chronic renal failure. COPD . . Hysterectomy. Back sx. Appendectomy. COMPARISON: [facility], ABDOMEN 1V KUB, 06/07/2018. . FINDINGS: Today's examination is compared to the prior study. There continues to be moderate to prominent gase ous distention of the colon. The transverse colon measures approximately 8.4 cm on today's study comp ared to 9.4 cm on the prior study. Otherwise, the overall bowel gas pattern is not significantly ruiz ged compared to the prior examination. There are some stable air-filled nondilated loops of small bow el. CONCLUSION: There continues to be moderate to prominent gaseous distention of the colon which is not significantl y changed compared to the prior study. Electronically signed by: James Mendiola MD 06/09/2018 4:18 PM EDT
--- NOTE | 2018-06-09 16:37 | FL ---
EXAM DATE: 06/09/2018 12:00 AM EDT AGE/SEX: 82 years / Female INDICATIONS: Evaluate for obstruction. CLINICAL DATA: This is the patient's subsequent encounter. Patient reports that signs and symptoms h ave been present for 1 week and indicates a pain score of 1/10. MEDICAL/SURGICAL HISTORY: . Hypertension. Carcinoma, breast. Chronic renal failure. COPD . . Hysterectomy. Back sx. Appendectomy. COMPARISON: No prior exams available for comparison. FLUORO TIME: .7 IMAGE COUNT: 16 FINDINGS: [employer] film demonstrates air-filled dilated loops of colon suggesting diffuse ileus. Degenerative ruiz ges and scoliosis of the thoracolumbar spine are noted. Under fluoroscopic guidance a Gastrografin enema was performed with free flow of contrast to the ceca l tip. Post evacuation radiographs are unremarkable. CONCLUSION: 1. No evidence of obstructing lesion. 2. Diffuse colonic ileus. 3. Degenerative changes and scoliosis of the thoracolumbar spine. Electronically signed by: Luis Payton MD 06/09/2018 4:36 PM EDT
--- NOTE | 2018-06-09 16:38 | ECG ---
Date Performed: 06/08/2018 Time Performed: 14:59:15 PTAGE: 82 years EKG: Sinus rhythm WITH OCCASIONAL SUPRAVENTRICULAR PREMATURE COMPLEXES LEFT BUNDLE BRANCH BLOCK Since the previous tra cing, no significant change noted ABNORMAL ECG PREVIOUS TRACING : 07/14/2017 15.36 DOCTOR: Betsy Mederos Interpretating Date/Time 06/09/2018 16:36:41
[2018-06-09] MEDS: Temazepam 15 MG Capsule PO PRN (22:08)
[2018-06-10 06:35] LABS: Potassium 3.4 meq/L (3.5-5.1)
[2018-06-10 06:42] LABS: Calcium 7.9 mg/dL (8.5-10.1); Carbon Dioxide 22.1 meq/L (21.0-32.0)
[2018-06-10] MEDS: Budesonide-Formoterol 160/4.5 MCG 6 GM Inhaler INH SCH ×2 (09:08→22:55)
[2018-06-10] MEDS: Tiotropium Bromide 18 MCG/ACT Inhaler INH SCH (09:09)
[2018-06-10] MEDS: Anastrozole 1 MG Tablet PO SCH (09:10)
[2018-06-10] MEDS: Senna/Docusate Sodium 8.6/50 MG Tablet PO SCH ×2 (09:10→22:55)
[2018-06-10] MEDS: Ciprofloxacin 250 MG Tablet PO SCH ×2 (09:10→22:54)
[2018-06-10] MEDS: dilTIAZem CD 120 MG Capsule PO SCH (09:10)
--- NOTE | 2018-06-10 15:07 | P.PN ---
Subjective Interval history: 82-year-old female who is seen and examined today in follow-up for inability to ambulate, abdominal pain, back pain. Patient sitting in chair quite comfortably at this time tolerating the liquid diet. Discussed with the patient and daughter at bedside about her clinical condition. Patient has significant he improved. Daughter is concerned that patient still has indwelling Gonzales as well as no bowel movement. Daughter has 1 outlook that care home facilities for discharge planning. Vital signs appear to be stable, patient remains afebrile. Physical Exam Vital signs: Vital Signs 06/09/18 16:00 06/09/18 16:14 06/09/18 16:37 Temperature 97.6 F Pulse Rate 96 H Respiratory Rate 18 Blood Pressure 104/52 L 112/50 L Pulse Oximetry 94 L 92 L 06/09/18 20:00 06/10/18 00:00 06/10/18 04:00 Temperature 96.7 F L 97.2 F L 96.5 F L Pulse Rate 93 H 88 89 Respiratory Rate 18 18 18 Blood Pressure 125/60 102/50 L 110/53 L Pulse Oximetry 93 L 95 97 06/10/18 08:00 06/10/18 11:41 Temperature 95.3 F L Pulse Rate 91 H 97 H Respiratory Rate Blood Pressure 100/59 L Pulse Oximetry 94 L Intake & Output 06/09/18 06/10/18 06/10/18 18:59 06:59 18:59 Intake Total 0 / 0 Output Total 350 / 350 600 / 600 250 / 250 Balance -350 / -350 -600 / -600 -250 / -250 Weight 64 kg Intake: Oral 0 / 0 Output: Urine 300 / 300 Stool 300 / 300 Urine Amount (Catheter) 350 / 350 250 / 250 Indwelling Urethral Catheter 350 / 350 250 / 250 Other: Date of Last Bowel Movement 06/08/18 06/09/18 06/09/18 Narrative: GENERAL: Well-developed, well-nourished, in no acute distress. alert HEENT: Head is normocephalic without any lesions or masses noted. Facial features are symmetric. Eyes: Extraocular muscles are intact. Conjunctivae were clear. NECK: Supple without any masses. Trachea midline no deviation. No JVD, CARDIAC: Regular rhythm, regular rate. S1/S2 are heard. No murmurs gallops or rubs. LUNGS: Clear to auscultation bilaterally. No wheeze, rhonchi or rales. No use of accessory muscles on inspiration or expiration. ABDOMEN: Soft, nontender. Nondistended. Bowel sounds heard in all 4 quadrants. No organomegaly or masses. Negative rebound, negative guarding EXTREMITIES: No edema, pulses are equal bilaterally. No cyanosis or clubbing NEUROLOGY: Mood and affect appear appropriate. Cranial nerves II through XII grossly intact. Moving all extremities, speech is clear - Urinary Catheter Management Indwelling Urethral Catheter Cath placed during this visit: yes, but has since been removed by the nurse Reason for continuing: Decision to DC catheter Insertion date: 06/04/18 Insertion time: 08:22 Removal date: 06/10/18 Removal time: 12:00 Straight Cath placed during this visit: yes, but has since been removed by the nurse Reason for continuing: Acute urinary retention Insertion date: 06/04/18 Insertion time: 15:00 Removal date: 06/04/18 Removal time: 02:35 Results - Labs CBC & Chem 7: 06/09/18 05:53 06/10/18 05:50 Laboratory Results - last 24 hr 06/10/18 05:50 Sodium 145 Potassium 3.4 L Chloride 112 H Carbon Dioxide 22.1 Anion Gap 11 BUN 23 H Creatinine 1.90 H Estimated GFR 25 L Random Glucose 77 Calcium 7.9 L - Imaging Impressions Enema w/Water Soluble 06/09/18 00:00 CONCLUSION: 1. No evidence of obstructing lesion. 2. Diffuse colonic ileus. 3. Degenerative changes and scoliosis of the thoracolumbar spine. Abdomen X-Ray 06/09/18 15:00 CONCLUSION: There continues to be moderate to prominent gaseous distention of the colon which is not significantly changed compared to the prior study. Assessment and Plan - Assessment (1) Intractable low back pain Code(s): M54.5 - Low back pain Status: Acute (2) Acute UTI Code(s): N39.0 - Urinary tract infection, site not specified Status: Acute (3) Acute kidney injury Code(s): N17.9 - Acute kidney failure, unspecified Status: Acute (4) Debility Code(s): R53.81 - Other malaise Status: Acute (5) Dehydration Code(s): E86.0 - Dehydration Status: Acute - Plan Debility, inability to walk Generalized weakness, improving. Intractable back pain, improving. Chronic back pain -Patient states she has been unable to walk x 2 days prior to presentation. Patient's baseline is ability to walk at baseline and perform ADLs per self, uses walker at home. -MRI of lumbar spine was done did not show any cord compression. MRI of the pelvis is showing ileus, no acute findings to explain weakness. Pelvis x-ray unremarkable for fracture. -Physical therapy has been consulted, appreciate input recommendations. Ultimately will need rehab at discharge. -Pain control with Ultram as needed per pain scale. Patient has not required any pain management since last night -Supportive care. Urinary tract infection, -Urine culture indicating Klebsiella pneumonia -Patient was started on Cipro on admission and has continued for 7 days. Will discontinue Cipro at this time Acute on chronic kidney disease -suspect secondary urinary retention -Patient was on IV fluids initially, they have been discontinued at this time -Patient was started on Flomax -Diuretics were attempted due to low urinary output and third spacing. Patient did diurese well, however renal function did worsen Acute urinary retention suspect secondary to immobility, possible narcotic use -A Gonzales catheter was placed in ED, attempted removal of catheter, patient had resultant urinary retention. -Consult placed to urology, appreciate input. Recommended voiding trial after weaning narcotics, patient is ambulating and ileus has resolved -Discontinue Gonzales today, monitor for urinary output Acute abdominal ileus Abdominal pain, improved. Nausea and vomiting, improved. -Abdominal/pelvis CT done in ED, and reviewed showing no obvious etiology for the weight loss of abdominal pain. -MRI of the back as above. MRI pelvis showing presence of ileus. -IV Zofran available for nausea. Megace added to the regimen. -KUB initially showing ileus. Rested bowel. Pain control with NSAIDs, limit narcotics. NGT to LIWS which was resolved. -Patient tolerating diet at this time -Gastroenterology consulted, input and recommendations appreciated. -Gastrografin enema was performed which did not indicate any signs of obstruction History of hypertension, hyperlipidemia: -Home medications were continued DVT prophylaxis: -Subcutaneous heparin Discharge Planning: Discharge planning likely tomorrow to care home facility
--- NOTE | 2018-06-10 17:05 | P.PNGI ---
Subjective Interval history: Multiple BMs today, feels better Physical Exam Vital signs: Vital Signs 06/09/18 20:00 06/10/18 00:00 06/10/18 04:00 Temperature 96.7 F L 97.2 F L 96.5 F L Pulse Rate 93 H 88 89 Respiratory Rate 18 18 18 Blood Pressure 125/60 102/50 L 110/53 L Pulse Oximetry 93 L 95 97 06/10/18 08:00 06/10/18 11:41 06/10/18 16:00 Temperature 95.3 F L 97.5 F L Pulse Rate 91 H 97 H 93 H Respiratory Rate 22 Blood Pressure 100/59 L 99/49 L Pulse Oximetry 94 L 94 L Intake & Output 06/09/18 06/10/18 06/10/18 18:59 06:59 18:59 Intake Total 0 / 0 Output Total 350 / 350 600 / 600 250 / 250 Balance -350 / -350 -600 / -600 -250 / -250 Weight 64 kg Intake: Oral 0 / 0 Output: Urine 300 / 300 Stool 300 / 300 Urine Amount (Catheter) 350 / 350 250 / 250 Indwelling Urethral Catheter 350 / 350 250 / 250 Other: Date of Last Bowel Movement 06/08/18 06/09/18 06/09/18 - Constitutional no acute distress - Routine HEENT Exam Head: Present: normocephalic - Routine Neck Exam Present: supple - Routine Respiratory Exam Present: CTA bilaterally - Routine Cardiovascular Exam Present: RRR - Routine Abdominal Exam Present: soft, distended - Urinary Catheter Management Indwelling Urethral Catheter Cath placed during this visit: yes, but has since been removed by the nurse Reason for continuing: Decision to DC catheter Insertion date: 06/04/18 Insertion time: 08:22 Removal date: 06/10/18 Removal time: 12:00 Straight Cath placed during this visit: yes, but has since been removed by the nurse Reason for continuing: Acute urinary retention Insertion date: 06/04/18 Insertion time: 15:00 Removal date: 06/04/18 Removal time: 02:35 Results - Labs CBC & Chem 7: 06/09/18 05:53 06/10/18 05:50 Laboratory Results - last 24 hr 06/10/18 05:50 Sodium 145 Potassium 3.4 L Chloride 112 H Carbon Dioxide 22.1 Anion Gap 11 BUN 23 H Creatinine 1.90 H Estimated GFR 25 L Random Glucose 77 Calcium 7.9 L Assessment and Plan - Plan Seen and examined, s/p gastrografin enema resulting in multiple BMs afterwards. Tolerating po diet. KUB in am.
[2018-06-10] MEDS: Temazepam 15 MG Capsule PO PRN (23:07)
[2018-06-11 06:33] LABS: Baso % (Auto) 0.3 % (0.0-2.0); Eos # (Auto) 0.4 th/mm3 (0.0-0.4); Eos % (Auto) 8.5 % (0.0-4.0); Hematocrit 30.6 % (35.0-46.0); Hemoglobin 9.9 gm/dL (11.6-15.3); Lymph # (Auto) 0.5 th/mm3 (1.0-4.8); Lymph % (Auto) 11.1 % (9.0-44.0); Mean Corpuscular HGB Conc 32.5 % (32.0-36.0); Mean Corpuscular Hemoglobin 30.1 pg (27.0-34.0); Mean Corpuscular Volume 92.5 fL (80.0-100.0); Mean Platelet Volume 8.5 fL (7.0-11.0); Mono # (Auto) 0.6 th/mm3 (0.0-0.9); Mono % (Auto) 13.1 % (0.0-8.0); Neut # (Auto) 3.3 th/mm3 (1.8-7.7); Platelet Count 225 th/mm3 (150-450); Red Blood Count 3.31 mil/mm3 (4.00-5.30); White Blood Count 4.8 th/mm3 (4.0-11.0)
[2018-06-11 06:52] LABS: Potassium 3.3 meq/L (3.5-5.1)
[2018-06-11 06:55] LABS: Calcium 7.9 mg/dL (8.5-10.1)
[2018-06-11 06:56] LABS: Carbon Dioxide 23.1 meq/L (21.0-32.0)
[2018-06-11] MEDS: dilTIAZem CD 120 MG Capsule PO SCH (08:28)
[2018-06-11] MEDS: Anastrozole 1 MG Tablet PO SCH (08:28)
[2018-06-11] MEDS: Senna/Docusate Sodium 8.6/50 MG Tablet PO SCH (08:28)
[2018-06-11] MEDS: Ciprofloxacin 250 MG Tablet PO SCH (08:28)
[2018-06-11] MEDS: Budesonide-Formoterol 160/4.5 MCG 6 GM Inhaler INH SCH (08:30)
[2018-06-11 08:31] VITALS: RESP 18
[2018-06-11] MEDS: Tiotropium Bromide 18 MCG/ACT Inhaler INH SCH (09:32)
--- NOTE | 2018-06-11 11:49 | XR ---
EXAM DATE: 06/11/2018 10:27 AM EDT AGE/SEX: 82 years / Female INDICATIONS: Ileus. Distender abdomen. CLINICAL DATA: This is the patient's subsequent encounter. Patient reports that signs and symptoms h ave been present for 2 weeks and indicates a pain score of 8/10. MEDICAL/SURGICAL HISTORY: Hypertension. Carcinoma, breast. Chronic renal failure. COPD . Back s x. Appendectomy. Hysterectomy. COMPARISON: [facility]PO, ABDOMEN 1V KUB, 06/09/2018. . FINDINGS: Today's exam is compared to the prior study. There continues to be some gaseous distention of the col on. However, the bowel gas pattern appears to be mildly improved compared to the prior study. The pre viously noted segment of air-filled dilatation of the transverse colon has decreased in size now jazmyne uring 7.3 cm compared to the prior study at 8.4 cm. There is some residual contrast noted in the colo n. No residual contrast is seen in the small bowel. CONCLUSION: Mild overall improvement of the bowel gas pattern compared to the prior study. There has been a mild reduction in the size of the air-filled dilatation of the colon. Otherwise, no other significant ruiz ges are demonstrated. Electronically signed by: James Mendiola MD 06/11/2018 11:48 AM EDT
--- NOTE | 2018-06-11 13:17 | P.DS ---
Date of admission: 06/03/18 12:22 Primary care physician: Annabel Gamboa MD Attending physician on discharge: Sherin Cope Anticipated date of discharge: 06/11/18 Brief History from admission: This is a pleasant 82-year-old female patient with a known medical history of breast cancer in remission, hypertension, COPD, hyperlipidemia, osteoporosis who presented to the ED with complaints of abdominal pain, pubic pain and back pain. Patient states that around Saturday in the morning as she was doing some housework she developed a sharp pain in her lower pubic area as well as her back. She states that the pain has been ongoing for the past couple days and is worse at night and with activity. Patient states that Saturday her significant other neighbor had to help her out of bed, with complaints of inability to walk. It should be noted that patient has had abdominal pain intermittently over the past couple months, she states that the abdominal pain is cramping and has been associated with nausea. She does have vomiting intermittently as well. She admits to a 30 pound weight loss over the past couple months. She has been unable to eat due to nausea and loss of appetite. PCP is Dr. Milian, last seen a week ago, was referred to a hydroelectric powerplant supervisor who did adjust her blood pressure medications and stopped her diuretic. She does have some chronic kidney disease. It should be noted that patient was hospitalized in March for back pain, at that time an MRI was done and did not show any cord compression. Since that time patient has been suffering from intermittent back pain has been taking prescribed Percocet on and off as needed. Patient does have a scheduled appointment with a genetic counsellor in early June, she states that her last colonoscopy was years ago when with no significant findings. She denies any changes to her bowel habits, no bleeding or black stools. She does have a history of breast cancer is on anastrozole and she states that she has been in remission. She sees Dr. Alanis on a yearly basis, last seen in August. DS: Diagnosis - Discharge Diagnosis (1) Intractable low back pain Status: Acute (2) Acute UTI Status: Acute (3) Acute kidney injury Status: Acute (4) Debility Status: Acute (5) Dehydration Status: Acute DS: Summary Hospital Course: Debility, inability to walk Generalized weakness, improving. Intractable back pain, improving. Chronic back pain -Patient states she has been unable to walk x 2 days prior to presentation. Patient's baseline is ability to walk at baseline and perform ADLs per self, uses walker at home. -MRI of lumbar spine was done did not show any cord compression. MRI of the pelvis is showing ileus, no acute findings to explain weakness. Pelvis x-ray unremarkable for fracture. -Physical therapy has been consulted, appreciate input recommendations. Ultimately, there indicating patient will require rehab upon discharge Urinary tract infection, -Urine culture indicating Klebsiella pneumonia -Patient received complete treatment of Cipro Acute on chronic kidney disease -suspect secondary urinary retention -Patient was on IV fluids initially, they have been discontinued at this time -Patient continued on Flomax -Diuretics were attempted due to low urinary output and third spacing. Patient did diurese well, however renal function did worsen Acute urinary retention suspect secondary to immobility, possible narcotic use -A Gonzales catheter was placed in ED, attempted removal of catheter, patient had resultant urinary retention. -Consult placed to urology, appreciate input. Recommended voiding trial after weaning narcotics, patient is ambulating and ileus has resolved -Gonzales was discontinued, patient with urinary incontinence. No longer any retention. Acute abdominal ileus, resolved Abdominal pain, improved. Nausea and vomiting, improved. -Abdominal/pelvis CT done in ED, and reviewed showing no obvious etiology for the weight loss of abdominal pain. -MRI of the back as above. MRI pelvis showing presence of ileus. -Follow-up x-ray shows overall improvement of bowel gas pattern -Megace added to the regimen. -Patient tolerating diet at this time -Gastroenterology consulted, input and recommendations appreciated. Discussed results of KUB today. They indicate patient can have diet advanced and discharge to rehab facility -Gastrografin enema was performed which did not indicate any signs of obstruction History of hypertension, hyperlipidemia: -Home medications were continued - Time Spent with Patient Total time spent providing and/or coordinating discharge services: Greater than 30 minutes - Quality: VTE Deep Vein Thrombosis/Pulmonary Embolism Present on Admission: No Exam Vital signs: Vital Signs 06/10/18 16:00 06/10/18 22:58 06/11/18 00:00 Temperature 97.5 F L 97.1 F L 97.2 F L Pulse Rate 93 H 98 H 95 H Respiratory Rate 22 16 16 Blood Pressure 99/49 L 102/56 L 114/55 L Pulse Oximetry 94 L 94 L 90 L 06/11/18 08:00 06/11/18 12:00 Temperature 96.2 F L 98.0 F Pulse Rate 90 101 H Respiratory Rate 18 18 Blood Pressure 122/59 L 112/52 L Pulse Oximetry 92 L 94 L Intake & Output 06/10/18 06/11/18 06/11/18 18:59 06:59 18:59 Intake Total 100 / 100 Output Total 450 / 450 Balance -450 / -450 100 / 100 Weight 64 kg Intake: Oral 100 / 100 Output: Urine 200 / 200 Urine Amount (Catheter) 250 / 250 Indwelling Urethral Catheter 250 / 250 Other: Date of Last Bowel Movement 06/09/18 06/11/18 06/11/18 # Bowel Movements 2 Narrative: GENERAL: Well-developed, well-nourished, in no acute distress. alert HEENT: Head is normocephalic without any lesions or masses noted. Facial features are symmetric. Eyes: Extraocular muscles are intact. Conjunctivae were clear. NECK: Supple without any masses. Trachea midline no deviation. No JVD, CARDIAC: Regular rhythm, regular rate. S1/S2 are heard. No murmurs gallops or rubs. LUNGS: Clear to auscultation bilaterally. No wheeze, rhonchi or rales. No use of accessory muscles on inspiration or expiration. ABDOMEN: Soft, nontender. Nondistended. Bowel sounds heard in all 4 quadrants. No organomegaly or masses. Negative rebound, negative guarding EXTREMITIES: No edema, pulses are equal bilaterally. No cyanosis or clubbing NEUROLOGY: Mood and affect appear appropriate. Cranial nerves II through XII grossly intact. Moving all extremities, speech is clear Results Procedures completed during hospitalization: none Labs on day of discharge: Labs from last 24 hours 06/11/18 06/11/18 05:50 05:50 CBC w Diff Auto diff final WBC 4.8 RBC 3.31 L Hgb 9.9 L Hct 30.6 L MCV 92.5 MCH 30.1 MCHC 32.5 RDW 16.0 Plt Count 225 MPV 8.5 Neut % (Auto) 67.0 Lymph % (Auto) 11.1 [place] % (Auto) 13.1 H Eos % (Auto) 8.5 H Baso % (Auto) 0.3 Neut # (Auto) 3.3 Lymph # (Auto) 0.5 L [place] # (Auto) 0.6 Eos # (Auto) 0.4 Baso # (Auto) 0.0 WBC Differential . Differential Comment . Sodium 146 H Potassium 3.3 L Chloride 112 H Carbon Dioxide 23.1 Anion Gap 11 BUN 23 H Creatinine 1.90 H Estimated GFR 25 L Random Glucose 80 Calcium 7.9 L - Impressions ITS Impressions Abdomen/Pelvis CT 06/02/18 08:10 CONCLUSION: 1. No acute CT abnormality in the abdomen or pelvis. 2. Patient is status post hysterectomy with no significant adnexal mass. 3. 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 Lumbar Spine MRI 06/02/18 09:45 CONCLUSION: 1. No evidence for acute lumbar spine compression fracture. 2. Mild multilevel degenerative spondylosis of the lumbar spine without significant central canal or neural foraminal stenosis. 3. Please see above for detailed description of each level. Pelvis X-Ray 06/04/18 00:00 CONCLUSION: No acute bony abnormality. Osteopenia. Diffuse ileus. Pelvis MRI 06/05/18 00:00 CONCLUSION: 1. Gaseous distention of the colon. 2. Minimal free pelvic fluid. Enema w/Water Soluble 06/09/18 00:00 CONCLUSION: 1. No evidence of obstructing lesion. 2. Diffuse colonic ileus. 3. Degenerative changes and scoliosis of the thoracolumbar spine. Abdomen X-Ray 06/11/18 10:27 CONCLUSION: Mild overall improvement of the bowel gas pattern compared to the prior study. There has been a mild reduction in the size of the air-filled dilatation of the colon. Otherwise, no other significant changes are demonstrated. Discharge Plan - Discharge Disposition Patient Disposition: 03 Discharge to SNF - Discharge Condition Condition: Good - Discharge Order Discharge Orders: Discharge Order (Routine); Ordered 06/11/18 Ordered By: Tomas Sena - Discharge Details Anticipated Discharge Date: 06/11/18 Discharge Comment: Okay to discharge to [facility] facility once arrangements made by case management - Physicians Team Primary Care Provider: Annabel Gamboa Attending Provider: Sherin Cope Other Providers: Dave Acosta ; Yordy Szymanski DO ; Marga Culp MD ; Joaquina Livingston MD ; Matias Madrigal,Agency
[2018-06-11 16:07] VITALS: BP 102/58; PULSE 98; TEMP 97.9; O2SAT 93
--- NOTE | 2018-06-11 19:01 | P.PNGI ---
Subjective Interval history: Patient laying in bed comfortably, ready to go home, denies any any more abdominal discomfort, had bowel movements and passing gas Physical Exam Vital signs: Vital Signs 06/10/18 22:58 06/11/18 00:00 06/11/18 08:00 Temperature 97.1 F L 97.2 F L 96.2 F L Pulse Rate 98 H 95 H 90 Respiratory Rate 16 16 18 Blood Pressure 102/56 L 114/55 L 122/59 L Pulse Oximetry 94 L 90 L 92 L 06/11/18 12:00 06/11/18 16:00 Temperature 98.0 F 97.9 F Pulse Rate 101 H 98 H Respiratory Rate 18 18 Blood Pressure 112/52 L 102/58 L Pulse Oximetry 94 L 93 L Intake & Output 06/10/18 06/11/18 06/11/18 18:59 06:59 18:59 Intake Total 100 / 100 Output Total 450 / 450 Balance -450 / -450 100 / 100 Weight 64 kg Intake: Oral 100 / 100 Output: Urine 200 / 200 Urine Amount (Catheter) 250 / 250 Indwelling Urethral Catheter 250 / 250 Other: Date of Last Bowel Movement 06/09/18 06/11/18 06/11/18 # Bowel Movements 2 2 - Constitutional no acute distress - Routine HEENT Exam Head: Present: normocephalic, tenderness of temporal artery Eye: Present: EOMI ENT: Present: mucous membranes moist - Routine Neck Exam Present: supple - Routine Respiratory Exam Present: CTA bilaterally - Routine Cardiovascular Exam Present: RRR, S1, S2 - Routine Abdominal Exam Present: soft, normoactive bowel sounds - Urinary Catheter Management Indwelling Urethral Catheter Cath placed during this visit: yes, but has since been removed by the nurse Reason for continuing: Decision to DC catheter Insertion date: 06/04/18 Insertion time: 08:22 Removal date: 06/10/18 Removal time: 12:00 Straight Cath placed during this visit: yes, but has since been removed by the nurse Reason for continuing: Acute urinary retention Insertion date: 06/04/18 Insertion time: 15:00 Removal date: 06/04/18 Removal time: 02:35 Results - Labs CBC & Chem 7: 06/11/18 05:50 06/11/18 05:50 Laboratory Results - last 24 hr 10/24/18 10/24/18 05:50 05:50 CBC w Diff Auto diff final WBC 4.8 RBC 3.31 L Hgb 9.9 L Hct 30.6 L MCV 92.5 MCH 30.1 MCHC 32.5 RDW 16.0 Plt Count 225 MPV 8.5 Neut % (Auto) 67.0 Lymph % (Auto) 11.1 [place] % (Auto) 13.1 H Eos % (Auto) 8.5 H Baso % (Auto) 0.3 Neut # (Auto) 3.3 Lymph # (Auto) 0.5 L [place] # (Auto) 0.6 Eos # (Auto) 0.4 Baso # (Auto) 0.0 WBC Differential . Differential Comment . Sodium 146 H Potassium 3.3 L Chloride 112 H Carbon Dioxide 23.1 Anion Gap 11 BUN 23 H Creatinine 1.90 H Estimated GFR 25 L Random Glucose 80 Calcium 7.9 L - Imaging Impressions Abdomen X-Ray 06/11/18 10:27 CONCLUSION: Mild overall improvement of the bowel gas pattern compared to the prior study. There has been a mild reduction in the size of the air-filled dilatation of the colon. Otherwise, no other significant changes are demonstrated. - Procedures none Assessment and Plan - Plan Seen and examined, patient is doing much better, she had Gastrografin enema with bowel movement, she has no abdominal pain at this time, Patient was instructed to avoid pain medication as much as possible she is aware of that, patient will be transferring to rehab facility
== END 2018-06-11 18:53 ==
LOC: PHED 07:38 → PHEDA 07:38 → PH3 15:07
PROVIDERS: ADMIT Internal Medicine; ATTEND Internal Medicine

== ENCOUNTER 2018-06-19 14:41 | Inpatient (IN) ==
--- NOTE | 2018-06-19 15:38 | ED ---
HPI General Chief Complaint: Shortness of Breath/Dyspnea Stated Complaint: SOB Time Seen by Provider: 06/19/18 15:11 History of Present Illness The patient was seen and examined in the presence of the nurse. This patient is sent over from the long term for shortness of breath. Duration is 2 days. Severity is moderate. She has history of COPD and uses inhaler as needed. She denies cough or chest pain or fever. She has had some congestion and wheezing. Patient is wheelchair-bound and getting physical therapy. Severity is moderate. No alleviating factors. No exacerbating factors. Related Data Home Medications Medication Instructions Recorded Confirmed alendronate 70 mg PO QWEEK 06/02/18 06/19/18 anastrozole 1 mg PO DAILY 06/02/18 06/19/18 aspirin [Aspirin Low Dose] 81 mg PO DAILY 06/02/18 06/19/18 cinnamon bark [Cinnamon] 500 mg PO DAILY 06/02/18 06/19/18 diltiazem HCl 120 mg PO DAILY 06/02/18 06/19/18 magnesium 250 mg PO DAILY 06/02/18 06/19/18 omeprazole 20 mg PO DAILY 06/02/18 06/19/18 tiotropium bromide [Spiriva with 1 cap INHALATION DAILY 06/02/18 06/19/18 HandiHaler] fluticasone-salmeterol [Advair 1 inh INHALATION Q12H 06/19/18 06/19/18 Diskus] magnesium citrate [Citroma] 296 ml PO DAILY PRN 06/19/18 06/19/18 magnesium hydroxide [Milk of 30 ml PO DAILY PRN 06/19/18 06/19/18 Magnesia] sodium phosphates [Enema 118 ml [place] DAILY PRN 06/19/18 06/19/18 Disposable] Previous Rx's Medication Instructions Recorded acetaminophen 650 mg PO Q4H PRN tab 06/11/18 alum-mag hydroxide-simeth [Mag-Al 30 ml PO Q6H PRN ml 06/11/18 Plus] bisacodyl [Bisac-Evac] 10 mg NJ DAILY PRN ea 06/11/18 megestrol 40 mg PO BID tab 06/11/18 tamsulosin 0.4 mg PO DAILY #0 cap 06/11/18 Allergies Allergy/AdvReac Type Severity Reaction Status Date / Time amoxicillin Allergy Intermediate NAUSEA/CRAM Verified 06/02/18 07:54 PING/VOMITI NG Review of Systems ROS: all other systems reviewed are negative [facility] Family History Family History Mother Hypertension Hemorrhagic stroke Father Hypertension Hemorrhagic stroke Social History Social History Substance History: No History of Abuse Second Hand Smoke Exposure: No Smoking Status: Former smoker Tobacco Type: Cigarettes years: 100 How Often Do You Have a Drink Containing Alcohol: 4 or more times a week Recent Travel in [facility] within the Last 8 Weeks: No Recent Out of Country Travel within the Last 8 Weeks: No Immunization History Tetanus Immunization: <5 Years Exam Narrative Exam Narrative: GENERAL: Pleasant elderly well-developed patient with shortness of breath . SKIN: Focused skin assessment reveals no rash and nodules. Skin is Warm and dry. HEAD: Atraumatic. Normocephalic. EYES: Pupils equal and round. No scleral icterus. No injection or drainage. ENT: No nasal bleeding or discharge. Mucous membranes pink and moist. NECK: Trachea midline. No JVD. CARDIOVASCULAR: Regular rate and rhythm. No murmur appreciated. RESPIRATORY: Positive accessory muscle use. Diminished breath sounds on the left side. There are sparse crackles on the left side. There is some expiratory wheezing. GASTROINTESTINAL: Abdomen soft, non-tender, nondistended. Hepatic and splenic margins not palpable. MUSCULOSKELETAL: No obvious deformities. No clubbing. No cyanosis. No edema. NEUROLOGICAL: Awake and alert. No obvious cranial nerve deficits. Motor grossly within normal limits. Normal speech. PSYCHIATRIC: Appropriate mood and affect; insight and judgment normal. Course Initial Documented Vital Signs Temperature 98.3 F 06/19/18 15:00 Pulse Rate 90 06/19/18 15:00 Respiratory Rate 30 H 06/19/18 15:00 Blood Pressure 117/58 L 06/19/18 15:00 Pulse Oximetry 94 L 06/19/18 15:00 Last Documented Vital Signs Temperature 98.3 F 06/19/18 15:00 Pulse Rate 93 H 06/19/18 16:37 Respiratory Rate 25 H 06/19/18 16:37 Blood Pressure 121/56 L 06/19/18 16:37 Pulse Oximetry 96 06/19/18 16:37 Medical Decision Making MDM Narrative Medical decision making narrative: This is an 82-year-old long term patient sent here for shortness of breath. I have ordered a workup to include labs and EKG and chest x-ray. We had a lengthy discussion about CODE STATUS. She wishes to be DO NOT RESUSCITATE. I have filled out the form. Chest x-ray shows a moderate-sized left pleural effusion. Patient is dyspneic. I reviewed with the hospitalist who will admit. Labs are reviewed. There are some abnormalities with electrolytes. Medical Screen Exam Complete: Yes Emergency Medical Condition: Yes Differential Diagnosis Differential Diagnosis: COPD, pneumonia, pneumothorax, pleural effusion Medical Records Medical records reviewed: Yes I reviewed the patient's medical records. Lab Data Lab results reviewed: Yes I reviewed the patient's lab results. Lab results narrative: Patient has anemia and hypernatremia and minor hypokalemia and renal insufficiency Result diagrams: 06/19/18 15:40 06/19/18 15:40 Lab Results 06/19/18 06/19/18 Range/Units 15:40 15:40 WBC 11.7 H (4.0-11.0) th/mm3 RBC 3.30 L (4.00-5.30) mil/mm3 Hgb 10.1 L (11.6-15.3) gm/dL Hct 30.0 L (35.0-46.0) % MCV 90.9 (80.0-100.0) fL MCH 30.6 (27.0-34.0) pg MCHC 33.6 (32.0-36.0) % RDW 17.1 (11.6-17.2) % Plt Count 323 D (150-450) th/mm3 MPV 9.0 (7.0-11.0) fL Prelim Diff (Auto) Slide review pending Neut % (Auto) 83.2 H (16.0-70.0) % Lymph % (Auto) 7.3 L (9.0-44.0) % [place] % (Auto) 7.2 (0.0-8.0) % Eos % (Auto) 1.5 (0.0-4.0) % Baso % (Auto) 0.8 (0.0-2.0) % Neut # (Auto) 9.7 H (1.8-7.7) th/mm3 Lymph # (Auto) 0.9 L (1.0-4.8) th/mm3 [place] # (Auto) 0.8 (0.0-0.9) th/mm3 Eos # (Auto) 0.2 (0.0-0.4) th/mm3 Baso # (Auto) 0.1 (0.0-0.2) th/mm3 WBC Differential . Diff Scan Auto diff confirmed Differential Comment . Platelet Estimate Normal (Normal) Platelet Morphology Normal (Normal) Ovalocytes 1+ H (None) Sodium 148 H (136-145) meq/L Potassium 3.4 L (3.5-5.1) meq/L Chloride 114 H (98-107) meq/L Carbon Dioxide 22.8 (21.0-32.0) meq/L Anion Gap 11 (5-15) meq/L BUN 13 (7-18) mg/dL Creatinine 1.14 H (0.50-1.00) mg/dL Estimated GFR 46 L (>89) mL/min Random Glucose 75 (74-106) mg/dL Calcium 7.6 L (8.5-10.1) mg/dL Total Bilirubin 1.0 (0.2-1.0) mg/dL AST 18 (15-37) U/L ALT 13 (10-53) U/L Alkaline Phosphatase 87 (45-117) U/L Total Protein 5.4 L (6.4-8.2) g/dL Albumin 2.6 L (3.4-5.0) g/dL Imaging Data Attestation: I personally reviewed and interpreted this imaging study as follows : My impression: Chest x-ray shows a moderate-sized left pleural effusion Radiologist's impression: Chest X-Ray 06/19/18 15:29 CONCLUSION: Moderate size left pleural effusion and atelectasis left mid-lung zone. ECG Data EKG Prior to Arrival: No Attestation: I personally reviewed and interpreted this ECG as follows: Prior ECG tracings: not available for review Interpretation: Patient is in a sinus rhythm with sinus arrhythmia. NJ interval and axis are normal. No ST elevation. Discharge Plan Discharge Disposition Patient Disposition: 30 Still Patient Discharge Details Diagnosis: Pleural effusion Physicians Team ED Provider: Tomas Mckeon Primary Care Provider: Annabel Gamboa Rxs /Orders / Referrals /Forms Prescriptions: No Action anastrozole 1 mg Tablet 1 mg PO DAILY RF: 0 alendronate 70 mg Tablet 70 mg PO QWEEK RF: 0 aspirin [Aspirin Low Dose] 81 mg Tablet,Delayed Release (Dr/Ec) 81 mg PO DAILY RF: 0 omeprazole 20 mg Capsule,Delayed Release(Dr/Ec) 20 mg PO DAILY RF: 0 diltiazem HCl 120 mg Capsule,Extended Release 24hr 120 mg PO DAILY RF: 0 magnesium 250 mg Tablet 250 mg PO DAILY RF: 0 tiotropium bromide [Spiriva with HandiHaler] 18 mcg Capsule, W/Inhalation Device 1 cap INHALATION DAILY RF: 0 cinnamon bark [Cinnamon] 500 mg Capsule 500 mg PO DAILY RF: 0 acetaminophen 325 mg Tablet 650 mg PO Q4H PRN (Reason: Temp > 100.4, pain 1-5) RF: 0 tamsulosin 0.4 mg Capsule 0.4 mg PO DAILY Qty: 0 RF: 0 bisacodyl [Bisac-Evac] 10 mg Suppository 10 mg NJ DAILY PRN (Reason: Severe Consitipation) RF: 0 megestrol 40 mg Tablet 40 mg PO BID RF: 0 alum-mag hydroxide-simeth [Mag-Al Plus] 200-200-20 mg/5 mL Suspension 30 ml PO Q6H PRN (Reason: Dyspepsia) RF: 0 fluticasone-salmeterol [Advair Diskus] 250-50 mcg/dose Blister With Device 1 inh INHALATION Q12H RF: 0 magnesium hydroxide [Milk of Magnesia] 400 mg/5 mL Suspension 30 ml PO DAILY PRN (Reason: Constipation) RF: 0 sodium phosphates [Enema Disposable] 19-7 gram/118 mL Enema 118 ml [place] DAILY PRN (Reason: Constipation) RF: 0 magnesium citrate [Citroma] Solution 296 ml PO DAILY PRN (Reason: Constipation) RF: 0 Discharge Interventions Interventions: Vital Signs Last Done: 06/19/18 16:37 Status ED Status: With Doctor
--- NOTE | 2018-06-19 15:49 | XR ---
EXAM DATE: 06/19/2018 3:46 PM EDT AGE/SEX: 82 years / Female INDICATIONS: Short of breath. CLINICAL DATA: This is the patient's initial encounter. Patient reports that signs and symptoms have been present for 1 day and indicates a pain score of 0/10. MEDICAL/SURGICAL HISTORY: . copd None. COMPARISON: [facility], CHEST SINGLE AP, 07/14/2017. . FINDINGS: There is some scarring in the midlung zone on the left. Small left pleural effusion. No visible pneum othorax. Right lung is grossly clear. Heart and mediastinum unremarkable. CONCLUSION: Moderate size left pleural effusion and atelectasis left mid-lung zone. Electronically signed by: Will Pope MD 06/19/2018 3:48 PM EDT
[2018-06-19 15:56] LABS: Baso # (Auto) 0.1 th/mm3 (0.0-0.2); Baso % (Auto) 0.8 % (0.0-2.0); Eos # (Auto) 0.2 th/mm3 (0.0-0.4); Eos % (Auto) 1.5 % (0.0-4.0); Hemoglobin 10.1 gm/dL (11.6-15.3); Lymph # (Auto) 0.9 th/mm3 (1.0-4.8); Lymph % (Auto) 7.3 % (9.0-44.0); Mean Corpuscular HGB Conc 33.6 % (32.0-36.0); Mean Corpuscular Hemoglobin 30.6 pg (27.0-34.0); Mean Corpuscular Volume 90.9 fL (80.0-100.0); Mono # (Auto) 0.8 th/mm3 (0.0-0.9); Mono % (Auto) 7.2 % (0.0-8.0); Neut # (Auto) 9.7 th/mm3 (1.8-7.7); Neut % (Auto) 83.2 % (16.0-70.0); Platelet Count 323 th/mm3 (150-450); Red Cell Distribution Width 17.1 % (11.6-17.2); White Blood Count 11.7 th/mm3 (4.0-11.0)
[2018-06-19 16:20] LABS: Alanine Aminotransferase 13 U/L (10-53); Albumin 2.6 g/dL (3.4-5.0); Anion Gap 11 meq/L (5-15); Aspartate Aminotransferase 18 U/L (15-37); Blood Urea Nitrogen 13 mg/dL (7-18); Calcium 7.6 mg/dL (8.5-10.1); Carbon Dioxide 22.8 meq/L (21.0-32.0); Chloride 114 meq/L (98-107); Glomerular Filtration Rate 46 mL/min (>89); Glucose,Random 75 mg/dL (74-106); Potassium 3.4 meq/L (3.5-5.1); Sodium 148 meq/L (136-145)
[2018-06-19 16:22] LABS: Alkaline Phosphatase 87 U/L (45-117); Total Protein 5.4 g/dL (6.4-8.2)
[2018-06-19 16:29] LABS: Ovalocytes 1+
[2018-06-19 16:30] LABS: Platelet Estimate Normal (Normal); Platelet Morphology Normal (Normal)
--- NOTE | 2018-06-19 19:01 | P.HP ---
History of Present Illness Primary Care Physician: Annabel Gamboa MD History of Present Illness: 82-year-old female with a history of COPD, hypertension, breast cancer, recent UTI, recent ileus presents to the ER after acute onset of shortness of breath during her rehab exercise at her rehab facility. ER workup reveals a left side moderate pulmonary effusion with diminished breath sounds on exam. Exam and effusion are however somewhat disproportionate compared to the tachypnea and shortness of breath she is experiencing. She reports that approximately 1 week ago her right leg was 3 times the size of normal and her left leg was approximately twice normal. Both legs have since reduced and there is edema, left leg has returned to normal, right leg is still somewhat edematous. She was recently admitted for 9 days following urinary tract infection that had an impact on her kidneys and resulted in ileus which resolved slowly. During that time she states she used her SCD hose intermittently. She was discharged from the hospital to rehab where she remained 1 week prior to today. She denies any fevers, denies slow onset of shortness of breath, denies cough. She denies chest pain, denies syncope, denies diaphoresis, denies history of cardiac arrhythmia. Review of Systems All other systems reviewed negative except as stated in HPI PMFSH - History History Provided By: Patient - Medical History Medical History: Medical History (Last Reviewed 06/19/18 @ 14:53 by Mague Ball) Back pain Benign neoplasm of colon Breast cancer, right COPD (chronic obstructive pulmonary disease) Cataract Cervicalgia Glaucoma HTN (hypertension) History of radiation therapy Hyperlipidemia Osteoporosis - Surgical History Surgical History: Surgical History (Last Reviewed 06/19/18 @ 14:53 by Mague Ball) History of hysterectomy (Acute) History of appendectomy Previous back surgery - Family History Family History: Family History (Last Updated 06/05/18 @ 10:48 by MARINA Delgado) Mother Hypertension Hemorrhagic stroke Father Hypertension Hemorrhagic stroke - Tobacco History Second Hand Smoke Exposure: No Smoking Status: Former smoker Tobacco Type: Cigarettes years: 100 - Alcohol History How Often Do You Have a Drink Containing Alcohol: 4 or more times a week - Substance Use History Substance History: No History of Abuse - Travel History Recent Travel in the [place] Within the Last 8 Weeks: No Recent Travel Out of the Country Within the Last 8 Weeks: No - Immunization History Tetanus Immunization: <5 Years Medications and Allergies Active Medications: Active Medications Acetaminophen (Tylenol) 650 mg PO Q4H PRN PRN Reason: Temp > 100.4 Albuterol (Duoneb Neb (Prn)) 1 ampul NEB Q2HR NEB PRN PRN Reason: WHEEZING Enoxaparin Sodium (Lovenox Inj) 40 mg SQ Q24H ANDREA Ondansetron HCl (Zofran Inj) 4 mg IV.PUSH Q6H PRN PRN Reason: NAUSEA OR VOMITING Sennosides (Senokot) 17.2 mg PO Q12H PRN PRN Reason: Moderate Constipation Allergies Allergy/AdvReac Type Severity Reaction Status Date / Time amoxicillin Allergy Intermediate NAUSEA/CRAM Verified 06/02/18 07:54 PING/VOMITI NG Home Medications Medication Instructions Recorded Confirmed Type alendronate 70 mg PO QWEEK 06/02/18 06/19/18 History anastrozole 1 mg PO DAILY 06/02/18 06/19/18 History aspirin [Aspirin Low Dose] 81 mg PO DAILY 06/02/18 06/19/18 History cinnamon bark [Cinnamon] 500 mg PO DAILY 06/02/18 06/19/18 History diltiazem HCl 120 mg PO DAILY 06/02/18 06/19/18 History magnesium 250 mg PO DAILY 06/02/18 06/19/18 History omeprazole 20 mg PO DAILY 06/02/18 06/19/18 History tiotropium bromide [Spiriva with 1 cap INHALATION DAILY 06/02/18 06/19/18 History HandiHaler] fluticasone-salmeterol [Advair 1 inh INHALATION Q12H 06/19/18 06/19/18 History Diskus] magnesium citrate [Citroma] 296 ml PO DAILY PRN 06/19/18 06/19/18 History magnesium hydroxide [Milk of 30 ml PO DAILY PRN 06/19/18 06/19/18 History Magnesia] sodium phosphates [Enema 118 ml [place] DAILY PRN 06/19/18 06/19/18 History Disposable] Exam Vital signs: Vital Signs 06/19/18 15:00 06/19/18 15:29 06/19/18 16:07 Temperature 98.3 F Pulse Rate 90 85 Respiratory Rate 30 H 20 Blood Pressure 117/58 L Pulse Oximetry 94 L 96 06/19/18 16:08 06/19/18 16:26 06/19/18 16:37 Temperature Pulse Rate 90 93 H Respiratory Rate 20 25 H Blood Pressure 121/56 L Pulse Oximetry 99 96 Intake & Output 06/18/18 06/19/18 06/19/18 18:59 06:59 18:59 Weight 61.235 kg Narrative: GENERAL: AAOx3, tachypneic, moderately distressed, adequate nutrition SKIN: Warm and dry, no rashes. HEAD: Atraumatic. Normocephalic. EYES: Pupils equal, round, reactive to light. No scleral icterus. No injection or drainage. ENT: No nasal bleeding or discharge. Moist mucous membranes. Nonerythematous oropharynx. NECK: Trachea midline. No JVD. Thyroid size within normal limits. CARDIOVASCULAR: Regular rate and rhythm. No murmur, no gallops, no rubs. RESPIRATORY: Moderately diminished left lung base, right lung base with mild atelectasis. No accessory muscle use. GASTROINTESTINAL: Abdomen soft, non-tender, nondistended, normal active bowel sounds. Hepatic and splenic margins not palpable. MUSCULOSKELETAL: Extremities without clubbing or cyanosis. No obvious deformities. +1 edema right lower extremity, left lower extremity normal NEUROLOGICAL: Awake and alert. No obvious cranial nerve deficits. Motor grossly within normal limits. No focal deficits. Five out of 5 muscle strength in the arms and legs. Normal speech. PSYCHIATRIC: Appropriate mood and affect; insight and judgment normal. Results - Labs CBC & Chem 7: 06/19/18 15:40 06/19/18 15:40 Labs: Laboratory Results - last 24 hr 06/19/18 06/19/18 15:40 15:40 WBC 11.7 H RBC 3.30 L Hgb 10.1 L Hct 30.0 L MCV 90.9 MCH 30.6 MCHC 33.6 RDW 17.1 Plt Count 323 D MPV 9.0 Prelim Diff (Auto) Slide review pending Neut % (Auto) 83.2 H Lymph % (Auto) 7.3 L [place] % (Auto) 7.2 Eos % (Auto) 1.5 Baso % (Auto) 0.8 Neut # (Auto) 9.7 H Lymph # (Auto) 0.9 L [place] # (Auto) 0.8 Eos # (Auto) 0.2 Baso # (Auto) 0.1 WBC Differential . Diff Scan Auto diff confirmed Differential Comment . Platelet Estimate Normal Platelet Morphology Normal Ovalocytes 1+ H Sodium 148 H Potassium 3.4 L Chloride 114 H Carbon Dioxide 22.8 Anion Gap 11 BUN 13 Creatinine 1.14 H Estimated GFR 46 L Random Glucose 75 Calcium 7.6 L Total Bilirubin 1.0 AST 18 ALT 13 Alkaline Phosphatase 87 Total Protein 5.4 L Albumin 2.6 L - Imaging Impressions Chest X-Ray 06/19/18 15:29 CONCLUSION: Moderate size left pleural effusion and atelectasis left mid-lung zone. Caprini VTE Risk Assessment Caprini VTE Risk Assessment: Moderate/High Risk (score >= 2) Caprini Risk Assessment Model: Point Value = 1 Point Value = 2 Point Value = 3 Point Value = 5 Age 41-60 Minor surgery BMI > 25 kg/m2 Swollen legs Varicose veins or History of unexplained or recurrent spontaneous Oral contraceptives or hormone replacement Sepsis (< 1 month) Serious lung disease, including pneumonia (< 1 month) Abnormal pulmonary function Acute myocardial infarction Congestive heart failure (< 1 month) History of inflammatory bowel disease Medical patient at bed rest Age 61-74 Arthroscopic surgery Major open surgery (> 45 min) Laparoscopic surgery (> 45 min) Malignancy Confined to bed (> 72 hours) Immobilizing plaster cast Central venous access Age >= 75 History of VTE Family history of VTE Factor V Leiden Prothrombin [id number] Lupus anticoagulant Anticardiolipin antibodies Elevated serum homocysteine Heparin-induced thrombocytopenia Other congenital or acquired thrombophilia Stroke (< 1 month) Elective arthroplasty Hip, pelvis, or leg fracture Acute spinal cord injury (< 1 month) Prophylaxis Regimen: Total Risk Factor Score Risk Level Prophylaxis Regimen 0-1 Low Early ambulation 2 Moderate Order ONE of the following: *Sequential Compression Device (SCD) *Heparin 5000 units SQ BID 3-4 Higher Order ONE of the following medications: *Heparin 5000 units SQ TID *Enoxaparin/Lovenox 40 mg SQ daily (WT < 150 kg, CrCl > 30 mL/min) *Enoxaparin/Lovenox 30 mg SQ daily (WT < 150 kg, CrCl > 10-29 mL/min) *Enoxaparin/Lovenox 30 mg SQ BID (WT < 150 kg, CrCl > 30 mL/min) AND/OR *Sequential Compression Device (SCD) 5 or more Highest Order ONE of the following medications: *Heparin 5000 units SQ TID (Preferred with Epidurals) *Enoxaparin/Lovenox 40 mg SQ daily (WT < 150 kg, CrCl > 30 mL/min) *Enoxaparin/Lovenox 30 mg SQ daily (WT < 150 kg, CrCl > 10-29 mL/min) *Enoxaparin/Lovenox 30 mg SQ BID (WT < 150 kg, CrCl > 30 mL/min) AND *Sequential Compression Device (SCD) Assessment and Plan - Plan Acute onset of shortness of breath Onset was during rehab, previously had very edematous right leg Her lung exam is not consistent with a COPD flareup, though she has a history of COPD, quit smoking 17 years ago Beginning workup for DVT with CTA of chest, further workup when pulmonary embolism ruled out Consider protracted history of smoking and risk of lung cancer, CTA should give a good view of lung tissue to rule out mass 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
[2018-06-19] MEDS ORDERED: Enoxaparin Inj 40 MG/0.4 ML Syringe SQ SCH (20:00)
--- NOTE | 2018-06-19 20:37 | CT ---
EXAM DATE: 06/19/2018 8:27 PM EDT AGE/SEX: 82 years / Female INDICATIONS: Shortness of breath. CLINICAL DATA: This is the patient's initial encounter. Patient reports that signs and symptoms have been present for 1 day and indicates a pain score of 0/10. MEDICAL/SURGICAL HISTORY: Carcinoma, breast. Hypertension. Chronic obstructive pulmonary disease. None. RADIATION DOSE: 14.08 CTDI (mGy) COMPARISON: No prior exams available for comparison. TECHNIQUE: Volumetric scanning was performed using a multi-row detector CT scanner during bolus infu sherrie of 70 ml Omnipaque 350 (iohexol) nonionic water-soluble contrast as a single exam dose. The reid a was post processed with a variety of visualization algorithms including full volume maximum intensi ty projection and sliding thin slab reformation. Using automated exposure control and adjustment of the mA and/or kV according to patient size, radiation dose was kept as low as reasonably achievable t o obtain optimal diagnostic quality images. DICOM format image data is available electronically for review and comparison. FINDINGS: Examination is suboptimal. Patient has very friable veins and contrast extravasated during the inject ion. There is some minimal contrast in the central pulmonary arteries without evidence for central fi lling defect. Peripheral vessels are not well evaluated. However, there are moderate bilateral pleura l effusions with compressive atelectasis. There is also underlying emphysema. No axillary or hilar ad enopathy. Borderline enlarged mediastinal lymph nodes. No significant pericardial effusion. No acute findings in the upper abdomen. CONCLUSION: 1. Suboptimal exam with minimal contrast as above. No large central filling defects. 2. Moderate bilateral pleural effusions with compressive atelectasis. Emphysema. Also linear atelect asis left upper lobe posteriorly. Electronically signed by: Cedrick Sullivan MD 06/19/2018 8:36 PM EDT
[2018-06-20 08:56] LABS: Hematocrit 24.7 % (35.0-46.0); Hemoglobin 8.5 gm/dL (11.6-15.3); Mean Corpuscular HGB Conc 34.5 % (32.0-36.0); Mean Corpuscular Hemoglobin 31.6 pg (27.0-34.0); Mean Corpuscular Volume 91.5 fL (80.0-100.0); Mean Platelet Volume 8.4 fL (7.0-11.0); Platelet Count 301 th/mm3 (150-450); Red Cell Distribution Width 17.4 % (11.6-17.2); White Blood Count 8.8 th/mm3 (4.0-11.0)
[2018-06-20 09:32] LABS: Calcium 7.3 mg/dL (8.5-10.1); Carbon Dioxide 21.8 meq/L (21.0-32.0); Potassium 3.6 meq/L (3.5-5.1)
[2018-06-20 09:52] LABS: Total Protein 4.8 g/dL (6.4-8.2)
[2018-06-20 13:42] LABS: Activated Partial Thrombo Time 30.1 sec (23.4-31.7); INR 1.2 Ratio; Prothrombin Time 11.9 sec (9.8-11.6)
--- NOTE | 2018-06-20 14:52 | P.PNIM ---
Subjective Interval history: She reports her breathing is not worse however not better. No active pain at this time. Physical Exam Vital signs: Vital Signs 06/19/18 15:00 06/19/18 15:29 06/19/18 16:07 Temperature 98.3 F Pulse Rate 90 85 Respiratory Rate 30 H 20 Blood Pressure 117/58 L Pulse Oximetry 94 L 96 06/19/18 16:08 06/19/18 16:26 06/19/18 16:37 Temperature Pulse Rate 90 93 H Respiratory Rate 20 25 H Blood Pressure 121/56 L Pulse Oximetry 99 96 06/19/18 20:00 06/19/18 21:16 06/20/18 00:00 Temperature 97.8 F 97.9 F Pulse Rate 100 H 105 H Respiratory Rate 21 18 Blood Pressure 152/66 H 148/58 H Pulse Oximetry 94 L 99 96 06/20/18 02:00 06/20/18 04:00 06/20/18 08:00 Temperature 97.4 F L 97.3 F L Pulse Rate 101 H 88 106 H Respiratory Rate 16 16 Blood Pressure 152/68 H Pulse Oximetry 93 L 96 06/20/18 12:00 06/20/18 12:34 Temperature 98.2 F Pulse Rate 113 H Respiratory Rate 16 Blood Pressure Pulse Oximetry 93 L 96 Intake & Output 06/19/18 06/20/18 06/20/18 18:59 06:59 18:59 Intake Total 480 / 480 Balance 480 / 480 Weight 61.235 kg 67 kg Intake: Oral 480 / 480 Other: # Incontinent Voids 2 Weight On Admission 67 kg Narrative: GENERAL: This is a well-nourished, well-developed patient, in no apparent distress. CARDIOVASCULAR: Regular rate and rhythm RESPIRATORY: Diminished breath sounds bilateral bases GASTROINTESTINAL: Abdomen soft, non-tender, nondistended. Normal active bowel sounds MUSCULOSKELETAL: Extremities without clubbing, cyanosis, trace edema NEURO: Alert & Oriented x4 to person, place, time, situation. Moves all ext x4 Results - Labs CBC & Chem 7: 06/20/18 08:26 06/20/18 08:26 Laboratory Results - last 24 hr 06/19/18 06/19/18 06/20/18 15:40 15:40 08:26 WBC 11.7 H 8.8 RBC 3.30 L 2.70 L Hgb 10.1 L 8.5 L Hct 30.0 L 24.7 L MCV 90.9 91.5 MCH 30.6 31.6 MCHC 33.6 34.5 RDW 17.1 17.4 H Plt Count 323 D 301 MPV 9.0 8.4 Prelim Diff (Auto) Slide review pending Neut % (Auto) 83.2 H Lymph % (Auto) 7.3 L [place] % (Auto) 7.2 Eos % (Auto) 1.5 Baso % (Auto) 0.8 Neut # (Auto) 9.7 H Lymph # (Auto) 0.9 L [place] # (Auto) 0.8 Eos # (Auto) 0.2 Baso # (Auto) 0.1 WBC Differential . Diff Scan Auto diff confirmed Differential Comment . Platelet Estimate Normal Platelet Morphology Normal Ovalocytes 1+ H PT INR APTT Sodium 148 H Potassium 3.4 L Chloride 114 H Carbon Dioxide 22.8 Anion Gap 11 BUN 13 Creatinine 1.14 H Estimated GFR 46 L Random Glucose 75 Calcium 7.6 L Prot Corrected Calcium Total Bilirubin 1.0 AST 18 ALT 13 Alkaline Phosphatase 87 Total Protein 5.4 L Albumin 2.6 L 06/20/18 06/20/18 08:26 13:08 WBC RBC Hgb Hct MCV MCH MCHC RDW Plt Count MPV Prelim Diff (Auto) Neut % (Auto) Lymph % (Auto) [place] % (Auto) Eos % (Auto) Baso % (Auto) Neut # (Auto) Lymph # (Auto) [place] # (Auto) Eos # (Auto) Baso # (Auto) WBC Differential Diff Scan Differential Comment Platelet Estimate Platelet Morphology Ovalocytes PT 11.9 H INR 1.2 APTT 30.1 Sodium 147 H Potassium 3.6 Chloride 114 H Carbon Dioxide 21.8 Anion Gap 11 BUN 13 Creatinine 1.02 H Estimated GFR 52 L Random Glucose 84 Calcium 7.3 L* Prot Corrected Calcium 8.6 Total Bilirubin AST ALT Alkaline Phosphatase Total Protein 4.8 L D Albumin Microbiology 06/19/18 16:40 Nasal Wash Influenza Types A,B Antigen - Final Negative for FLU A and B antigen Infection due to influenza A or B cannot be ruled out since the antigen present in the sample may be below the detection limit of the test. - Imaging Impressions Chest CTA 06/19/18 00:00 CONCLUSION: 1. Suboptimal exam with minimal contrast as above. No large central filling defects. 2. Moderate bilateral pleural effusions with compressive atelectasis. Emphysema. Also linear atelectasis left upper lobe posteriorly. Chest X-Ray 06/19/18 15:29 CONCLUSION: Moderate size left pleural effusion and atelectasis left mid-lung zone. Assessment and Plan - Plan Acute onset of shortness of breath likely due to bilateral pleural effusion - CTA that revealed no PE with emphysematous changes and bilateral pleural effusion Obtain pulmonary consult Obtain a diagnostic and therapeutic thoracentesis for further workup evaluation including cytology as patient has a [id number] history of tobacco use Check 2D echo to rule out underlying congestive heart failure Dose of Lasix given today h/o COPD no acute exacerbation Continue duo nebs as needed, continue oxygen as needed Hypertension, chronic Well-controlled with current medications Continue home medications, diltiazem DVT Prophylaxis Lovenox on hold for thoracocentesis Discharge Planning: Home after workup completed and when clinically improved.
--- NOTE | 2018-06-20 16:00 | XR ---
EXAM DATE: 06/20/2018 3:52 PM EDT AGE/SEX: 82 years / Female INDICATIONS: Post left thoracentesis CLINICAL DATA: This is the patient's initial encounter. Patient reports that signs and symptoms have been present for 1 day and indicates a pain score of 0/10. MEDICAL/SURGICAL HISTORY: Chronic obstructive pulmonary disease. None. [place] [facility] [place]. [facility] [place]. . FINDINGS: Portable upright expiratory view of the chest demonstrates a normal-sized cardiac silhouette with aston cification of the aorta. EKG lines overlie the patient. There is hazy pleural-parenchymal opacity ove rlying the right lower lung zone. Subtle blunting is present at the left costophrenic angle. No pneum othorax is identified. CONCLUSION: 1. No pneumothorax following recent left thoracentesis. Left pleural effusion has significantly decr eased in size. 2. Stable opacity at the right base representing pleural effusion with associated volume loss and/or airspace consolidation. Electronically signed by: Francisco Mcallister MD 06/20/2018 3:58 PM EDT
[2018-06-20] MEDS: dilTIAZem CD 120 MG Capsule PO SCH (17:13)
[2018-06-20 17:58] LABS: RBC,Pleural Fluid 12 /mm3 (0-0)
[2018-06-20 18:10] LABS: Lymphocytes,Pleural Fluid 70 %; Monocytes,Pleural Fluid 10 %; Neutrophils,Pleural Fluid 10 %
--- NOTE | 2018-06-20 19:22 | ECG ---
Date Performed: 06/19/2018 Time Performed: 15:08:53 PTAGE: 82 years EKG: Sinus rhythm WITH OCCASIONAL SUPRAVENTRICULAR PREMATURE COMPLEXES LEFT BUNDLE BRANCH BLOCK Since the previous tra cing, no significant change noted ABNORMAL ECG PREVIOUS TRACING : 06/08/2018 14.59 DOCTOR: Chaitanya Chau Interpretating Date/Time 06/20/2018 19:20:58
--- NOTE | 2018-06-20 20:36 | MB ---
cc: Flaco Cha MD,Annabel Hartley MD DATE: 06/20/2018 HISTORY OF PRESENT ILLNESS: She had a workup done in the hospital, she had a CTA of the chest that did not show any pulmonary embolism. It showed moderate sized bilateral pleural effusion. Her CBC shows WBC count 8.8, hemoglobin 8.5, hematocrit 24.7, platelet count 301. Sodium 147, potassium 3.8, chloride 114, CO2 21, BUN 30, creatinine 1.02. The patient was found to have bilateral pleural effusions. She underwent left thoracentesis. ALLERGIES: SHE IS ALLERGIC TO AMOXICILLIN. SOCIAL HISTORY: She was before. Now she lives with her significant other for the last 17 years. She used to work. She is retired. She has history of smoking for 50 years, she quit 17 years ago. She drinks socially. REVIEW OF SYSTEMS: Normally she is up around and active, does not use any oxygen at home. No headache or dizziness. No seizure, stroke or epilepsy. Rate is stable. PHYSICAL EXAMINATION: GENERAL: Elderly female, mildly short of breath. VITAL SIGNS: Blood pressure 133/79, heart rate 88, respirations 18, temperature 98.7. HEENT: Pupils are equal and reactive. She has bilateral cataract surgery. Oral mucosa and nasal mucosa normal. NECK: Supple. JVP not raised. CHEST: Decreased breath sounds at the bases. HEART: S1, S2 normal. ABDOMEN: Soft, nondistended. Bowel sounds are present. EXTREMITIES: No edema. CENTRAL NERVOUS SYSTEM: She is alert, oriented x3. No focal deficits. PLAN: We will check the pleural fluid culture, cytology, and chemistry. Supplemental oxygen. Continue aerosol treatment, Symbicort twice a day. Lovenox for DVT prophylaxis. Further treatment will depend on the course in the hospital. Thank you Dr. Gamboa for this consult. MD JUDI Harris/sv/anahi , 07:49 PM , 07:57 PM NING
[2018-06-20] MEDS: Budesonide-Formoterol 160/4.5 MCG 6 GM Inhaler INH SCH (22:11)
[2018-06-21] MEDS: Acetaminophen 325 MG Tablet PO PRN ×2 (08:47→12:34)
[2018-06-21] MEDS: dilTIAZem CD 120 MG Capsule PO SCH (08:48)
[2018-06-21] MEDS: Pantoprazole Sodium 20 MG DR Tablet PO SCH (08:48)
[2018-06-21] MEDS: Budesonide-Formoterol 160/4.5 MCG 6 GM Inhaler INH SCH ×2 (09:00→20:33)
[2018-06-21] MEDS ORDERED: MAGNESIUM 250 MG PO SCH (09:00)
[2018-06-21 10:58] LABS: Baso # (Auto) 0.1 th/mm3 (0.0-0.2); Baso % (Auto) 1.1 % (0.0-2.0); Eos # (Auto) 0.3 th/mm3 (0.0-0.4); Eos % (Auto) 3.6 % (0.0-4.0); Hematocrit 26.4 % (35.0-46.0); Hemoglobin 8.9 gm/dL (11.6-15.3); Lymph # (Auto) 0.8 th/mm3 (1.0-4.8); Lymph % (Auto) 8.9 % (9.0-44.0); Mean Corpuscular HGB Conc 33.5 % (32.0-36.0); Mean Corpuscular Hemoglobin 30.9 pg (27.0-34.0); Mean Corpuscular Volume 92.2 fL (80.0-100.0); Mean Platelet Volume 8.7 fL (7.0-11.0); Mono # (Auto) 0.8 th/mm3 (0.0-0.9); Mono % (Auto) 9.1 % (0.0-8.0); Neut # (Auto) 6.9 th/mm3 (1.8-7.7); Neut % (Auto) 77.3 % (16.0-70.0); Platelet Count 338 th/mm3 (150-450); Red Blood Count 2.87 mil/mm3 (4.00-5.30); Red Cell Distribution Width 16.9 % (11.6-17.2); White Blood Count 8.9 th/mm3 (4.0-11.0)
[2018-06-21 11:36] LABS: Calcium 7.3 mg/dL (8.5-10.1); Potassium 3.4 meq/L (3.5-5.1)
--- NOTE | 2018-06-21 17:18 | P.PNIM ---
Subjective Interval history: Patient states she is feeling better and breathing easier following thoracentesis with removal of clear fluid. Final cultures and cytology are pending. Physical Exam Vital signs: Vital Signs 06/20/18 20:00 06/21/18 00:00 06/21/18 04:00 Temperature 97.8 F 97.9 F 97.9 F Pulse Rate 84 91 H 94 H Respiratory Rate 17 17 15 Blood Pressure 152/84 H 132/60 150/74 H Pulse Oximetry 95 98 95 06/21/18 09:00 06/21/18 12:00 06/21/18 12:22 Temperature Pulse Rate 91 H 82 Respiratory Rate Blood Pressure Pulse Oximetry 97 Intake & Output 06/20/18 06/21/18 06/21/18 18:59 06:59 18:59 Intake Total 240 / 240 680 / 680 Output Total 750 / 750 Balance 240 / 240 -70 / -70 Weight 67.8 kg Intake: Oral 240 / 240 680 / 680 Output: Urine 750 / 750 Other: # Incontinent Voids 1 # Urine Diapers 3 # Bowel Movements 0 Narrative: GENERAL: AAOx3, no acute distress, breathing easier SKIN: Warm and dry. No rashes HEAD: Atruamtic, normocephalic. EYES: No scleral icterus. No injection or drainage. ENT: Moist mucous membranes, patent nares, no erythema of oropharynx. NECK: Supple, trachea midline. No JVD or lymphadenopathy. Normal thyroid. CARDIOVASCULAR: Regular rate and rhythm. No murmurs, gallops, or rubs. RESPIRATORY: Atelectatic sounds in left base otherwise mostly clear in both lung cochran. No accessory muscle use. GASTROINTESTINAL: Abdomen soft, non-tender, nondistended, normal active bowel sounds MUSCULOSKELETAL: No cyanosis, or edema. NEURO: CN II-XII grossly intact, no focal deficits, no slurring of speech Results - Labs CBC & Chem 7: 06/21/18 10:10 06/21/18 10:10 Laboratory Results - last 24 hr 06/20/18 06/21/18 06/21/18 15:40 10:10 10:10 WBC 8.9 RBC 2.87 L Hgb 8.9 L Hct 26.4 L MCV 92.2 MCH 30.9 MCHC 33.5 RDW 16.9 Plt Count 338 MPV 8.7 Neut % (Auto) 77.3 H Lymph % (Auto) 8.9 L Graham % (Auto) 9.1 H Eos % (Auto) 3.6 Baso % (Auto) 1.1 Neut # (Auto) 6.9 Lymph # (Auto) 0.8 L Graham # (Auto) 0.8 Eos # (Auto) 0.3 Baso # (Auto) 0.1 WBC Differential . Differential Comment Auto diff final Sodium 144 Potassium 3.4 L Chloride 109 H Carbon Dioxide 26.0 Anion Gap 9 BUN 12 Creatinine 1.23 H Estimated GFR 42 L Random Glucose 111 H Calcium 7.3 L* Prot Corrected Calcium 8.5 Total Protein 5.0 L Pleural RBC 12 H Pleural Nuc Cells 89 H Pleural Neutrophils 10 Pleural Lymphocytes 70 Pleural Monocytes 10 Pleural Histocytes 10 Microbiology 06/20/18 15:40 Fluid - Pleural fluid Gram Stain - Final 06/20/18 15:40 Fluid - Pleural fluid Body Fluid Culture - Preliminary No growth in 24 hours Assessment and Plan - Plan Bilateral pleural effusion - CTA that revealed no PE with emphysematous changes and bilateral pleural effusion Pulmonology performed thoracentesis of left lung with symptomatic relief 2D echocardiogram still pending to rule out CHF Continue Lasix as needed h/o COPD no acute exacerbation Continue duo nebs as needed, continue oxygen as needed Hypertension, chronic Well-controlled with current medications Continue home medications, diltiazem DVT Prophylaxis Lovenox
--- NOTE | 2018-06-21 18:28 | P.PNPL ---
Subjective Interval history: 82 YOWF with COPD, pl eff,s/p TC Breathing much better Pl fluid transudate No CP Physical Exam Vital signs: Vital Signs 06/20/18 20:00 06/21/18 00:00 06/21/18 04:00 Temperature 97.8 F 97.9 F 97.9 F Pulse Rate 84 91 H 94 H Respiratory Rate 17 17 15 Blood Pressure 152/84 H 132/60 150/74 H Pulse Oximetry 95 98 95 06/21/18 09:00 06/21/18 12:00 06/21/18 12:22 Temperature Pulse Rate 91 H 82 Respiratory Rate Blood Pressure Pulse Oximetry 97 Intake & Output 06/20/18 06/21/18 06/21/18 18:59 06:59 18:59 Intake Total 240 / 240 680 / 680 Output Total 750 / 750 Balance 240 / 240 -70 / -70 Weight 67.8 kg Intake: Oral 240 / 240 680 / 680 Output: Urine 750 / 750 Other: # Incontinent Voids 1 # Urine Diapers 3 # Bowel Movements 0 GENERAL: Frail elderly WF, NAD SKIN: Warm and dry. HEAD: Normocephalic. EYES: No scleral icterus. No injection or drainage. NECK: Supple, trachea midline. No JVD or lymphadenopathy. CARDIOVASCULAR: Regular rate and rhythm without murmurs, gallops, or rubs. RESPIRATORY: Breath sounds equal bilaterally. No accessory muscle use. GASTROINTESTINAL: Abdomen soft, non-tender, nondistended. MUSCULOSKELETAL: No cyanosis, or edema. BACK: Nontender without obvious deformity. No CVA tenderness. Assessment and Plan - Plan Pleural effusion, s/p TC COPD HTN PLAN: Supplement 02 Wean off 02 if sat >90% Symbicort 2 puffs bid Aerosol nebs
[2018-06-22] MEDS: Acetaminophen 325 MG Tablet PO PRN ×4 (08:38→20:55)
[2018-06-22] MEDS: Pantoprazole Sodium 20 MG DR Tablet PO SCH (08:38)
[2018-06-22] MEDS: dilTIAZem CD 120 MG Capsule PO SCH (08:38)
[2018-06-22] MEDS: Budesonide-Formoterol 160/4.5 MCG 6 GM Inhaler INH SCH ×2 (08:38→20:15)
--- NOTE | 2018-06-22 10:04 | XR ---
EXAM DATE: 06/22/2018 9:57 AM EST AGE/SEX: 82 years / Female INDICATIONS: Dyspnea. CLINICAL DATA: This is the patient's subsequent encounter. Patient reports that signs and symptoms h ave been present for 1 day and indicates a pain score of 0/10. MEDICAL/SURGICAL HISTORY: Chronic obstructive pulmonary disease. None. COMPARISON: [facility] – [place]ST [place]PIRATION ONLY, 06/20/2018. . FINDINGS: Increasing opacity is identified in the right lung base. Left midlung atelectasis is more prominent. Heart and mediastinal structures are stable. Osseous structures appear intact. CONCLUSION: 1. Stable left lung following thoracentesis with no evidence of pneumothorax. 2. Persistent right basilar opacity characteristic of a pleural effusion. 3. Slightly more prominent left midlung atelectasis. Electronically signed by: Vamsi Morales MD 06/22/2018 10:02 AM EST
--- NOTE | 2018-06-22 15:31 | P.PNIM ---
Subjective Interval history: Clinically patient is feeling better still, repeat chest x-ray does show some worsening of small effusion of right base. Left effusion was drained via thoracentesis and remained stable. She is still oxygen dependent. Physical Exam Vital signs: Vital Signs 06/21/18 19:49 06/21/18 20:00 06/22/18 00:00 Temperature 98 F 97.5 F L Pulse Rate 88 83 81 Respiratory Rate 16 16 Blood Pressure 100/40 L 100/50 L Pulse Oximetry 99 95 06/22/18 04:00 06/22/18 08:00 06/22/18 09:00 Temperature 97.8 F 97.8 F Pulse Rate 76 97 H 93 H Respiratory Rate 16 18 Blood Pressure 103/44 L 125/55 L Pulse Oximetry 97 95 06/22/18 12:00 06/22/18 12:22 Temperature Pulse Rate 86 Respiratory Rate Blood Pressure Pulse Oximetry 96 Intake & Output 06/21/18 06/22/18 06/22/18 19:59 06:59 18:59 Intake Total Output Total Balance Weight Intake: Oral Output: Urine Other: # Incontinent Voids # Urine Diapers Date of Last Bowel Movement 06/19/18 # Bowel Movements Narrative: GENERAL: AAOx3, no acute distress, breathing easier SKIN: Warm and dry. No rashes HEAD: Atruamtic, normocephalic. EYES: No scleral icterus. No injection or drainage. ENT: Moist mucous membranes, patent nares, no erythema of oropharynx. NECK: Supple, trachea midline. No JVD or lymphadenopathy. Normal thyroid. CARDIOVASCULAR: Regular rate and rhythm. No murmurs, gallops, or rubs. RESPIRATORY: Atelectatic sounds in left base otherwise mostly clear in both lung cochran. No accessory muscle use. GASTROINTESTINAL: Abdomen soft, non-tender, nondistended, normal active bowel sounds MUSCULOSKELETAL: No cyanosis, or edema. NEURO: CN II-XII grossly intact, no focal deficits, no slurring of speech Results - Labs CBC & Chem 7: 06/21/18 10:10 06/21/18 10:10 Microbiology 06/20/18 15:40 Fluid - Pleural fluid Gram Stain - Final 06/20/18 15:40 Fluid - Pleural fluid Body Fluid Culture - Preliminary No growth in 48 hours - Imaging Impressions Chest X-Ray 06/22/18 00:00 CONCLUSION: 1. Stable left lung following thoracentesis with no evidence of pneumothorax. 2. Persistent right basilar opacity characteristic of a pleural effusion. 3. Slightly more prominent left midlung atelectasis. Assessment and Plan - Plan Bilateral pleural effusion CTA that revealed no PE with emphysematous changes and bilateral pleural effusion Pulmonology performed thoracentesis of left lung with symptomatic relief Right lung is now demonstrating some worsening on chest x-ray 2D echocardiogram pending to rule out CHF Continue Lasix as needed h/o COPD no acute exacerbation Continue duo nebs as needed, continue oxygen as needed Adding Solu-Medrol, single dose to address oxygen need Hypertension, chronic Well-controlled with current medications Continue home medications, diltiazem DVT Prophylaxis Lovenox
[2018-06-22] MEDS ORDERED: MethylPREDNISolone Sod Succinate Inj 40 MG/ML Vial IV.PUSH ONE (16:00)
--- NOTE | 2018-06-22 17:23 | P.PNPL ---
Subjective Interval history: 82 YOWF with COPD, pl eff,s/p TC Breathing much better Pl fluid transudate No CP Feels weak Was at [facility], not ambulating Physical Exam Vital signs: Vital Signs 06/21/18 19:49 06/21/18 20:00 06/22/18 00:00 Temperature 98 F 97.5 F L Pulse Rate 88 83 81 Respiratory Rate 16 16 Blood Pressure 100/40 L 100/50 L Pulse Oximetry 99 95 06/22/18 04:00 06/22/18 08:00 06/22/18 09:00 Temperature 97.8 F 97.8 F Pulse Rate 76 97 H 93 H Respiratory Rate 16 18 Blood Pressure 103/44 L 125/55 L Pulse Oximetry 97 95 06/22/18 12:00 06/22/18 12:22 Temperature Pulse Rate 86 Respiratory Rate Blood Pressure Pulse Oximetry 96 Intake & Output 06/21/18 06/22/18 06/22/18 19:59 06:59 18:59 Intake Total Output Total Balance Weight Intake: Oral Output: Urine Other: # Incontinent Voids # Urine Diapers Date of Last Bowel Movement 06/19/18 # Bowel Movements GENERAL: Elderly WF,NAD SKIN: Warm and dry. HEAD: Normocephalic. EYES: No scleral icterus. No injection or drainage. NECK: Supple, trachea midline. No JVD or lymphadenopathy. CARDIOVASCULAR: Regular rate and rhythm without murmurs, gallops, or rubs. RESPIRATORY: Breath sounds equal bilaterally. No accessory muscle use. GASTROINTESTINAL: Abdomen soft, non-tender, nondistended. MUSCULOSKELETAL: No cyanosis, or edema. BACK: Nontender without obvious deformity. No CVA tenderness. Assessment and Plan - Plan Pleural effusion, s/p TC COPD HTN Atelactesis PLAN: Supplement 02 Wean off 02 if sat >90% Symbicort 2 puffs bid Aerosol nebs DC Plans for rehab
[2018-06-23 07:56] LABS: Calcium 7.2 mg/dL (8.5-10.1); Carbon Dioxide 25.1 meq/L (21.0-32.0); Potassium 3.6 meq/L (3.5-5.1)
[2018-06-23 08:20] LABS: Total Protein 5.2 g/dL (6.4-8.2)
[2018-06-23] MEDS: Budesonide-Formoterol 160/4.5 MCG 6 GM Inhaler INH SCH ×2 (09:23→20:44)
[2018-06-23] MEDS: dilTIAZem CD 120 MG Capsule PO SCH (09:23)
[2018-06-23] MEDS: Pantoprazole Sodium 20 MG DR Tablet PO SCH (09:23)
--- NOTE | 2018-06-23 17:26 | ECHRPT ---
Indication: Shortnes of Breath CONCLUSIONS Normal left ventricular size. Moderate concentric left ventricular hypertrophy. The left ventricular systolic function is [id number] reduced with an estimated ejection fra ction in the range of 35-40%. Normal atrial septal thickness. BP: / HR: Rhythm: MEASUREMENTS (Male / Female) Normal Values Technical Quality:Fair 2D ECHO LV Diastolic Diameter PLAX 4.3 cm 4.2 - 5.9 / 3.9 - 5.3 cm LV Systolic Diameter PLAX 3.5 cm IVS Diastolic Thickness 1.3 cm 0.6 - 1.0 / 0.6 - 0.9 cm LVPW Diastolic Thickness 1.3 cm 0.6 - 1.0 / 0.6 - 0.9 cm LV Relative Wall Thickness 0.6 RV Internal Dim ED PLAX 3.0 cm LVOT Diameter 2.1 cm Aortic Root Diameter 3.0 cm LA Systolic Diameter LX 3.0 cm 3.0 - 4.0 / 2.7 - 3.8 cm M-MODE AV Cusp Separation MM 2.2 cm DOPPLER AV Peak Velocity 147.0 cm/s AV Peak Gradient 8.6 mmHg LVOT Peak Velocity 105.0 cm/s LVOT Peak Gradient 4.4 mmHg AV Area Cont Eq pk 2.5 cm Mitral E Point Velocity 86.9 cm/s Mitral A Point Velocity 91.8 cm/s Mitral E to A Ratio 0.9 LV E' Lateral Velocity 9.8 cm/s Mitral E to LV E' Lateral Ratio 8.8 LV E' Septal Velocity 5.9 cm/s Mitral E to LV E' Septal Ratio 14.9 TR Peak Velocity 314.0 cm/s TR Peak Gradient 39.4 mmHg Right Atrial Pressure 10.0 mmHg Pulmonary Artery Systolic Pressu 49.4 mmHg Right Ventricular Systolic Press 49.4 mmHg PV Peak Velocity 111.0 cm/s PV Peak Gradient 4.9 mmHg FINDINGS LEFT VENTRICLE Normal left ventricular size. Moderate concentric left ventricular hypertrophy. The left ventricular systolic function is icbrraas-ug-xozimnu reduced with an estimated ejection fra ction in the range of 35-40%. RIGHT VENTRICLE Normal right ventricular size and systolic function. LEFT ATRIUM The left atrial size is normal. RIGHT ATRIUM The right atrial size is normal. ATRIAL SEPTUM Normal atrial septal thickness. AORTA The aortic root and proximal ascending aorta are normal in size on limited imaging. MITRAL VALVE Structurally normal mitral valve. AORTIC VALVE Trileaflet aortic valve. TRICUSPID VALVE Structurally normal tricuspid valve. VESSELS The inferior vena cava is normal in size. PERICARDIUM No pericardial effusion. Dylon Kulkarni MD, FACC, [facility] (Electronically Signed) Final Date:23 June 2018 17:25
--- NOTE | 2018-06-23 18:10 | P.PNIM ---
Subjective Interval history: Patient has weaned herself off of oxygen and is breathing comfortably on room air. She received a dose of Lasix yesterday which seemed to have improve her breathing. She has no new complaints and is looking forward to going home soon. Physical Exam Vital signs: Vital Signs 06/22/18 20:00 06/23/18 00:00 06/23/18 04:00 Temperature 97.9 F 97.8 F 97.9 F Pulse Rate 94 H 83 83 Respiratory Rate 18 18 20 Blood Pressure 113/54 L 111/58 L 112/57 L Pulse Oximetry 94 L 94 L 93 L 06/23/18 08:00 06/23/18 09:00 06/23/18 12:00 Temperature 97.7 F Pulse Rate 87 92 H 97 H Respiratory Rate 18 Blood Pressure 119/61 Pulse Oximetry 93 L 06/23/18 16:00 Temperature Pulse Rate 90 Respiratory Rate Blood Pressure Pulse Oximetry Intake & Output 06/22/18 06/23/18 06/23/18 18:59 06:59 18:59 Intake Total 720 / 720 280 / 280 Output Total 1100 / 1100 1000 / 1000 Balance -380 / -380 -720 / -720 Weight 63.6 kg Intake: Oral 720 / 720 280 / 280 Output: Urine 1100 / 1100 1000 / 1000 Other: # Incontinent Voids 1 # Urine Diapers 3 Date of Last Bowel Movement 06/19/18 06/19/18 06/19/18 # Bowel Movements 0 Narrative: GENERAL: AAOx3, no acute distress, breathing easier, off of oxygen now SKIN: Warm and dry. No rashes HEAD: Atruamtic, normocephalic. EYES: No scleral icterus. No injection or drainage. ENT: Moist mucous membranes, patent nares, no erythema of oropharynx. NECK: Supple, trachea midline. No JVD or lymphadenopathy. Normal thyroid. CARDIOVASCULAR: Regular rate and rhythm. No murmurs, gallops, or rubs. RESPIRATORY: Scant atelectatic sounds i bilateral bases otherwise mostly clear in both lung cochran. No accessory muscle use. GASTROINTESTINAL: Abdomen soft, non-tender, nondistended, normal active bowel sounds MUSCULOSKELETAL: No cyanosis, or edema. NEURO: CN II-XII grossly intact, no focal deficits, no slurring of speech Results - Labs CBC & Chem 7: 06/21/18 10:10 06/23/18 06:20 Laboratory Results - last 24 hr 06/23/18 06:20 Sodium 146 H Potassium 3.6 Chloride 110 H Carbon Dioxide 25.1 Anion Gap 11 BUN 14 Creatinine 1.04 H Estimated GFR 51 L Random Glucose 120 H Calcium 7.2 L* Prot Corrected Calcium 8.2 L Total Protein 5.2 L Microbiology 06/20/18 15:40 Fluid - Pleural fluid Gram Stain - Final 06/20/18 15:40 Fluid - Pleural fluid Body Fluid Culture - Final No growth in 72 hours (aerobically and anaerobically ) Assessment and Plan - Plan Bilateral pleural effusion CTA that revealed no PE with emphysematous changes and bilateral pleural effusion Pulmonology performed thoracentesis of left lung with symptomatic relief Right lung is now demonstrating some worsening on chest x-ray Dose of Lasix IV yesterday seems to have relieved her dyspnea, she is now off of oxygen 2D echocardiogram reveals ejection fraction of 35-40% Continue Lasix as needed Newly diagnosed CHF Patient denies a history of congestive heart failure This is the first time she has had a recurrence of pulmonary effusions Adding low-dose p.o. Lasix Cardiology consult placed h/o COPD no acute exacerbation Continue duo nebs as needed, continue oxygen as needed Hypertension, chronic Well-controlled with current medications Continue home medications, diltiazem DVT Prophylaxis Lovenox
--- NOTE | 2018-06-23 19:17 | P.PNPL ---
Subjective Interval history: 82 YOWF with COPD, pl eff,s/p TC Breathing much better Pl fluid transudate No CP Feels weak Echo EF 35-40% RVSP 49 Physical Exam Vital signs: Vital Signs 06/22/18 20:00 06/23/18 00:00 06/23/18 04:00 Temperature 97.9 F 97.8 F 97.9 F Pulse Rate 94 H 83 83 Respiratory Rate 18 18 20 Blood Pressure 113/54 L 111/58 L 112/57 L Pulse Oximetry 94 L 94 L 93 L 06/23/18 08:00 06/23/18 09:00 06/23/18 12:00 Temperature 97.7 F Pulse Rate 87 92 H 97 H Respiratory Rate 18 Blood Pressure 119/61 Pulse Oximetry 93 L 06/23/18 16:00 Temperature Pulse Rate 90 Respiratory Rate Blood Pressure Pulse Oximetry Intake & Output 06/23/18 06/23/18 06/24/18 06:59 18:59 06:59 Intake Total 280 / 280 Output Total 1000 / 1000 Balance -720 / -720 Weight 63.6 kg Intake: Oral 280 / 280 Output: Urine 1000 / 1000 Other: Date of Last Bowel Movement 06/19/18 06/19/18 GENERAL: Elderly WF weak, NAD SKIN: Warm and dry. HEAD: Normocephalic. EYES: No scleral icterus. No injection or drainage. NECK: Supple, trachea midline. No JVD or lymphadenopathy. CARDIOVASCULAR: Regular rate and rhythm without murmurs, gallops, or rubs. RESPIRATORY: Breath sounds equal bilaterally. No accessory muscle use. GASTROINTESTINAL: Abdomen soft, non-tender, nondistended. MUSCULOSKELETAL: No cyanosis, or edema. BACK: Nontender without obvious deformity. No CVA tenderness. Assessment and Plan - Plan Pleural effusion, s/p TC COPD HTN Atelactesis CMP PHTN PLAN: Wean off 02 if sat >90% Symbicort 2 puffs bid Aerosol nebs DC Plans for rehab Stable on RA
--- NOTE | 2018-06-24 06:10 | XR ---
EXAM DATE: 06/24/2018 5:58 AM EST AGE/SEX: 82 years / Female INDICATIONS: Congestion, short of breath, no chest pain, evaluate pleural effusion CLINICAL DATA: This is the patient's subsequent encounter. Patient reports that signs and symptoms h ave been present for 3 days and indicates a pain score of 0/10. MEDICAL/SURGICAL HISTORY: Chronic obstructive pulmonary disease. None. COMPARISON: [facility] [place], CHEST 1V SINGLE AP, 06/22/2018. . FINDINGS: There is mild bilateral basilar predominant pleural-parenchymal opacity which is nonsignificantly catina nged. Cardiac contours are unchanged. CONCLUSION: Stable chest appearance Electronically signed by: Francisco Scales MD 06/24/2018 6:08 AM EST
[2018-06-24] MEDS: dilTIAZem CD 120 MG Capsule PO SCH (08:47)
[2018-06-24] MEDS: Pantoprazole Sodium 20 MG DR Tablet PO SCH (08:48)
[2018-06-24] MEDS: Budesonide-Formoterol 160/4.5 MCG 6 GM Inhaler INH SCH ×2 (08:52→20:29)
[2018-06-24] MEDS ORDERED: Furosemide 20 MG Tablet PO SCH ×2 (09:00→10:00)
[2018-06-24] MEDS ORDERED: Furosemide 20 MG Tablet PO ONE (10:30)
--- NOTE | 2018-06-24 11:13 | MB ---
cc: Chaitanya Chau MD DATE: 06/24/2018 HISTORY OF PRESENT ILLNESS: Jacquelyn Forbes is an 82-year-old woman whom I have asked to see because of an abnormal echo and pleural effusions. She has a background history of COPD and hypertension. She was on a diuretic, but saw a kidney doctor 2 months ago who had her stop it, afraid that was causing kidney failure. She has had recent UTI and recent ileus and was in a rehab facility, came in due to lower extremity edema and pleural effusions. She has had a thoracentesis performed already. Denies any chest pain. She says she is no longer short of breath. She is able to lie supine in bed. Her edema is much, much improved. PAST MEDICAL HISTORY: Includes COPD, hypertension, right breast cancer with radiation therapy, previous UTI, ileus, back pain, glaucoma, hypercholesterolemia, osteoporosis. PAST SURGICAL HISTORY: Includes hysterectomy, appendectomy, back surgery. FAMILY HISTORY: Positive for hypertension and stroke. SOCIAL HISTORY: She is retired. She smoked 50 years, but has quit for 17 years. Drinks alcohol socially only. DIAGNOSTIC DATA: Echo was read as moderate left ventricular hypertrophy, ejection fraction 35% to 40%. EKG shows sinus rhythm, low limb lead voltage and a left bundle branch block. Labs and chest x-ray are charted. IMPRESSION: 1. Congestive heart failure appears markedly improved from when she first came in. Her blood pressure is running somewhat low. I was going to hold off on adding add TRIP inhibitor. I am suspicious as to whether she could have amyloidosis with the hypertrophy and the EKG finding, so I am ordering serum and urine workup for light chain amyloidosis, might benefit from a PYP scan looking for PYP uptake for transthyroid and amyloidosis. I will see if I can get that ordered as well. In the meantime I am going to change her Lasix to 40 mg daily, add potassium 20 mEq daily. Further therapy to be determined. Chaitanya Chau MD VEW/ct , 09:03 AM , 09:09 AM
[2018-06-24 11:49] LABS: Kappa Lambda Ratio 1.41 (1.57-3.93)
[2018-06-24] MEDS ORDERED: Glycerin Adult 2 GM Supp RECTAL ONE (13:00)
--- NOTE | 2018-06-24 15:28 | US ---
EXAM DATE: 06/20/2018 3:55 PM EDT AGE/SEX: 82 years / Female INDICATIONS: Left pleural effusion. CLINICAL DATA: This is the patient's initial encounter. Patient reports that signs and symptoms have been present for 4 - 6 days and indicates a pain score of 0/10. MEDICAL/SURGICAL HISTORY: Chronic obstructive pulmonary disease. Hypertension. Back pain. Thierry gn neoplasm of colon. Breast cancer, right. Cataracts. Glaucoma. Radiation therapy. Hyperlipidemia. O steoporosis. Appendectomy. Hysterectomy. Back surgery. COMPARISON: No prior exams available for comparison. FLUID: Total volume of 550 cc of clear, yellow fluid was removed. Fluid was sent to lab for ordered studies. . . TECHNIQUE: Ultrasound guidance for thoracentesis. Thoracentesis. The risks, benefits, and alternatives to ultrasound guided thoracentesis were explained to the patien t in lay simple terms, including the risk of bleeding and infection. Written and verbal informed con sent was obtained. Appropriate area for left thoracentesis was marked under ultrasound guidance with the patient in the upright position. Overlying skin was prepped and draped in the usual sterile fashion and with local anesthetic, a dermatotomy was made with an 11 blade scalpel. A 6 [place] thoracentesis catheter was p laced in the pleural space and fluid was removed. Catheter was then removed and a sterile dressing a pplied. There were no immediate complications. The patient tolerated the procedure well and the left the ultrasound suite in stable condition. Chest radiograph is to be obtained. FINDINGS: Adequate fluid for thoracentesis. CONCLUSION: 1. Uncomplicated thoracentesis. Electronically signed by: Rodríguez Gaspar MD 06/24/2018 3:26 PM EST
--- NOTE | 2018-06-24 18:43 | P.PNIM ---
Subjective Interval history: Patient remains comfortably breathing off of oxygen. Echocardiogram revealed CHF, cardiology was consulted, some workup is pending. She has not had a bowel movement in 4-5 days. Physical Exam Vital signs: Vital Signs 06/23/18 20:00 06/23/18 22:00 06/24/18 00:00 Temperature 98.2 F 97.9 F Pulse Rate 92 H 103 H 84 Respiratory Rate 14 15 Blood Pressure 107/49 L 112/54 L Pulse Oximetry 93 L 95 06/24/18 04:00 06/24/18 08:00 06/24/18 10:53 Temperature 97.8 F 98 F Pulse Rate 77 95 H Respiratory Rate 14 18 Blood Pressure 102/54 L 106/50 L Pulse Oximetry 93 L 94 L 95 06/24/18 12:00 06/24/18 16:00 Temperature 98.2 F 98 F Pulse Rate 86 85 Respiratory Rate 21 20 Blood Pressure 108/59 L 104/60 Pulse Oximetry 93 L 93 L Intake & Output 06/23/18 06/24/18 06/24/18 18:59 06:59 18:59 Intake Total 420 / 420 Output Total 550 / 550 Balance -550 / -550 420 / 420 Weight 61.8 kg Intake: Oral 420 / 420 Output: Urine 550 / 550 Other: Date of Last Bowel Movement 06/19/18 06/19/18 06/24/18 # Incontinent Bowel Movements 1 Narrative: GENERAL: AAOx3, no acute distress, breathing easier, off of oxygen now SKIN: Warm and dry. No rashes HEAD: Atruamtic, normocephalic. EYES: No scleral icterus. No injection or drainage. ENT: Moist mucous membranes, patent nares, no erythema of oropharynx. NECK: Supple, trachea midline. No JVD or lymphadenopathy. Normal thyroid. CARDIOVASCULAR: Regular rate and rhythm. No murmurs, gallops, or rubs. RESPIRATORY: Scant atelectatic sounds i bilateral bases otherwise mostly clear in both lung cochran. No accessory muscle use. GASTROINTESTINAL: Abdomen soft, non-tender, nondistended, normal active bowel sounds MUSCULOSKELETAL: No cyanosis, or edema. NEURO: CN II-XII grossly intact, no focal deficits, no slurring of speech Results - Labs CBC & Chem 7: 06/21/18 10:10 06/23/18 06:20 Laboratory Results - last 24 hr 06/24/18 11:00 Total Protein (PEP) 5.1 L IgG 531 L IgA 125 IgM 37 L [place]/Lambda Ratio 1.41 L [place] Light Chain Anal 131 L Lambda Light Chain Anal 93 - Imaging Impressions Thoracentesis Ultrasound 06/20/18 00:00 CONCLUSION: 1. Uncomplicated thoracentesis. Chest X-Ray 06/24/18 06:00 CONCLUSION: Stable chest appearance Assessment and Plan - Plan Bilateral pleural effusion CTA that revealed no PE with emphysematous changes and bilateral pleural effusion Pulmonology performed thoracentesis of left lung with symptomatic relief Dose of Lasix IV yesterday seems to have relieved her dyspnea, she is now off of oxygen 2D echocardiogram reveals ejection fraction of 35-40% Repeat chest x-ray appears stable Continue Lasix as needed Newly diagnosed CHF Patient denies a history of congestive heart failure This is the first time she has had a recurrence of pulmonary effusions Cardiology increased Lasix to 40 mg daily Urine markers ordered to rule out amyloidosis Appreciate cardiology consult Constipation Glycerin suppository added to bowel regimen h/o COPD no acute exacerbation Continue duo nebs as needed, continue oxygen as needed Hypertension, chronic Well-controlled with current medications Continue home medications, diltiazem DVT Prophylaxis Lovenox
--- NOTE | 2018-06-24 19:55 | P.PNPL ---
Subjective Interval history: 82 YOWF with COPD, pl eff,s/p TC Breathing much better Pl fluid transudate No CP Feels weak Echo EF 35-40% RVSP 49 Pl fluid cytology Negative Physical Exam Vital signs: Vital Signs 06/23/18 20:00 06/23/18 22:00 06/24/18 00:00 Temperature 98.2 F 97.9 F Pulse Rate 92 H 103 H 84 Respiratory Rate 14 15 Blood Pressure 107/49 L 112/54 L Pulse Oximetry 93 L 95 06/24/18 04:00 06/24/18 08:00 06/24/18 10:53 Temperature 97.8 F 98 F Pulse Rate 77 95 H Respiratory Rate 14 18 Blood Pressure 102/54 L 106/50 L Pulse Oximetry 93 L 94 L 95 06/24/18 12:00 06/24/18 16:00 Temperature 98.2 F 98 F Pulse Rate 86 85 Respiratory Rate 21 20 Blood Pressure 108/59 L 104/60 Pulse Oximetry 93 L 93 L Intake & Output 06/24/18 06/24/18 06/25/18 06:59 18:59 06:59 Intake Total 420 / 420 Output Total 550 / 550 Balance -550 / -550 420 / 420 Weight 61.8 kg Intake: Oral 420 / 420 Output: Urine 550 / 550 Other: Date of Last Bowel Movement 06/19/18 06/24/18 # Incontinent Bowel Movements 1 GENERAL: Elderly WF,NAD SKIN: Warm and dry. HEAD: Normocephalic. EYES: No scleral icterus. No injection or drainage. NECK: Supple, trachea midline. No JVD or lymphadenopathy. CARDIOVASCULAR: Regular rate and rhythm without murmurs, gallops, or rubs. RESPIRATORY: Breath sounds equal bilaterally. No accessory muscle use. GASTROINTESTINAL: Abdomen soft, non-tender, nondistended. MUSCULOSKELETAL: No cyanosis, or edema. BACK: Nontender without obvious deformity. No CVA tenderness. Assessment and Plan - Plan Pleural effusion, s/p TC COPD HTN Atelactesis CMP PHTN PLAN: Wean off 02 if sat >90% Symbicort 2 puffs bid Aerosol nebs Stable on RA SQ Lovenox Lisinopril 2.5 mg daily Metoprolol 12.5 mg daily added
[2018-06-25 06:59] LABS: Calcium 7.3 mg/dL (8.5-10.1); Carbon Dioxide 26.5 meq/L (21.0-32.0); Potassium 3.8 meq/L (3.5-5.1)
[2018-06-25 07:30] LABS: Total Protein 4.9 g/dL (6.4-8.2)
[2018-06-25] MEDS: Pantoprazole Sodium 20 MG DR Tablet PO SCH (08:56)
[2018-06-25] MEDS: Lisinopril 5 MG Tablet PO SCH ×2 (08:56→09:10)
[2018-06-25] MEDS: Furosemide 20 MG Tablet PO SCH ×2 (08:59→09:11)
[2018-06-25] MEDS: Budesonide-Formoterol 160/4.5 MCG 6 GM Inhaler INH SCH ×2 (09:12→21:16)
--- NOTE | 2018-06-25 09:24 | P.PNCA ---
Subjective Interval history: no complaints Medications and Allergies Active Medications: Active Medications Acetaminophen (Tylenol) 650 mg PO Q4H PRN PRN Reason: Temp > 100.4 Last Admin: 06/22/18 20:55 Dose: 650 mg Albuterol (Duoneb Neb (Prn)) 1 ampul NEB Q2HR NEB PRN PRN Reason: WHEEZING Aspirin (Ecotrin) 81 mg PO DAILY [facility] Last Admin: 06/25/18 08:56 Dose: 81 mg Budesonide/Formoterol Fumarate (Symbicort 160/4.5 Mcg Inh) 2 puff INH BID [facility] Last Admin: 06/25/18 09:12 Dose: 2 puff Enoxaparin Sodium (Lovenox Inj) 40 mg SQ Q24H [facility] Last Admin: 06/19/18 20:39 Dose: 40 mg Furosemide (Lasix) 40 mg PO DAILY [facility] Last Admin: 06/25/18 09:11 Dose: Not Given Lisinopril (Prinivil) 2.5 mg PO DAILY [facility] Last Admin: 06/25/18 09:10 Dose: Not Given Metoprolol Succinate (Toprol Xl) 12.5 mg PO DAILY [facility] Ondansetron HCl (Zofran Inj) 4 mg IV.PUSH Q6H PRN PRN Reason: NAUSEA OR VOMITING Last Admin: 06/24/18 00:21 Dose: 4 mg Pantoprazole Sodium (Protonix) 20 mg PO DAILY [facility] Last Admin: 06/25/18 08:56 Dose: 20 mg Potassium Chloride (K-Dur) 20 meq PO DAILY [facility] Last Admin: 06/25/18 08:57 Dose: 20 meq Sennosides (Senokot) 17.2 mg PO Q12H PRN PRN Reason: Moderate Constipation Last Admin: 06/24/18 08:51 Dose: 17.2 mg Tamsulosin HCl (Flomax) 0.4 mg PO DAILY [facility] Last Admin: 06/25/18 08:56 Dose: 0.4 mg Allergies Allergy/AdvReac Type Severity Reaction Status Date / Time amoxicillin Allergy Intermediate NAUSEA/CRAM Verified 06/02/18 07:54 PING/VOMITI NG Home Medications Medication Instructions Recorded Confirmed Type alendronate 70 mg PO QWEEK 06/02/18 06/19/18 History anastrozole 1 mg PO DAILY 06/02/18 06/19/18 History aspirin [Aspirin Low Dose] 81 mg PO DAILY 06/02/18 06/19/18 History cinnamon bark [Cinnamon] 500 mg PO DAILY 06/02/18 06/19/18 History diltiazem HCl 120 mg PO DAILY 06/02/18 06/19/18 History magnesium 250 mg PO DAILY 06/02/18 06/19/18 History omeprazole 20 mg PO DAILY 06/02/18 06/19/18 History tiotropium bromide [Spiriva with 1 cap INHALATION DAILY 06/02/18 06/19/18 History HandiHaler] fluticasone-salmeterol [Advair 1 inh INHALATION Q12H 06/19/18 06/19/18 History Diskus] magnesium citrate [Citroma] 296 ml PO DAILY PRN 06/19/18 06/19/18 History magnesium hydroxide [Milk of 30 ml PO DAILY PRN 06/19/18 06/19/18 History Magnesia] sodium phosphates [Enema 118 ml CO DAILY PRN 06/19/18 06/19/18 History Disposable] Physical Exam Vital signs: Vital Signs 06/24/18 10:53 06/24/18 12:00 06/24/18 16:00 Temperature 98.2 F 98 F Pulse Rate 86 85 Respiratory Rate 21 20 Blood Pressure 108/59 L 104/60 Pulse Oximetry 95 93 L 93 L 06/24/18 20:00 06/25/18 00:00 06/25/18 04:00 Temperature 97.8 F 98 F 98 F Pulse Rate 91 H 87 86 Respiratory Rate 16 18 14 Blood Pressure 133/58 L 148/64 H 99/52 L Pulse Oximetry 93 L 95 95 Intake & Output 06/24/18 06/25/18 06/25/18 18:59 06:59 18:59 Intake Total 420 / 420 480 / 480 Output Total 550 / 550 Balance 420 / 420 -70 / -70 Weight 62.6 kg Intake: Oral 420 / 420 480 / 480 Output: Urine 550 / 550 Other: Date of Last Bowel Movement 06/24/18 06/24/18 # Incontinent Bowel Movements 1 Narrative: GENERAL: AAOx3, no acute distress, breathing easier, off of oxygen now SKIN: Warm and dry. No rashes HEAD: Atraumtic, normocephalic. ENT: Moist mucous membranes, patent nares, no erythema of oropharynx. NECK: Supple, trachea midline. No JVD. Normal thyroid. CARDIOVASCULAR: Regular rate and rhythm. No murmurs, gallops, or rubs. RESPIRATORY: Scant atelectatic sounds i bilateral bases otherwise mostly clear in both lung cochran. No accessory muscle use. GASTROINTESTINAL: Abdomen soft, non-tender, nondistended, normal active bowel sounds MUSCULOSKELETAL: No cyanosis, or edema. NEURO: no focal deficits, no slurring of speech - Urinary Catheter Management Indwelling Urethral Catheter Cath placed during this visit: yes Reason for continuing: Acute urinary retention Insertion date: 06/24/18 Insertion time: 20:00 Results 06/21/18 10:10 06/25/18 05:00 Comprehensive Metabolic Panel 06/25/18 Range/Units 05:00 Sodium 145 (136-145) meq/L Potassium 3.8 (3.5-5.1) meq/L Chloride 109 H (98-107) meq/L Carbon Dioxide 26.5 (21.0-32.0) meq/L BUN 16 (7-18) mg/dL Creatinine 1.35 H (0.50-1.00) mg/dL Calcium 7.3 L* (8.5-10.1) mg/dL Total Protein 4.9 L (6.4-8.2) g/dL Intake and Output 06/24/18 06/25/18 06/25/18 22:59 06:59 14:59 Intake Total 420 / 420 480 / 480 Output Total 550 / 550 Balance 420 / 420 -70 / -70 Intake: Oral 420 / 420 480 / 480 Output: Urine 550 / 550 Other: Date of Last Bowel Movement 06/24/18 # Incontinent Bowel Movements 1 Weight 62.6 kg - Imaging and Cardiology Imaging: Impressions Thoracentesis Ultrasound 06/20/18 00:00 CONCLUSION: 1. Uncomplicated thoracentesis. Chest X-Ray 06/24/18 06:00 CONCLUSION: Stable chest appearance Assessment and Plan - Assessment (1) Pleural effusion Code(s): J90 - Pleural effusion, not elsewhere classified Status: Acute (2) Cardiomyopathy Code(s): I42.9 - Cardiomyopathy, unspecified Status: Acute Plan: She could have amyloidosis. W/U in progress for light chain. Cardiac PYP scan would be helpful - waiting to hear from radiology if they can do it. I ordered low dose ACEI/BB/diuretic. BP low this AM/ diuretic held.
--- NOTE | 2018-06-25 16:41 | P.PNIM ---
Subjective Interval history: Patient was prepared for discharge today but is undergoing a 24-hour urine study. Due to her incontinence of urine she needed to have a catheter placed in order to obtain adequate output. She is planning for discharge tomorrow with outpatient follow-up for her newly diagnosed CHF. Physical Exam Vital signs: Vital Signs 06/24/18 20:00 06/25/18 00:00 06/25/18 04:00 Temperature 97.8 F 98 F 98 F Pulse Rate 91 H 87 86 Respiratory Rate 16 18 14 Blood Pressure 133/58 L 148/64 H 99/52 L Pulse Oximetry 93 L 95 95 06/25/18 08:00 06/25/18 12:00 06/25/18 13:20 Temperature 98 F 98.3 F 98.3 F Pulse Rate 80 97 H 97 H Respiratory Rate 24 20 20 Blood Pressure 103/52 L 113/54 L 113/54 L Pulse Oximetry 95 97 93 L Intake & Output 06/24/18 06/25/18 06/25/18 18:59 06:59 18:59 Intake Total 420 / 420 480 / 480 Output Total 550 / 550 Balance 420 / 420 -70 / -70 Weight 62.6 kg Intake: Oral 420 / 420 480 / 480 Output: Urine 550 / 550 Other: Date of Last Bowel Movement 06/24/18 06/24/18 # Incontinent Bowel Movements 1 Narrative: GENERAL: AAOx3, no acute distress, remains comfortable off of oxygen SKIN: Warm and dry. No rashes HEAD: Atraumtic, normocephalic. ENT: Moist mucous membranes, patent nares, no erythema of oropharynx. NECK: Supple, trachea midline. No JVD. Normal thyroid. CARDIOVASCULAR: Regular rate and rhythm. No murmurs, gallops, or rubs. RESPIRATORY: Scant atelectatic sounds i bilateral bases otherwise mostly clear in both lung cochran. No accessory muscle use. GASTROINTESTINAL: Abdomen soft, non-tender, nondistended, normal active bowel sounds MUSCULOSKELETAL: No cyanosis, or edema. NEURO: no focal deficits, no slurring of speech - Urinary Catheter Management Indwelling Urethral Catheter Cath placed during this visit: yes Reason for continuing: Acute urinary retention Insertion date: 06/24/18 Insertion time: 20:00 Results - Labs CBC & Chem 7: 06/21/18 10:10 06/25/18 05:00 Laboratory Results - last 24 hr 06/24/18 06/24/18 06/25/18 11:00 14:00 05:00 Sodium 145 Potassium 3.8 Chloride 109 H Carbon Dioxide 26.5 Anion Gap 10 BUN 16 Creatinine 1.35 H Estimated GFR 37 L Random Glucose 111 H Calcium 7.3 L* Prot Corrected Calcium 8.5 Total Protein 4.9 L YURI Interpretation Urine Immunofixation Assessment and Plan - Plan Bilateral pleural effusion CTA that revealed no PE with emphysematous changes and bilateral pleural effusion Pulmonology performed thoracentesis of left lung with symptomatic relief Dose of Lasix IV yesterday seems to have relieved her dyspnea, she is now off of oxygen 2D echocardiogram reveals ejection fraction of 35-40% Repeat chest x-ray appears stable Continue Lasix as needed Newly diagnosed CHF Patient denies a history of congestive heart failure This is the first time she has had a recurrence of pulmonary effusions Cardiology increased Lasix to 40 mg daily, patient now thirsty with dry mouth 24-hour urine collection ordered by cardiology to rule out amyloidosis Patient was started on a partial regiment due to borderline hypotension, her medications (TRIP-i, BB, Lasix) are being titrated as an inpatient for safety Appreciate cardiology consult Acute on chronic kidney disease GFR during hospitalization ranged from 37-52 Necessary to observe renal function and response to the addition of Lasix Patient reports feeling thirsty today, dry mouth COPD Though there may have been element of COPD, her breathing improved following thoracentesis and treatment for CHF with diuresis Constipation Glycerin suppository added to bowel regimen Hypertension, chronic Well-controlled with current medications Continue home medications, diltiazem DVT Prophylaxis Lovenox
--- NOTE | 2018-06-25 16:44 | P.DS ---
Date of admission: 06/24/18 18:43 Primary care physician: Annabel Gamboa MD Brief History from admission: 82-year-old female with a history of COPD, hypertension, breast cancer, recent UTI, recent ileus presents to the ER after acute onset of shortness of breath during her rehab exercise at her rehab facility. ER workup reveals a left side moderate pulmonary effusion with diminished breath sounds on exam. Exam and effusion are however somewhat disproportionate compared to the tachypnea and shortness of breath she is experiencing. She reports that approximately 1 week ago her right leg was 3 times the size of normal and her left leg was approximately twice normal. Both legs have since reduced and there is edema, left leg has returned to normal, right leg is still somewhat edematous. She was recently admitted for 9 days following urinary tract infection that had an impact on her kidneys and resulted in ileus which resolved slowly. During that time she states she used her SCD hose intermittently. She was discharged from the hospital to rehab where she remained 1 week prior to today. She denies any fevers, denies slow onset of shortness of breath, denies cough. She denies chest pain, denies syncope, denies diaphoresis, denies history of cardiac arrhythmia. DS: Medications - Discharge Medications Prescriptions: aspirin [Aspirin Low Dose] 81 mg PO DAILY #30 tab fluticasone-salmeterol [Advair Diskus] 1 inh INHALATION Q12H #1 inhaler furosemide 20 mg PO DAILY #30 tab lisinopril 2.5 mg PO DAILY #30 tab magnesium citrate [Citroma] 296 ml PO DAILY PRN #2000 ml PRN Reason: Constipation magnesium hydroxide [Milk of Magnesia] 30 ml PO DAILY PRN #300 ml PRN Reason: Constipation megestrol 40 mg PO BID #60 tab metoprolol succinate 12.5 mg PO DAILY #30 tab sodium phosphates [Enema Disposable] 118 ml IA DAILY PRN #1 unit PRN Reason: Constipation tamsulosin 0.4 mg PO DAILY #30 cap tiotropium bromide [Spiriva with HandiHaler] 1 cap INHALATION DAILY #1 inhaler DS: Summary Hospital Course: 82-year-old female presented to the ER with respiratory distress secondary to moderate left effusion in her lung. She underwent a thoracentesis next day and had some partial relief. Follow-up x-ray showed resolution of the left effusion but worsening early right effusion and she remained oxygen dependent. When echocardiogram revealed that she had CHF with ejection fraction of 35-40% she was started on Lasix in the next day was off of her oxygen and breathing comfortably after period of diuresis. Cardiology was consulted and ordered a 24 -hour urine for amyloid levels. She is currently with a catheter to collect urine due to urinary incontinence. After she has provided 24 hours of urine she will be able to go back to her rehab center and follow-up with cardiology on an outpatient basis to review results. She was recommended to take Lasix, beta-elizabeth, TRIP inhibitor all of which have been titrated during her stay due to hypotension and chronic renal disease with elevated GFR. - Time Spent with Patient Total time spent providing and/or coordinating discharge services: Less than 30 minutes Exam Vital signs: Vital Signs 06/24/18 20:00 06/25/18 00:00 06/25/18 04:00 Temperature 97.8 F 98 F 98 F Pulse Rate 91 H 87 86 Respiratory Rate 16 18 14 Blood Pressure 133/58 L 148/64 H 99/52 L Pulse Oximetry 93 L 95 95 06/25/18 08:00 06/25/18 12:00 06/25/18 13:20 Temperature 98 F 98.3 F 98.3 F Pulse Rate 80 97 H 97 H Respiratory Rate 24 20 20 Blood Pressure 103/52 L 113/54 L 113/54 L Pulse Oximetry 95 97 93 L Intake & Output 06/24/18 06/25/18 06/25/18 18:59 06:59 18:59 Intake Total 420 / 420 480 / 480 Output Total 550 / 550 Balance 420 / 420 -70 / -70 Weight 62.6 kg Intake: Oral 420 / 420 480 / 480 Output: Urine 550 / 550 Other: Date of Last Bowel Movement 06/24/18 06/24/18 # Incontinent Bowel Movements 1 Results Procedures completed during hospitalization: Thoracentesis 06/20/18 Labs on day of discharge: Labs from last 24 hours 06/25/18 06/24/18 06/24/18 05:00 14:00 11:00 Sodium 145 Potassium 3.8 Chloride 109 H Carbon Dioxide 26.5 Anion Gap 10 BUN 16 Creatinine 1.35 H Estimated GFR 37 L Random Glucose 111 H Calcium 7.3 L* Prot Corrected Calcium 8.5 Total Protein 4.9 L YURI Interpretation Urine Immunofixation - Impressions ITS Impressions Chest CTA 06/19/18 00:00 CONCLUSION: 1. Suboptimal exam with minimal contrast as above. No large central filling defects. 2. Moderate bilateral pleural effusions with compressive atelectasis. Emphysema. Also linear atelectasis left upper lobe posteriorly. Thoracentesis Ultrasound 06/20/18 00:00 CONCLUSION: 1. Uncomplicated thoracentesis. Chest X-Ray 06/24/18 06:00 CONCLUSION: Stable chest appearance Discharge Plan - Discharge Disposition Patient Disposition: 03 Discharge to SNF - Discharge Condition Condition: Good - Discharge Order Discharge Orders: Discharge Order (Routine); Ordered 06/26/18 Ordered By: Trent Jonas - Discharge Details Anticipated Discharge Date: 06/26/18 - Physicians Team Primary Care Provider: Annabel Gamboa Attending Provider: Trent Jonas Other Providers: Dave,[employer] ; Flaco Cha MD ; [facility] ; Chaitanya Chau MD
--- NOTE | 2018-06-25 18:29 | P.PNPL ---
Subjective Interval history: 82 YOWF with COPD, pl eff,s/p TC Breathing much better Pl fluid transudate No CP Feels weak Pl fluid cytology Negative Weaned to RA Physical Exam Vital signs: Vital Signs 06/24/18 20:00 06/25/18 00:00 06/25/18 04:00 Temperature 97.8 F 98 F 98 F Pulse Rate 91 H 87 86 Respiratory Rate 16 18 14 Blood Pressure 133/58 L 148/64 H 99/52 L Pulse Oximetry 93 L 95 95 06/25/18 08:00 06/25/18 12:00 06/25/18 13:20 Temperature 98 F 98.3 F 98.3 F Pulse Rate 80 97 H 97 H Respiratory Rate 24 20 20 Blood Pressure 103/52 L 113/54 L 113/54 L Pulse Oximetry 95 97 93 L 06/25/18 16:00 Temperature 98.1 F Pulse Rate 93 H Respiratory Rate 19 Blood Pressure 113/53 L Pulse Oximetry 96 Intake & Output 06/24/18 06/25/18 06/25/18 18:59 06:59 18:59 Intake Total 420 / 420 480 / 480 Output Total 550 / 550 Balance 420 / 420 -70 / -70 Weight 62.6 kg Intake: Oral 420 / 420 480 / 480 Output: Urine 550 / 550 Other: Date of Last Bowel Movement 06/24/18 06/24/18 # Incontinent Bowel Movements 1 GENERAL: Eldely WF, NAD SKIN: Warm and dry. HEAD: Normocephalic. EYES: No scleral icterus. No injection or drainage. NECK: Supple, trachea midline. No JVD or lymphadenopathy. CARDIOVASCULAR: Regular rate and rhythm without murmurs, gallops, or rubs. RESPIRATORY: Breath sounds equal bilaterally. No accessory muscle use. GASTROINTESTINAL: Abdomen soft, non-tender, nondistended. MUSCULOSKELETAL: No cyanosis, or edema. BACK: Nontender without obvious deformity. No CVA tenderness. - Urinary Catheter Management Indwelling Urethral Catheter Cath placed during this visit: yes Reason for continuing: Acute urinary retention Insertion date: 06/24/18 Insertion time: 20:00 Assessment and Plan - Plan Pleural effusion, s/p TC COPD HTN Atelactesis CMP PHTN PLAN: Wean off 02 if sat >90% Symbicort 2 puffs bid Aerosol nebs Stable on RA SQ Lovenox Lisinopril 2.5 mg daily Metoprolol 12.5 mg daily added DC Plans underway for yosvany Bernal Will FU in office
[2018-06-26 07:51] LABS: Calcium 7.5 mg/dL (8.5-10.1); Carbon Dioxide 26.7 meq/L (21.0-32.0); Potassium 4.2 meq/L (3.5-5.1)
--- NOTE | 2018-06-26 09:08 | P.PN ---
Subjective Interval history: Follow up for pleural effusion, CHF. The patient reports feeling much better today. Denies any chest pain, cough, or shortness of breath. She feels ready for discharge. No new complaints at thsi time. Physical Exam Vital signs: Vital Signs 06/25/18 12:00 06/25/18 13:20 06/25/18 16:00 Temperature 98.3 F 98.3 F 98.1 F Pulse Rate 96 H 97 H 92 H Respiratory Rate 20 20 19 Blood Pressure 113/54 L 113/54 L 113/53 L Pulse Oximetry 97 93 L 96 06/25/18 20:00 06/25/18 23:45 06/25/18 23:46 Temperature 98.3 F 98 F Pulse Rate 96 H 108 H Respiratory Rate 16 18 Blood Pressure 118/56 L 105/60 Pulse Oximetry 93 L 95 95 06/26/18 00:00 06/26/18 04:00 06/26/18 05:49 Temperature 98 F 97.9 F Pulse Rate 98 H 86 103 H Respiratory Rate 18 18 Blood Pressure 105/60 112/59 L Pulse Oximetry 95 96 06/26/18 08:00 Temperature 98.6 F Pulse Rate 95 H Respiratory Rate 16 Blood Pressure 113/58 L Pulse Oximetry 93 L Intake & Output 06/25/18 06/26/18 06/26/18 18:59 06:59 18:59 Intake Total 1900 / 1900 480 / 480 Output Total 1200 / 1200 800 / 800 Balance 700 / 700 -320 / -320 Weight 59.2 kg Intake: Oral 1150 / 1150 480 / 480 Oral Supplement 750 / 750 Output: Urine 1200 / 1200 800 / 800 Stool 0 / 0 Other: Date of Last Bowel Movement 06/25/18 # Bowel Movements 0 Narrative: GENERAL: Well-nourished, well-developed pleasant elderly female patient in [facility]. SKIN: Warm and dry. No rash. HEENT: Normocephalic. Atraumatic. Pupils equal and round. Mucous membranes pink and moist. CARDIOVASCULAR: Regular rate and rhythm. No murmur appreciated. RESPIRATORY: No accessory muscle use. Clear to auscultation. Breath sounds equal bilaterally. GASTROINTESTINAL: Abdomen soft, non-tender, nondistended. Normoactive bowel sounds x4. MUSCULOSKELETAL: No obvious deformities. Extremities without clubbing, cyanosis , or edema. NEUROLOGICAL: Awake and alert. No obvious cranial nerve deficits. Moving all extremities spontaneously. Normal speech. - Urinary Catheter Management Indwelling Urethral Catheter Cath placed during this visit: yes Reason for continuing: Acute urinary retention Insertion date: 06/24/18 Insertion time: 20:00 Results - Labs CBC & Chem 7: 06/21/18 10:10 06/26/18 06:13 Laboratory Results - last 24 hr 06/24/18 06/26/18 11:00 06:13 Sodium 146 H Potassium 4.2 Chloride 111 H Carbon Dioxide 26.7 Anion Gap 8 BUN 11 Creatinine 0.98 Estimated GFR 54 L Random Glucose 73 L Calcium 7.5 L Albumin (PEP) 2.84 L Albumin/Globulin Ratio 1.25 L Yxevq-9-Sdefbrund 0.29 Mrjia-5-Oopmojhfc 0.85 Beta Globulins 0.59 Gamma Globulins 0.55 - Imaging Chest CTA 06/19/18 00:00 CONCLUSION: 1. Suboptimal exam with minimal contrast as above. No large central filling defects. 2. Moderate bilateral pleural effusions with compressive atelectasis. Emphysema. Also linear atelectasis left upper lobe posteriorly. Chest X-Ray 06/19/18 15:29 CONCLUSION: Moderate size left pleural effusion and atelectasis left mid-lung zone. Chest X-Ray 06/20/18 00:00 CONCLUSION: 1. No pneumothorax following recent left thoracentesis. Left pleural effusion has significantly decreased in size. 2. Stable opacity at the right base representing pleural effusion with associated volume loss and/or airspace consolidation. Thoracentesis Ultrasound 06/20/18 00:00 CONCLUSION: 1. Uncomplicated thoracentesis. Chest X-Ray 06/22/18 00:00 CONCLUSION: 1. Stable left lung following thoracentesis with no evidence of pneumothorax. 2. Persistent right basilar opacity characteristic of a pleural effusion. 3. Slightly more prominent left midlung atelectasis. Chest X-Ray 06/24/18 06:00 CONCLUSION: Stable chest appearance - Procedures Thoracentesis 06/20/18 Assessment and Plan - Plan Bilateral pleural effusion CTA that revealed no PE with emphysematous changes and bilateral pleural effusion Pulmonology performed thoracentesis of left lung with symptomatic relief Dose of Lasix IV yesterday seems to have relieved her dyspnea, she is now off of oxygen 2D echocardiogram shows EF of 35-40% Repeat chest x-ray appears stable Continue Lasix as needed Symptoms resolved, denies SOB Newly diagnosed CHF Patient denies a history of congestive heart failure This is the first time she has had a recurrence of pulmonary effusions Given Lasix 40 mg daily, decreased to 20mg at discharge as symptoms improved and BP low 24-hour urine collection ordered by cardiology to rule out amyloidosis Patient was started on very low doses lisionpril 2.5mg and metoprolol 12.5mg due to borderline hypotension Appreciate cardiology consult, cleared for discharge Acute on chronic kidney disease GFR during hospitalization ranged from 37-52 Necessary to observe renal function and response to the addition of Lasix Stable COPD Though there may have been element of COPD, her breathing improved following thoracentesis and treatment for CHF with diuresis Constipation Glycerin suppository added to bowel regimen Hypertension, chronic Well-controlled with current medications Continue home medications, diltiazem DVT Prophylaxis Lovenox Discharge Planning: Patient being discharged today 06/26 back to [facility]. See discharge summary from 06/25.
[2018-06-26] MEDS: Pantoprazole Sodium 20 MG DR Tablet PO SCH (09:32)
[2018-06-26] MEDS: Lisinopril 5 MG Tablet PO SCH (09:34)
[2018-06-26] MEDS: Furosemide 20 MG Tablet PO SCH (09:36)
[2018-06-26] MEDS: Budesonide-Formoterol 160/4.5 MCG 6 GM Inhaler INH SCH ×2 (09:37→21:05)
--- NOTE | 2018-06-26 09:37 | P.PNCA ---
Subjective Interval history: no complaints Medications and Allergies Active Medications: Active Medications Acetaminophen (Tylenol) 650 mg PO Q4H PRN PRN Reason: Temp > 100.4 Last Admin: 06/22/18 20:55 Dose: 650 mg Albuterol (Duoneb Neb (Prn)) 1 ampul NEB Q2HR NEB PRN PRN Reason: WHEEZING Aspirin (Ecotrin) 81 mg PO DAILY [facility] Last Admin: 06/25/18 08:56 Dose: 81 mg Budesonide/Formoterol Fumarate (Symbicort 160/4.5 Mcg Inh) 2 puff INH BID [facility] Last Admin: 06/25/18 21:16 Dose: 2 puff Enoxaparin Sodium (Lovenox Inj) 40 mg SQ Q24H [facility] Last Admin: 06/19/18 20:39 Dose: 40 mg Furosemide (Lasix) 40 mg PO DAILY [facility] Last Admin: 06/25/18 09:11 Dose: Not Given Lisinopril (Prinivil) 2.5 mg PO DAILY [facility] Last Admin: 06/25/18 09:10 Dose: Not Given Metoprolol Succinate (Toprol Xl) 12.5 mg PO DAILY [facility] Last Admin: 06/25/18 12:08 Dose: 12.5 mg Ondansetron HCl (Zofran Inj) 4 mg IV.PUSH Q6H PRN PRN Reason: NAUSEA OR VOMITING Last Admin: 06/24/18 00:21 Dose: 4 mg Pantoprazole Sodium (Protonix) 20 mg PO DAILY [facility] Last Admin: 06/25/18 08:56 Dose: 20 mg Potassium Chloride (K-Dur) 20 meq PO DAILY [facility] Last Admin: 06/25/18 08:57 Dose: 20 meq Sennosides (Senokot) 17.2 mg PO Q12H PRN PRN Reason: Moderate Constipation Last Admin: 06/24/18 08:51 Dose: 17.2 mg Tamsulosin HCl (Flomax) 0.4 mg PO DAILY [facility] Last Admin: 06/25/18 08:56 Dose: 0.4 mg Allergies Allergy/AdvReac Type Severity Reaction Status Date / Time amoxicillin Allergy Intermediate NAUSEA/CRAM Verified 06/02/18 07:54 PING/VOMITI NG Home Medications Medication Instructions Recorded Confirmed Type alendronate 70 mg PO QWEEK 06/02/18 06/19/18 History anastrozole 1 mg PO DAILY 06/02/18 06/19/18 History cinnamon bark [Cinnamon] 500 mg PO DAILY 06/02/18 06/19/18 History diltiazem HCl 120 mg PO DAILY 06/02/18 06/19/18 History magnesium 250 mg PO DAILY 06/02/18 06/19/18 History omeprazole 20 mg PO DAILY 06/02/18 06/19/18 History Physical Exam Vital signs: Vital Signs 06/25/18 12:00 06/25/18 13:20 06/25/18 16:00 Temperature 98.3 F 98.3 F 98.1 F Pulse Rate 96 H 97 H 92 H Respiratory Rate 20 20 19 Blood Pressure 113/54 L 113/54 L 113/53 L Pulse Oximetry 97 93 L 96 06/25/18 20:00 06/25/18 23:45 06/25/18 23:46 Temperature 98.3 F 98 F Pulse Rate 96 H 108 H Respiratory Rate 16 18 Blood Pressure 118/56 L 105/60 Pulse Oximetry 93 L 95 95 06/26/18 00:00 06/26/18 04:00 06/26/18 05:49 Temperature 98 F 97.9 F Pulse Rate 98 H 86 103 H Respiratory Rate 18 18 Blood Pressure 105/60 112/59 L Pulse Oximetry 95 96 06/26/18 08:00 Temperature 98.6 F Pulse Rate 95 H Respiratory Rate 16 Blood Pressure 113/58 L Pulse Oximetry 93 L Intake & Output 06/25/18 06/26/18 06/26/18 18:59 06:59 18:59 Intake Total 1900 / 1900 480 / 480 Output Total 1200 / 1200 800 / 800 Balance 700 / 700 -320 / -320 Weight 59.2 kg Intake: Oral 1150 / 1150 480 / 480 Oral Supplement 750 / 750 Output: Urine 1200 / 1200 800 / 800 Stool 0 / 0 Other: Date of Last Bowel Movement 06/25/18 # Bowel Movements 0 Narrative: Alert, frail, NAD CVP nl Chest diminished right base? CV S1S2 RRR no edema - Urinary Catheter Management Indwelling Urethral Catheter Cath placed during this visit: yes, but has since been removed by the nurse Reason for continuing: Acute urinary retention Insertion date: 06/24/18 Insertion time: 20:00 Removal date: 06/26/18 Removal time: 08:35 Results 06/21/18 10:10 06/26/18 06:13 Comprehensive Metabolic Panel 06/25/18 06/26/18 Range/Units 05:00 06:13 Sodium 145 146 H (136-145) meq/L Potassium 3.8 4.2 (3.5-5.1) meq/L Chloride 109 H 111 H (98-107) meq/L Carbon Dioxide 26.5 26.7 (21.0-32.0) meq/L BUN 16 11 (7-18) mg/dL Creatinine 1.35 H 0.98 (0.50-1.00) mg/dL Calcium 7.3 L* 7.5 L (8.5-10.1) mg/dL Total Protein 4.9 L (6.4-8.2) g/dL Intake and Output 06/25/18 06/26/18 06/26/18 22:59 06:59 14:59 Intake Total 1900 / 1900 480 / 480 Output Total 1200 / 1200 800 / 800 Balance 700 / 700 -320 / -320 Intake: Oral 1150 / 1150 480 / 480 Oral Supplement 750 / 750 Output: Urine 1200 / 1200 800 / 800 Stool 0 / 0 Other: Date of Last Bowel Movement 06/25/18 # Bowel Movements 0 Weight 59.2 kg - Imaging and Cardiology Imaging: Impressions Thoracentesis Ultrasound 06/20/18 00:00 CONCLUSION: 1. Uncomplicated thoracentesis. Assessment and Plan - Assessment (1) Pleural effusion Code(s): J90 - Pleural effusion, not elsewhere classified Status: Acute (2) Cardiomyopathy Code(s): I42.9 - Cardiomyopathy, unspecified Status: Acute Plan: 06/25 She could have amyloidosis. W/U in progress for light chain. Cardiac PYP scan would be helpful - waiting to hear from radiology if they can do it. I ordered low dose ACEI/BB/diuretic. BP low this AM/ diuretic held. 06/26 Clinically stable. OK to OR home.
--- NOTE | 2018-06-26 17:52 | P.PNPL ---
Subjective Interval history: 82 YOWF with COPD, pl eff,s/p TC Breathing much better Pl fluid transudate No CP Feels weak Physical Exam Vital signs: Vital Signs 06/25/18 20:00 06/25/18 23:45 06/25/18 23:46 Temperature 98.3 F 98 F Pulse Rate 96 H 108 H Respiratory Rate 16 18 Blood Pressure 118/56 L 105/60 Pulse Oximetry 93 L 95 95 06/26/18 00:00 06/26/18 04:00 06/26/18 05:49 Temperature 98 F 97.9 F Pulse Rate 98 H 86 103 H Respiratory Rate 18 18 Blood Pressure 105/60 112/59 L Pulse Oximetry 95 96 06/26/18 08:00 06/26/18 09:00 06/26/18 11:00 Temperature 98.6 F Pulse Rate 95 H 101 H Respiratory Rate 16 Blood Pressure 113/58 L Pulse Oximetry 93 L 94 L 06/26/18 12:00 06/26/18 16:00 Temperature 97.2 F L 98 F Pulse Rate 96 H 84 Respiratory Rate 18 20 Blood Pressure 117/58 L 111/55 L Pulse Oximetry 96 95 Intake & Output 06/25/18 06/26/18 06/26/18 18:59 06:59 18:59 Intake Total 1900 / 1900 480 / 480 480 / 480 Output Total 1200 / 1200 800 / 800 1725 / 1725 Balance 700 / 700 -320 / -320 -1245 / -1245 Weight 59.2 kg Intake: Oral 1150 / 1150 480 / 480 480 / 480 Oral Supplement 750 / 750 Output: Urine 1200 / 1200 800 / 800 1725 / 1725 Stool 0 / 0 Other: # Incontinent Voids 3 Date of Last Bowel Movement 06/25/18 06/25/18 # Bowel Movements 0 0 GENERAL: Elderly WF, NAD SKIN: Warm and dry. HEAD: Normocephalic. EYES: No scleral icterus. No injection or drainage. NECK: Supple, trachea midline. No JVD or lymphadenopathy. CARDIOVASCULAR: Regular rate and rhythm without murmurs, gallops, or rubs. RESPIRATORY: Breath sounds equal bilaterally. No accessory muscle use. GASTROINTESTINAL: Abdomen soft, non-tender, nondistended. MUSCULOSKELETAL: No cyanosis, or edema. BACK: Nontender without obvious deformity. No CVA tenderness. - Urinary Catheter Management Indwelling Urethral Catheter Cath placed during this visit: yes, but has since been removed by the nurse Reason for continuing: Acute urinary retention Insertion date: 06/24/18 Insertion time: 20:00 Removal date: 06/26/18 Removal time: 08:35 Assessment and Plan - Plan Pleural effusion, s/p TC COPD HTN Atelactesis CMP PHTN PLAN: Wean off 02 if sat >90% Symbicort 2 puffs bid Aerosol nebs Stable on RA SQ Lovenox Lisinopril 2.5 mg daily Metoprolol 12.5 mg daily added Stable from Pulm standpoint
[2018-06-26 19:51] LABS: Free Kappa/Lambda Light Chain 0.94 (0.26-1.65); Lambda Light Chain, Free 17.1 mg/L (5.7-26.3)
[2018-06-27 06:54] LABS: Calcium 7.7 mg/dL (8.5-10.1); Carbon Dioxide 27.4 meq/L (21.0-32.0); Potassium 4.2 meq/L (3.5-5.1)
[2018-06-27] MEDS: Pantoprazole Sodium 20 MG DR Tablet PO SCH (08:32)
[2018-06-27] MEDS: Furosemide 20 MG Tablet PO SCH (08:32)
[2018-06-27] MEDS: Lisinopril 5 MG Tablet PO SCH (08:32)
[2018-06-27] MEDS: Budesonide-Formoterol 160/4.5 MCG 6 GM Inhaler INH SCH (08:33)
--- NOTE | 2018-06-27 08:35 | P.PN ---
Subjective Interval history: Follow up for CHF. The patient again reports feeling much better. Denies any chest pain or shortness of breath. Stable on room air. Awaiting approval to return to [facility]. Physical Exam Vital signs: Vital Signs 06/26/18 09:00 06/26/18 11:00 06/26/18 12:00 Temperature 97.2 F L Pulse Rate 101 H 96 H Respiratory Rate 18 Blood Pressure 117/58 L Pulse Oximetry 94 L 96 06/26/18 16:00 06/26/18 20:00 06/27/18 00:00 Temperature 98 F 97.8 F 97.8 F Pulse Rate 84 83 82 Respiratory Rate 20 20 18 Blood Pressure 111/55 L 108/62 101/50 L Pulse Oximetry 95 96 92 L 06/27/18 04:00 Temperature 97.3 F L Pulse Rate 85 Respiratory Rate 17 Blood Pressure 95/46 L Pulse Oximetry 93 L Intake & Output 06/26/18 06/27/18 06/27/18 18:59 06:59 18:59 Intake Total 480 / 480 240 / 240 Output Total 1725 / 1725 450 / 450 Balance -1245 / -1245 -210 / -210 Weight 58.8 kg Intake: Oral 480 / 480 240 / 240 Output: Urine 1725 / 1725 450 / 450 Other: # Incontinent Voids 3 Date of Last Bowel Movement 06/25/18 06/25/18 # Bowel Movements 0 0 Narrative: GENERAL: Well-nourished, well-developed pleasant elderly female patient in [facility]. SKIN: Warm and dry. No rash. HEENT: Normocephalic. Atraumatic. Pupils equal and round. Mucous membranes pink and moist. CARDIOVASCULAR: Regular rate and rhythm. No murmur appreciated. RESPIRATORY: No accessory muscle use. Clear to auscultation. Breath sounds equal bilaterally. GASTROINTESTINAL: Abdomen soft, non-tender, nondistended. Normoactive bowel sounds x4. MUSCULOSKELETAL: No obvious deformities. Extremities without clubbing, cyanosis , or edema. NEUROLOGICAL: Awake and alert. No obvious cranial nerve deficits. Moving all extremities spontaneously. Normal speech. - Urinary Catheter Management Indwelling Urethral Catheter Cath placed during this visit: yes, but has since been removed by the nurse Reason for continuing: Acute urinary retention Insertion date: 06/24/18 Insertion time: 20:00 Removal date: 06/26/18 Removal time: 08:35 Results - Labs CBC & Chem 7: 06/21/18 10:10 06/27/18 05:07 Laboratory Results - last 24 hr 06/24/18 06/24/18 06/26/18 11:00 11:00 09:06 Sodium Potassium Chloride Carbon Dioxide Anion Gap BUN Creatinine Estimated GFR Random Glucose Calcium PEP Pathologist Comment Ur 24 Hour Volume 1725 Ur Total Protein 24 Hr 200 H Free [place] Light Chains 16.00 Free Lambda Light Chain 17.10 Free [place]/Lambda Ratio 0.94 06/27/18 05:07 Sodium 145 Potassium 4.2 Chloride 107 Carbon Dioxide 27.4 Anion Gap 11 BUN 11 Creatinine 1.10 H Estimated GFR 47 L Random Glucose 77 Calcium 7.7 L PEP Pathologist Comment Ur 24 Hour Volume Ur Total Protein 24 Hr Free [place] Light Chains Free Lambda Light Chain Free [place]/Lambda Ratio - Imaging Chest CTA 06/19/18 00:00 CONCLUSION: 1. Suboptimal exam with minimal contrast as above. No large central filling defects. 2. Moderate bilateral pleural effusions with compressive atelectasis. Emphysema. Also linear atelectasis left upper lobe posteriorly. Chest X-Ray 06/19/18 15:29 CONCLUSION: Moderate size left pleural effusion and atelectasis left mid-lung zone. Chest X-Ray 06/20/18 00:00 CONCLUSION: 1. No pneumothorax following recent left thoracentesis. Left pleural effusion has significantly decreased in size. 2. Stable opacity at the right base representing pleural effusion with associated volume loss and/or airspace consolidation. Thoracentesis Ultrasound 06/20/18 00:00 CONCLUSION: 1. Uncomplicated thoracentesis. Chest X-Ray 06/22/18 00:00 CONCLUSION: 1. Stable left lung following thoracentesis with no evidence of pneumothorax. 2. Persistent right basilar opacity characteristic of a pleural effusion. 3. Slightly more prominent left midlung atelectasis. Chest X-Ray 06/24/18 06:00 CONCLUSION: Stable chest appearance - Procedures Thoracentesis 06/20/18 Assessment and Plan - Plan 82-year-old female with: Bilateral pleural effusion CTA that revealed no PE with emphysematous changes and bilateral pleural effusion Pulmonology performed thoracentesis of left lung with symptomatic relief Dose of Lasix IV yesterday seems to have relieved her dyspnea, she is now off of oxygen 2D echocardiogram shows EF of 35-40% Repeat chest x-ray appears stable Continue Lasix Symptoms resolved, denies SOB Newly diagnosed Acute Systolic CHF Patient denies a history of congestive heart failure This is the first time she has had a occurrence of pulmonary effusions Echo 06/23 showed EF 35-40% Given Lasix 40 mg daily, decreased to 20mg at discharge as symptoms improved and BP low 24-hour urine collection ordered by cardiology to rule out amyloidosis Patient was started on very low doses lisinopril 2.5mg and metoprolol 12.5mg due to borderline hypotension Appreciate cardiology consult, cleared for discharge Acute on chronic kidney disease GFR during hospitalization ranged from 37-52 Necessary to observe renal function and response to the addition of Lasix Stable COPD Though there may have been element of COPD, her breathing improved following thoracentesis and treatment for CHF with diuresis Constipation Glycerin suppository added to bowel regimen Hypertension, chronic Well-controlled with current medications Continue home medications, diltiazem DVT Prophylaxis Lovenox Discharge Planning: Patient being discharged today 06/27 back to [facility] (delayed due to awaiting insurance authorization). See discharge summary from 06/25.
[2018-06-27 08:48] VITALS: BP 104/55; PULSE 93; RESP 16; TEMP 98; O2SAT 95
--- NOTE | 2018-06-27 11:33 | P.PNPL ---
Subjective Interval history: 82 YOWF with COPD, pl eff,s/p TC Breathing much better Pl fluid transudate No CP No new complaint Physical Exam Vital signs: Vital Signs 06/26/18 12:00 06/26/18 16:00 06/26/18 20:00 Temperature 97.2 F L 98 F 97.8 F Pulse Rate 96 H 84 83 Respiratory Rate 18 20 20 Blood Pressure 117/58 L 111/55 L 108/62 Pulse Oximetry 96 95 96 06/27/18 00:00 06/27/18 04:00 06/27/18 08:00 Temperature 97.8 F 97.3 F L 98 F Pulse Rate 82 85 93 H Respiratory Rate 18 17 16 Blood Pressure 101/50 L 95/46 L 104/55 L Pulse Oximetry 92 L 93 L 95 06/27/18 09:00 Temperature Pulse Rate 93 H Respiratory Rate Blood Pressure Pulse Oximetry Intake & Output 06/26/18 06/27/18 06/27/18 18:59 06:59 18:59 Intake Total 480 / 480 240 / 240 Output Total 1725 / 1725 450 / 450 Balance -1245 / -1245 -210 / -210 Weight 58.8 kg Intake: Oral 480 / 480 240 / 240 Output: Urine 1725 / 1725 450 / 450 Other: # Incontinent Voids 3 Date of Last Bowel Movement 06/25/18 06/25/18 06/25/18 # Bowel Movements 0 0 GENERAL: SKIN: Warm and dry. HEAD: Normocephalic. EYES: No scleral icterus. No injection or drainage. NECK: Supple, trachea midline. No JVD or lymphadenopathy. CARDIOVASCULAR: Regular rate and rhythm without murmurs, gallops, or rubs. RESPIRATORY: Breath sounds equal bilaterally. No accessory muscle use. GASTROINTESTINAL: Abdomen soft, non-tender, nondistended. MUSCULOSKELETAL: No cyanosis, or edema. BACK: Nontender without obvious deformity. No CVA tenderness.Elderly f, NAD - Urinary Catheter Management Indwelling Urethral Catheter Cath placed during this visit: yes, but has since been removed by the nurse Reason for continuing: Acute urinary retention Insertion date: 06/24/18 Insertion time: 20:00 Removal date: 06/26/18 Removal time: 08:35 Assessment and Plan - Plan Pleural effusion, s/p TC COPD HTN Atelactesis CMP PHTN PLAN: Wean off 02 if sat >90% Symbicort 2 puffs bid Aerosol nebs Stable on RA SQ Lovenox Lisinopril 2.5 mg daily Metoprolol 12.5 mg daily added Stable from Pulm standpoint FU in office 3 wks
== END 2018-06-27 11:12 ==
LOC: NEPC 14:41 → NEDA 14:41 → N04 20:10
PROVIDERS: ADMIT Hospitalist; ATTEND Hospitalist